=== PATIENT | female | born 1965 | race Caucasian/White ===

== ENCOUNTER → 2016-12-08 | Day surgery (SDC) | payer OTHER ==
[2016-11-29 13:03] VITALS: Ht 154.9 cm; Wt 86.4 kg
[~2016-12-08] VITALS: Ht 154.9 cm; Wt 86.4 kg
[~2016-12-08] MED LIST: ATEN-173 PO; ATV/1 PO; CLR10 PO; ESCI1TAB10 PO; FENO145T26 PO; LIDOCAINE HCL 2% 2 ML VIAL (20MG/ML) ONE; MIDAZOLAM HCL 1 MG/ML 2ML VIAL ONE; PHENYLEPHRINE 100MCG/ML 5ML SYR ONE; PROPOFOL IV EMULSION 10 MG/ML 20 ML VIAL IV ONE; SODIUM CHLORIDE 0.9% 500ML 500 ML IV ONE; TRVOPS OPB
--- NOTE | 2016-12-08 10:46 | Endo History and Physical ---
History & Physical Date of Service: December 08, 2016. Chief Complaint: screening Referring Physician: Dr. Wily Mares History of Present Illness 51 yo CF who presents for screening colonoscopy. Past Surgical History Hx Cardiac Surgery: No Hx Internal Defibrillator: No Hx Pacemaker: No Hx Abdominal Surgery: Yes (, RAMSES) Hx of Implantable Prosthesis: No Hx Post-Op Nausea and Vomiting: No Hx Cancer Surgery: No Hx Thoracic Surgery: No Hx Orthopedic: No Hx Urinary Tract Surgery: No Family History None Social History Smoking Status: Current Every Day Smoker Hx Substance Use: No Hx Alcohol Use: No Allergies Coded Allergies: NO KNOWN DRUG ALLERGIES (Verified Allergy, Unknown, none, 11/29/16) Current Medications Reported Home Medications Medications Dose Route/Sig Max Daily Dose Days Date Category Claritin (Loratadine) 10 Mg Tab 10 Mg PO QAM 11/29/16 Reported Lexapro (Escitalopram Oxalate) 20 Mg Tab 20 Mg PO QAM 04/30/14 Reported Tricor (Fenofibrate) 145 Mg Tab 145 Mg PO HS 04/30/14 Reported Ativan (Lorazepam) 1 Mg Tab 1 Mg PO HS 04/30/14 Reported Tenormin (Atenolol) 25 Mg Tab 25 Mg PO HS 06/04/09 Reported Travatan Oph Soln 0.004% * (Travoprost) 37 Drops/2.5 Ml Soln 1 Drop OPB HS 05/22/07 Reported Vital Signs Weight (Kilograms): 86.36 Height (Feet): 5 Height (Inches): 1 Date Time Temp Pulse Resp B/P Pulse Ox O2 Delivery O2 Flow Rate FiO2 12/08/16 09:48 36.8 93 18 140/86 97 Room Air Physical Exam General Appearance: WD/WN, no apparent distress Respiratory/Chest: Auscultation: breath sounds normal Cardiovascular: Heart Auscultation: RRR Abdomen: Bowel Sounds: normal Inspection & Palpation: soft, non-distended, no tenderness, guarding & rebound Assessment and Plan Assessment: 51 yo CF who presents for screening colonoscopy. Plan: Proceed with colonoscopy.
--- NOTE | 2016-12-08 11:26 | Discharge Instructions ---
Endoscopy Patient Instructions Date / Procedure(s) Performed December 08, 2016. Colonoscopy Allergy Information Coded Allergies: NO KNOWN DRUG ALLERGIES (Verified Allergy, Unknown, none, 11/29/16) Discharge Date / Findings December 08, 2016. Colon polyps Diverticulosis Internal hemorrhoids Provider Instructions Activity Restrictions - No exercising or heavy lifting for 24 hours. - Do not drink alcohol the day of the procedure. - Do not drive a car or operate machinery until the day after the procedure. - Do not make any important decisions or sign important papers in 24 hours after the procedure. Following Day: - Return to full activity which may include returning to work/school. Diet Start your diet with liquids and light foods (jello, soup, juice, toast). Then eat your usual diet if not nauseated. Treatment For Common After Affects For mild abdominal pain, bloating, or excessive gas: - Rest - Eat lightly - Lie on right side Follow-Up Information Follow-up with Dr. Wily Mares as scheduled Anesthesia Information What You Should Know You have had a procedure that required some medicine to reduce anxiety and discomfort. This treatment is called moderate sedation. After receiving the treatment, you may be sleepy, but you will be able to breathe on your own. The effects of the treatment may last for several hours. Follow these instructions along with Activity/Diet recommendations noted above: * Do NOT do anything where dizziness or clumsiness would be dangerous. * Rest quietly at home today, then you can be up and about tomorrow. * Have a responsible person stay with you the rest of today. * You may have had an I.V. today. If so, you may take the dressing off later today. Recommendations Call your doctor if: * Trouble breathing * Continuous vomiting for more than 24 hours * Temperature above 101 degrees * Severe abdominal pain or bloating * Pain not relieved by pain medicine ordered * There is increased drainage or redness from any incision * A large amount of rectal bleeding greater than 2-3 tablespoons. (If you had a polyp/s removed or have hemorrhoids, a small amount of blood - from the rectum is to be expected.) * You have any unanswered questions or concerns. IN THE EVENT OF A SERIOUS EMERGENCY, GO TO THE NEAREST EMERGENCY ROOM Your discharge instructions were prepared by provider Ureil Yeager. Patient Instructions Signature Page Veronica Gresham Patient (or Guardian) Signature/Date: I have read and understand the instructions given to me by my caregivers. Caregiver/RN/Doctor Signature/Date: The above-named patient and/or guardian has received patient instructions on this date. + Original Patient Signature Page (only) stays with chart. Please make copy for patient.
--- NOTE | 2016-12-08 11:26 | GI REPORT ---
Procedure Date: 12/08/2016 10:38 AM Procedure: Colonoscopy Indications: Screening for colorectal malignant neoplasm Medicines: Monitored Anesthesia Care Complications: No immediate complications. Estimated Blood Loss: Estimated blood loss: none. Procedure: Pre-Anesthesia Assessment: - Prior to the procedure, a History and Physical was performed, and patient medications and allergies were reviewed. The patient's tolerance of previous anesthesia was also reviewed. The risks and benefits of the procedure and the sedation options and risks were discussed with the patient. All questions were answered, and informed consent was obtained. Prior Anticoagulants: The patient has taken no previous anticoagulant or antiplatelet agents. ASA Grade Assessment: II - A patient with mild systemic disease. After reviewing the risks and benefits, the patient was deemed in satisfactory condition to undergo the procedure. After I obtained informed consent, the scope was passed under direct vision. Throughout the procedure, the patient's blood pressure, pulse, and oxygen saturations were monitored continuously. The scope was introduced through the anus and advanced to the terminal ileum. The terminal ileum, ileocecal valve, appendiceal orifice, and rectum were photographed. The colonoscopy was performed without difficulty. The patient tolerated the procedure well. The quality of the bowel preparation was good. Findings: Five sessile polyps were found in the rectum, in the sigmoid colon, in the ascending colon and in the cecum. The polyps were 5 to 10 mm in size. These polyps were removed with a hot snare. Resection and retrieval were complete. Multiple small-mouthed diverticula were found in the sigmoid colon. Non-bleeding internal hemorrhoids were found during retroflexion. The hemorrhoids were small. Impression: - Five 5 to 10 mm polyps in the rectum, in the sigmoid colon, in the ascending colon and in the cecum, removed with a hot snare. Resected and retrieved. - Diverticulosis in the sigmoid colon. - Non-bleeding internal hemorrhoids. Recommendation: - Resume previous diet. - Continue present medications. - Repeat colonoscopy for surveillance based on pathology results. - Return to primary care physician as previously scheduled. Uriel Yeager DO 12/08/2016 11:25:00 AM This report has been signed electronically. Note Initiated On: 12/08/2016 10:38 AM I attest to the content of the Intraoperative Record and orders documented therein, exceptions below
[2016-12-08 11:57] VITALS: BP 118/68; PULSE 69; O2SAT 96
--- NOTE | 2016-12-08 13:42 | Anesthesiology Progress Note ---
Anesthesia Post Op Note Date & Time December 08, 2016 at 13:41 Vital Signs Pain Intensity: 0 Vital Signs Past 12 Hours Date Time Temp Pulse Resp B/P Pulse Ox O2 Delivery O2 Flow Rate FiO2 12/08/16 11:57 69 20 118/68 96 Room Air 12/08/16 11:44 62 18 133/80 96 Room Air 12/08/16 11:29 73 18 129/89 96 Room Air 12/08/16 11:14 73 18 111/97 96 Room Air 12/08/16 09:48 36.8 93 18 140/86 97 Room Air Notes Mental Status: alert / awake / arousable, participated in evaluation Pt Amnestic to Procedure: Yes Nausea / Vomiting: adequately controlled Pain: adequately controlled Airway Patency, RR, SpO2: stable & adequate BP & HR: stable & adequate Hydration State: stable & adequate Anesthetic Complications: no major complications apparent
== END | disposition home or self-care (01) ==
LOC: C.GI 09:35
PROVIDERS: ATTEND Internal Medicine
DX: Z12.11 Encounter for screening for malignant neoplasm of colon (principal); K64.8 Other hemorrhoids; K57.30 Diverticulosis of large intestine without perforation or abscess without bleeding; F17.200 Nicotine dependence, unspecified, uncomplicated; Z90.49 Acquired absence of other specified parts of digestive tract

== ENCOUNTER → 2017-10-06 | Outpatient (CLI) | payer OTHER ==
[~2017-10-06] MED LIST changes: -LIDOCAINE HCL 2% 2 ML VIAL (20MG/ML) ONE; -MIDAZOLAM HCL 1 MG/ML 2ML VIAL ONE; -PHENYLEPHRINE 100MCG/ML 5ML SYR ONE; -PROPOFOL IV EMULSION 10 MG/ML 20 ML VIAL IV ONE; -SODIUM CHLORIDE 0.9% 500ML 500 ML IV ONE
[2017-10-06 08:00] LABS: BASO % 0.7 %; BASO ABS # 0.07 K/uL (0-0.2); EOS % 3.5 %; EOS ABS # 0.33 K/uL (0-0.5); HEMATOCRIT 42.2 % (37-47); HEMOGLOBIN 14.1 g/dL (12.0-16.0); IG# 0.01 K/uL (0.00-0.02); LYMPH % 36.3 %; MEAN CELL VOLUME 90.8 fL (80-100); MEAN CORPUSCULAR HEMOGLOBIN 30.3 pg (25-34); MEAN CORPUSCULAR HGB CONC 33.4 g/dl (32-36); MEAN PLATELET VOLUME 9.6 fL (7.4-10.4); MONO % 5.6 %; MONO ABS # 0.52 K/uL (0.11-0.59); NEUT % 53.8 %; NEUT ABS # 5.03 K/uL (1.4-6.5); PLATELET COUNT 369 K/uL (130-400); RED CELL DISTRIBUTION WIDTH CV 13.9 % (11.5-14.5); RED CELL DISTRIBUTION WIDTH SD 45.9 fL (36.4-46.3); WHITE BLOOD COUNT 9.36 K/uL (4.8-10.8)
[2017-10-06 08:24] LABS: ALT/SGPT 35 U/L (12-78); BLOOD UREA NITROGEN 15 mg/dl (7-18); CALCIUM 8.9 mg/dl (8.5-10.1); CARBON DIOXIDE 25 mmol/L (21-32); CHOLESTEROL 165 mg/dl (0-200); CREATININE 0.85 mg/dl (0.60-1.20); GLUCOSE 127 mg/dl (70-99); POTASSIUM 4.1 mmol/L (3.5-5.1); SODIUM 136 mmol/L (136-145)
[2017-10-06 08:42] LABS: ALKALINE PHOSPHATASE 60 U/L (45-117); AST/SGOT 21 U/L (15-37); LDL CHOLESTEROL CALCULATED 89 mg/dl; TOTAL PROTEIN 7.7 gm/dl (6.4-8.2)
== END | disposition home or self-care (01) ==
LOC: C.LAB 07:10
PROVIDERS: ATTEND Family Medicine
DX: E11.65 Type 2 diabetes mellitus with hyperglycemia (principal); E03.9 Hypothyroidism, unspecified; E78.2 Mixed hyperlipidemia; I10 Essential (primary) hypertension

== ENCOUNTER → 2017-11-08 | Outpatient (CLI) | payer OTHER | END | disposition home or self-care (01) | LOC: C.LAB 09:38 | PROVIDERS: ATTEND Emergency Medicine | DX: R30.0 Dysuria (principal); R35.0 Frequency of micturition ==

== ENCOUNTER 2022-12-02 19:53 | Inpatient (IN) ==
[2022-12-02] MEDS ORDERED: HYDROmorphone INJ 0.5 MG/0.5 ML SYR IV PRN (20:40)
[2022-12-02] MEDS ORDERED: ONDANSETRON INJ 2 MG/ML 2 ML VIAL IV STA (20:40)
[2022-12-02 20:45] LABS: Basophils # (auto) 0.09 K/uL (0-0.2); Basophils % (auto) 0.7 %; Eosinophils # (auto) 0.25 K/uL (0-0.50); Hematocrit (blood only) 44.8 % (37.0-47.0); Hemoglobin 14.8 g/dl (12.0-16.0); Immature Granulocytes # (auto) 0.09 K/uL (0.01-0.20); Immature Granulocytes % (auto) 0.7 %; Lymphocytes # (auto) 4.23 K/uL (1.2-3.4); Mean Corpuscular Hemoglobin 30.1 pg (25.0-34.0); Mean Corpuscular Volume 91.1 fL (80.0-100.0); Mean Platelet Volume 9.1 fL (9.4-12.4); Monocytes # (auto) 0.69 K/uL (0.11-0.59); Monocytes % (auto) 5.4 %; Neutrophils # (auto) 7.46 K/uL (1.40-6.50); Neutrophils % (auto) 58.2 %; Platelet Count 403 K/uL (130-400); RDW Standard Deviation 46.9 fL (36.4-46.3); Red Blood Count 4.92 M/uL (4.20-5.40); White Blood Count 12.81 K/ul (4.8-10.8)
--- NOTE | 2022-12-02 20:45 | Emergency Department Note ---
Impression & Plan Acute left-sided back pain with sciatica ED Provider Note INFORMANT: Patient ED PROVIDER(S): Francis Culver MD CHIEF COMPLAINT: Back pain PLAN: Disposition: Admitted Condition: Good Outpatient prescription management: none Referral: None MEDICAL DECISION MAKING: Patient presented because of acute worsening of her low back pain issues. Patient is pending surgery with Dr. Herndon. She had a work-up initiated. She was treated with a dose of IV Dilaudid and initially felt better but noted an ill feeling with the medication and requested something different. She was t reated with multiple doses of IV morphine. The patient had blood work obtained. Chemistry panel was unremarkable however her CBC revealed a leukocytosis. This was new compared to prior. The patient and I discussed doing advanced imaging and she was in agreement. MRI ordered. Patient was given a dose of Ativan prior to MRI. I did consult with her spine surgeon, Dr. Herndon. In light of the patient's acute worsening he felt that admission for pain control and consultation was in order. Patient underwent MR imaging and did show significant stenosis and disc disease. Dr. Herndon did request internal medicine to admit the patient. Consultation was made with Dr. Grabiel Evans of the [facility] service. Patient was evaluated in the ER for further management. Discussed with patient access manager After review of the information above and other included data, I feel the patie nt requires admission. Triage Nursing notes reviewed and agree them. Vital Signs: reviewed and remarkable for no significant abnormalities Prior /Outside records reviewed: prior spine records reviewed Differential diagnosis: Musculoskeletal, disc herniation, fracture, metastatic disease, cord compression, discitis, sciatica, cauda equina, infection, aortic disease, renal colic, gastrointestinal, as well as other pathologies. Diagnostics, as interpreted by me: ECG: none Cardiac Monitoring: Cardiac monitoring ordered by me: The patient was placed on continuous cardiac monitoring and observed. It revealed a normal sinus rhythm at 64 beats per minute without ectopy or evidence of dysrhythmia. Medical decision rules: none Imaging studies: MR imaging as above. Degenerative disc disease present. I refer you to the EMR for further details. HPI: The patient is a 57 year old female who presents to the Emergency Room with complaints of left lower back pain. This started to worsen 3 days ago and is recurrent for her. She has noted previous issues but since june has had more issues. Saw Dr. Herndon and found to have significant DDD and is scheduled for surgery in January. The patient also notes the following associated symptoms, nausea, numbness in the left buttock and left inner thigh. The patient has tried ibuprofen for relieving factors. Current pain is rated as 8/10. Pt denies LOC, headache, fevers, chills, diaphoresis, visual changes, neck pain, chest pain, breathing difficulties, vomiting, abdominal pain, melena, hematochezia, urinary symptoms, bowel or bladder issues, weakness, lymp hadenopathy, rash, or other complaints. PAST MEDICAL HISTORY: See Below, DM PAST SURGICAL HISTORY: See Below, SOCIAL HISTORY: See Below, HOME MEDICATIONS: See Below ALLERGIES: See Below VITALS: See Below PHYSICAL EXAMINATION: GENERAL: Awake, alert, uncomfortable-appearing, in no distress HENT: Normocephalic, atraumatic. Oropharynx unremarkable. EYES: Normal conjunctiva. Sclera non-icteric. NECK: Inspection normal. Non-tender. Supple. No nuchal rigidity. FROM. No masses. RESPIRATORY: Clear to auscultation. No wheezes. No rales. Normal respiratory effort. CARDIAC: Normal rate. Normal rhythm. No murmurs. No rubs. Extremities warm and well perfused. Pulses equal. No JVD. GI: Soft, non-distended. No tenderness to palpation. No rebound or guarding. No masses. RECTAL: Deferred. MUSCULOSKELETAL: Atraumatic. Chest examination reveals no tenderness. The back is symmetrical on inspection without obvious abnormality. There is no CVA tenderness to palpation. No joint edema. LOWER EXTREMITIES: Calves are equal size bilaterally and non-tender. No edema. No discoloration. NEURO: Normal sensorium. No sensory or motor deficits noted. +left SLR. No saddle anesthesia. SKIN: No rash or jaundice noted. Past Med/Surg History Medical History (Updated 12/03/22 @ 10:30 by Samir Herndon DO) Anxiety Diabetes mellitus, type 2 Elevated platelet count FOLLOWS HEMATOLOGY (BEING MONITORED) Glaucoma Hx of colonic polyps Hyperlipidemia Hypertension Surgical History History of cardiac cath 7 YRS AGO @ [facility] > FOR CHEST PAIN > NO STENTS History of section X 1 History of cholecystectomy History of colonoscopy History of dilatation and curettage History of endoscopic sinus surgery History of tooth extraction Family History Grandmother (Maternal) Diabetes Family history of diabetes mellitus Mother Family history of diabetes mellitus Other No family history of adverse response to anesthesia Social History Smoking Status: Current every day smoker Tobacco Type: Cigarettes Cigarettes Per Day: 10; Second Hand Exposure: Yes (IN THE PAST); Do You Dip or Chew Tobacco: No; Hx Alcohol Use: Yes Hx Substance Use: No Preferred Language: Hungarian Communication Ability: Effective Back Maker Required: No Beliefs That Will Affect Care: None Current Living Situation: Family Current Living Situation Comment: Lives with and step son Feels Safe at Home: Yes Assistive Devices: Glasses Allergies Allergies Allergy/AdvReac Type Severity Reaction Status Date / Time No Known Allergies Allergy Verified 12/02/22 20:28 Home Meds Home Medications Medication Instructions Recorded Confirmed atenolol 25 mg tablet 25 mg PO QPM 06/06/19 12/02/22 atorvastatin 20 mg tablet (Lipitor) 20 mg PO HS 06/06/19 12/02/22 cetirizine 10 mg tablet (Zyrtec) 10 mg PO QAM 06/06/19 12/02/22 fenofibrate nanocrystallized 145 145 mg PO HS 06/06/19 12/02/22 mg tablet lorazepam 1 mg tablet (Ativan) 1 mg PO HS PRN Anxiety 06/06/19 12/02/22 metformin 500 mg tablet 500 mg PO BID 06/06/19 12/02/22 travoprost 0.004 % eye drops 1 drp OPB HS 06/06/19 12/02/22 (Travatan Z) dorzolamide 22.3 mg-timolol 6.8 1 drp ophthalmic (eye) [facility] 11/02/20 12/02/22 mg/mL eye drops lisinopril 20 mg tablet 20 mg PO QAM 11/02/20 12/02/22 acetaminophen 500 mg tablet 1,000 mg PO DIRECTED PRN 12/02/22 12/02/22 (Tylenol Extra Strength) PAIN/FEVER docusate sodium 100 mg capsule 100 mg PO DAILY 12/02/22 12/02/22 (Colace) empagliflozin 25 mg tablet 25 mg PO QAM 12/02/22 12/02/22 (Jardiance) ibuprofen 200 mg tablet 400 mg PO DIRECTED PRN 12/02/22 12/02/22 PAIN/FEVER Previous Rx's Medication Instructions Recorded tizanidine 4 mg tablet 4 mg PO BID PRN muscle spasticity 10/06/22 #30 tabs Results & Data (ED) Vital Signs Vital Signs - 24 hr 12/02/22 19:55 12/02/22 21:00 12/02/22 21:01 Temperature 36.6 C Temperature Source Temporal Artery Scan Pulse Rate 101 H Pulse Rate [Finger] 83 Respiratory Rate 18 20 Respiratory Effort / Characteristics Respiratory Depth Normal Blood Pressure 182/89 H Blood Pressure [Left Arm] Blood Pressure Mean 120 Blood Pressure Mean [Left Arm] Pulse Oximetry 97 99 99 Oxygen Delivery Method Room Air Room Air Room Air Sepsis Recent Fever Within 48 Hours No Sepsis New/Unexplained Change in Mental Status No Sepsis Action Taken by Nursing No Action Required 12/02/22 21:00 12/03/22 03:30 Temperature Temperature Source Pulse Rate Pulse Rate [Finger] Respiratory Rate 16 Respiratory Effort / Characteristics Non-Labored Respiratory Depth Normal Blood Pressure Blood Pressure [Left Arm] 159/95 H 112/68 Blood Pressure Mean Blood Pressure Mean [Left Arm] 116 82 Pulse Oximetry 98 Oxygen Delivery Method Room Air Sepsis Recent Fever Within 48 Hours Sepsis New/Unexplained Change in Mental Status Sepsis Action Taken by Nursing Laboratory Data 12/02/22 20:29 12/02/22 20:29 Lab Results 12/02/22 12/02/22 12/02/22 Range/Units 20:29 20:29 22:30 WBC 12.81 H (4.8-10.8) K/ul RBC 4.92 (4.20-5.40) M/uL Hgb 14.8 (12.0-16.0) g/dl Hct 44.8 (37.0-47.0) % MCV 91.1 (80.0-100.0) fL MCH 30.1 (25.0-34.0) pg MCHC 33.0 (32.0-36.0) g/dL RDW Std Deviation 46.9 H (36.4-46.3) fL RDW Coeff of Robert 14.0 (11.5-14.5) % Plt Count 403 H (130-400) K/uL MPV 9.1 L (9.4-12.4) fL Immature Gran % (Auto) 0.7 % Neut % (Auto) 58.2 % Lymph % (Auto) 33.0 % [place] % (Auto) 5.4 % Eos % (Auto) 2.0 % Baso % (Auto) 0.7 % Neut # (Auto) 7.46 H (1.40-6.50) K/uL Lymph # (Auto) 4.23 H (1.2-3.4) K/uL [place] # (Auto) 0.69 H (0.11-0.59) K/uL Eos # (Auto) 0.25 (0-0.50) K/uL Baso # (Auto) 0.09 (0-0.2) K/uL Immature Gran # (Auto) 0.09 (0.01-0.20) K/uL Sodium 134 L (136-145) mmol/L Potassium 4.1 (3.5-5.1) mmol/L Chloride 102 (98-107) mmol/L Carbon Dioxide 24 (21-32) mmol/L Anion Gap 8 (3-11) BUN 17 (6-23) mg/dl Creatinine 1.04 (0.6-1.2) mg/dl Est Cr Clr Drug Dosing 57.5 ml/min Est GFR ( Amer) 69.1 ml/min Est GFR (Non-Af Amer) 59.6 ml/min BUN/Creatinine Ratio 16.3 (10-20) Glucose 141 H (70-99(Fasting)) mg/dl Calcium 9.8 (8.6-10.3) mg/dl Total Bilirubin 0.2 (0.2-1.0) mg/dl AST 17 (13-39) U/L ALT 17 (7-52) U/L Alkaline Phosphatase 51 (34-104) U/L C-Reactive Protein < 0.50 (0-0.5) mg/dl Total Protein 7.4 (6.0-8.3) gm/dl Albumin 4.6 (3.4-5.0) gm/dl Globulin 2.8 (2.5-4.0) gm/dl Albumin/Globulin Ratio 1.6 (0.9-2) Urine Color Yellow Urine Appearance Clear (Clear) Urine pH 7.0 (4.5-7.5) Ur Specific [place] 1.007 (1.000-1.030) Urine Protein Negative (Negative) Urine Glucose (UA) 2+ H (Negative) Urine Ketones Negative (Negative) Urine Blood 1+ H (Negative) Urine Nitrite Negative (Negative) Urine Bilirubin Negative (Negative) Urine Urobilinogen Negative (Negative) Ur Leukocyte Esterase Trace H (Negative) Urine WBC (Auto) 1-5 (0-5) /hpf Urine RBC (Auto) 0-4 (0-4) /hpf U Hyaline Cast (Auto) 0 (0-5) /lpf U Epithel Cells (Auto) 5-10 H (0-5) /lpf Urine Bacteria (Auto) Negative (Negative) SARS-CoV-2, RNA, NAAT (NEGATIVE) 12/03/22 Range/Units 01:35 WBC (4.8-10.8) K/ul RBC (4.20-5.40) M/uL Hgb (12.0-16.0) g/dl Hct (37.0-47.0) % MCV (80.0-100.0) fL MCH (25.0-34.0) pg MCHC (32.0-36.0) g/dL RDW Std Deviation (36.4-46.3) fL RDW Coeff of Robert (11.5-14.5) % Plt Count (130-400) K/uL MPV (9.4-12.4) fL Immature Gran % (Auto) % Neut % (Auto) % Lymph % (Auto) % [place] % (Auto) % Eos % (Auto) % Baso % (Auto) % Neut # (Auto) (1.40-6.50) K/uL Lymph # (Auto) (1.2-3.4) K/uL [place] # (Auto) (0.11-0.59) K/uL Eos # (Auto) (0-0.50) K/uL Baso # (Auto) (0-0.2) K/uL Immature Gran # (Auto) (0.01-0.20) K/uL Sodium (136-145) mmol/L Potassium (3.5-5.1) mmol/L Chloride (98-107) mmol/L Carbon Dioxide (21-32) mmol/L Anion Gap (3-11) BUN (6-23) mg/dl Creatinine (0.6-1.2) mg/dl Est Cr Clr Drug Dosing ml/min Est GFR ( Amer) ml/min Est GFR (Non-Af Amer) ml/min BUN/Creatinine Ratio (10-20) Glucose (70-99(Fasting)) mg/dl Calcium (8.6-10.3) mg/dl Total Bilirubin (0.2-1.0) mg/dl AST (13-39) U/L ALT (7-52) U/L Alkaline Phosphatase (34-104) U/L C-Reactive Protein (0-0.5) mg/dl Total Protein (6.0-8.3) gm/dl Albumin (3.4-5.0) gm/dl Globulin (2.5-4.0) gm/dl Albumin/Globulin Ratio (0.9-2) Urine Color Urine Appearance (Clear) Urine pH (4.5-7.5) Ur Specific [place] (1.000-1.030) Urine Protein (Negative) Urine Glucose (UA) (Negative) Urine Ketones (Negative) Urine Blood (Negative) Urine Nitrite (Negative) Urine Bilirubin (Negative) Urine Urobilinogen (Negative) Ur Leukocyte Esterase (Negative) Urine WBC (Auto) (0-5) /hpf Urine RBC (Auto) (0-4) /hpf U Hyaline Cast (Auto) (0-5) /lpf U Epithel Cells (Auto) (0-5) /lpf Urine Bacteria (Auto) (Negative) SARS-CoV-2, RNA, NAAT NEGATIVE (NEGATIVE) Administered Medications Acetaminophen (Acetaminophen 500 Mg Tab) 1,000 mg PO TID [facility] Stop: 01/02/23 08:59 Last Admin: 12/03/22 14:32 Dose: Not Given Documented By: Admin: 12/03/22 09:58 Dose: 1,000 mg Documented By: JOSEPH Cetirizine HCl (Cetirizine Hcl 10 Mg Tablet) 10 mg PO QAM [facility] Stop: 01/02/23 08:59 Last Admin: 12/03/22 11:00 Dose: Not Given Documented By: JOSEPH Dorzolamide/Timolol (Dorzolamide/Timolol 22.3/6.8mg/Ml 10 Ml Btl) 1 drops OP BID [facility] Stop: 01/02/23 08:59 Last Admin: 12/03/22 08:34 Dose: 1 drops Documented By: JOSEPH Heparin Sodium (Porcine) (Heparin Sod 5,000 Unit/0.5 Ml Vial) 5,000 units SQ Q12 [facility] Stop: 01/02/23 08:59 Last Admin: 12/03/22 08:33 Dose: 5,000 units Documented By: JOSEPH Dexamethasone 4 mg/ Syringe 1 mls @ 1 mls/min IV Q8H [facility] Stop: 01/02/23 09:59 Last Admin: 12/03/22 17:36 Dose: 1 mls/min Documented By: Admin: 12/03/22 09:58 Dose: 1 mls/min Documented By: JOSEPH Promethazine HCl 12.5 mg/ (Sodium Chloride) 50.5 mls @ 202 mls/hr IV Q6H PRN PRN Reason: Nausea And Vomiting Stop: 01/02/23 11:33 Last Infusion: 12/03/22 12:05 Dose: 0 mls/hr Documented By: Admin: 12/03/22 11:46 Dose: 202 mls/hr Documented By: JOSEPH Insulin Aspart (Insulin Aspart Per Unit Charge) 0 units SC Q6 [facility] Stop: 01/02/23 06:14 Last Admin: 12/03/22 17:29 Dose: 7 units Documented By: JOSEPH Co-signed By: ABILIO Admin: 12/03/22 13:00 Dose: Not Given Documented By: Admin: 12/03/22 06:36 Dose: Not Given Documented By: GUERO Co-signed By: ROYA Lidocaine (Lidocaine 5% 1 Patch) 1 patch TD QAM [facility] Stop: 01/02/23 08:59 Last Admin: 12/03/22 09:58 Dose: 1 patch Documented By: JOSEPH Morphine Sulfate (Morphine Sulfate 4 Mg/Ml 1 Ml Carp\Vial) 4 mg IV Q3H PRN PRN Reason: Severe Pain (Scale 7, 8, 9,10) Stop: 12/17/22 05:20 Last Admin: 12/03/22 19:07 Dose: 4 mg Documented By: Admin: 12/03/22 15:20 Dose: 4 mg Documented By: Admin: 12/03/22 12:29 Dose: 4 mg Documented By: Admin: 12/03/22 07:50 Dose: 4 mg Documented By: JOSEPH Ondansetron HCl (Ondansetron Inj 2 Mg/Ml 2 Ml Vial) 4 mg IV Q6H PRN PRN Reason: Nausea Stop: 01/02/23 05:20 Last Admin: 12/03/22 15:20 Dose: 4 mg Documented By: Admin: 12/03/22 07:50 Dose: 4 mg Documented By: JOSEPH Discontinued Medications Hydromorphone HCl (Hydromorphone Inj 0.5 Mg/0.5 Ml Syr) 0.5 mg IV Q15M PRN PRN Reason: Pain Stop: 12/16/22 20:39 Last Admin: 12/02/22 20:54 Dose: 0.5 mg Documented By: CANDELARIA Lorazepam (Lorazepam 2 Mg/1 Ml Vial) 1 mg IV NOW STA Stop: 12/02/22 23:17 Last Admin: 12/03/22 01:29 Dose: 1 mg Documented By: SHAYLA Lorazepam (Lorazepam 2 Mg/1 Ml Vial) Confirm Administered Dose 2 mg .ROUTE .STK- MED ONE Stop: 12/03/22 01:27 Last Admin: 12/03/22 01:28 Dose: Not Given Documented By: SHAYLA Morphine Sulfate (Morphine Sulfate 4 Mg/Ml 1 Ml Carp\Vial) 2 mg IV Q15M PRN PRN Reason: Pain Stop: 12/16/22 21:45 Last Admin: 12/03/22 04:17 Dose: 2 mg Documented By: Admin: 12/03/22 02:42 Dose: 2 mg Documented By: Admin: 12/02/22 23:42 Dose: 2 mg Documented By: Admin: 12/02/22 22:20 Dose: 2 mg Documented By: CANDELARIA Ondansetron HCl (Ondansetron Inj 2 Mg/Ml 2 Ml Vial) 4 mg IV NOW STA Stop: 12/02/22 20:41 Last Admin: 12/02/22 20:54 Dose: 4 mg Documented By: CANDELARIA Discharge Plan Visit Data Chief Complaint: Back Injury/Pain Stated Complaint: BACK AND HIP PAIN ED Provider: Francis Culver Discharge Problem: Acute left-sided back pain with sciatica Patient Disposition: Admitted As Inpatient Discharge Instructions Interventions: ED Discharge Assessment Last Done: 12/03/22 05:15
[2022-12-02 20:58] LABS: Alanine Aminotransferase 17 U/L (7-52); Albumin Globulin Ratio 1.6 (0.9-2); Albumin Level 4.6 gm/dl (3.4-5.0); Alkaline Phosphatase 51 U/L (34-104); Anion Gap 8 (3-11); Aspartate Aminotransferase 17 U/L (13-39); BUN Creatinine Ratio 16.3 (10-20); Bilirubin,Total 0.2 mg/dl (0.2-1.0); Blood Urea Nitrogen 17 mg/dl (6-23); C Reactive Protein < 0.50 mg/dl (0-0.5); Calcium 9.8 mg/dl (8.6-10.3); Carbon Dioxide 24 mmol/L (21-32); Chloride 102 mmol/L (98-107); Creatinine Clr Calc Pharmacy 57.5 ml/min; Est GFR (African American) 69.1 ml/min; Est GFR (Non-African American) 59.6 ml/min; Globulin 2.8 gm/dl (2.5-4.0); Glucose 141 mg/dl (70-99(Fasting)); Potassium 4.1 mmol/L (3.5-5.1); Sodium 134 mmol/L (136-145); Total Protein 7.4 gm/dl (6.0-8.3)
[2022-12-02] MEDS: MoRPHine SULFATE 4 MG/ML 1 ML CARP\\VIAL IV PRN ×2 (22:20→23:42)
[2022-12-02 22:48] LABS: Appearance Urine Clear (Clear); Bacteria Urine Automated Negative (Negative); Bilirubin Urine Negative (Negative); Blood Urine 1+ (Negative); Cast Urine Automated 0 /lpf (0-5); Color Urine Yellow; Glucose Urine UA 2+ (Negative); Ketones Urine Negative (Negative); Leukocyte Esterase Urine Trace (Negative); Nitrite Urine Negative (Negative); Protein Urine Negative (Negative); RBC Urine Automated 0-4 /hpf (0-4); Specific Gravity Urine 1.007 (1.000-1.030); Urobilinogen Urine Negative (Negative)
[2022-12-02] MEDS ORDERED: LORazepam 2 MG/1 ML VIAL IV STA (23:16)
[2022-12-03] MEDS ORDERED: LORazepam 2 MG/1 ML VIAL ONE (01:26)
--- NOTE | 2022-12-03 02:28 | Magnetic Resonance Report ---
Exam(s): MRI L SPINE Without Contrast EXAM: MR Lumbar Spine Without Intravenous Contrast CLINICAL HISTORY: Reason for exam: low back pain, left sciatica, elev. WBC. TECHNIQUE: Magnetic resonance images of the lumbar spine without intravenous contrast in multiple planes. COMPARISON: 07/12/2022. FINDINGS: Vertebrae: There is mild anterolisthesis of L5 on S1 (6 mm). Interspaces: Multilevel disc desiccation seen, more severe from L3-S1. Spinal cord: The spinal cord terminates at mid L1 level with normal signal in the visualized portion. Soft tissues: Unremarkable. DISCS/SPINAL CANAL/NEURAL FORAMINA: L1-L2: Disc desiccation. Mild diffuse posterior disc bulge. No spinal stenosis or neuroforaminal encroachment. L2-L3: Disc desiccation. Mild diffuse posterior disc bulge. No spinal stenosis or neuroforaminal encroachment. L3-L4: Mild hypertrophy of ligamentum flavum and facet complex. Disc desiccation. Mild diffuse posterior disc bulge. No spinal stenosis or neuroforaminal encroachment. L4-L5: Broad-based central disc protrusion contouring the anterior aspect of the thecal sac. Minimal AP diameter of the thecal sac measures 7.9 mm. No significant spinal stenosis. No neuroforaminal impingement. L5-S1: Mild anterolisthesis as described. Nonspecific hypertrophy of the bilateral facets. No spinal stenosis. Other findings: There is multilevel narrowing of disc height consistent with disc degenerative disease. IMPRESSION: 1. Central disc protrusion at L4-L5 with mild narrowing of the thecal sac. No severe neuroforaminal encroachment noted. 2. Underlying disc degenerative disease as described with no acute fracture. 3. Mild, grade 1 anterolisthesis of L5 on S1. Electronically signed by: Radha Rodríguez MD 12/03/22 02:27 AM
[2022-12-03] MEDS: MoRPHine SULFATE 4 MG/ML 1 ML CARP\\VIAL IV PRN ×7 (02:42→22:14)
--- NOTE | 2022-12-03 03:33 | History & Physical Report ---
Date of Service December 03, 2022 Assessment & Plan (1) Acute left-sided back pain with sciatica: (2) Disc degeneration, lumbosacral: (3) Low back pain radiating to left lower extremity: (4) Spondylolysis, lumbosacral: (5) Spondylolisthesis at L5-S1 level: (6) Hyperlipidemia: (7) Hypertension: (8) Diabetes mellitus, type 2: (9) Anxiety: Plan Lumbar degenerative disc disease/L5-S1 herniated disc/left lower extremity radiculopathy- Give dexamethasone 10 mg IV now, then 4 mg IV every 8 hours Acetaminophen 650 mg p.o. every 6 hours as needed for mild pain or fever [place] 5/325, 1 every 4 hours as needed for moderate pain Morphine sulfate 4 mg IV every 4 hours as needed for severe pain Continue tizanidine 4 mg p.o. twice daily as needed N.p.o. overnight until assessed by spine surgery Consult orthopedic spine surgery Dr. Herndon Hypertension- Continue atenolol, hold lisinopril Diabetes mellitus- Hold metformin and Jardiance Placed on Accu-Cheks with NovoLog SSI Hyperlipidemia- Hold atorvastatin and fenofibrate Glaucoma- Continue usual eyedrops History of Present Illness Chief Complaint: The patient presents to the emergency department with worsening low back pain left buttock numbness and radicular pain down the left leg Primary Care Provider: Nichelle Pryor The patient is a 57-year-old female with a past medical history including tinnitus, hyperlipidemia, diabetes mellitus, hypertension, anxiety, lumbar degenerative disc disease and left lower extremity radiculopathy. She presents to the emergency department with worsening low back pain and left lower extremity radicular symptoms. The ED at spoken with orthopedic spine surgery Dr. Herndon, who wants the patient admitted to see in the a.m. Allergies Allergy/AdvReac Type Severity Reaction Status Date / Time No Known Allergies Allergy Verified 12/02/22 20:28 Home Medications Medication Instructions Recorded Confirmed Type atenolol 25 mg tablet 25 mg PO QPM 06/06/19 12/02/22 History atorvastatin 20 mg tablet (Lipitor) 20 mg PO HS 06/06/19 12/02/22 History cetirizine 10 mg tablet (Zyrtec) 10 mg PO QAM 06/06/19 12/02/22 History fenofibrate nanocrystallized 145 145 mg PO HS 06/06/19 12/02/22 History mg tablet lorazepam 1 mg tablet (Ativan) 1 mg PO HS PRN Anxiety 06/06/19 12/02/22 History metformin 500 mg tablet 500 mg PO BID 06/06/19 12/02/22 History travoprost 0.004 % eye drops 1 drp OPB HS 06/06/19 12/02/22 History (Travatan Z) dorzolamide 22.3 mg-timolol 6.8 1 drp ophthalmic (eye) [facility] 11/02/20 12/02/22 History mg/mL eye drops lisinopril 20 mg tablet 20 mg PO QAM 11/02/20 12/02/22 History tizanidine 4 mg tablet 4 mg PO BID PRN muscle spasticity 10/06/22 12/02/22 Rx #30 tabs acetaminophen 500 mg tablet 1,000 mg PO DIRECTED PRN 12/02/22 12/02/22 History (Tylenol Extra Strength) PAIN/FEVER docusate sodium 100 mg capsule 100 mg PO DAILY 12/02/22 12/02/22 History (Colace) empagliflozin 25 mg tablet 25 mg PO QAM 12/02/22 12/02/22 History (Jardiance) ibuprofen 200 mg tablet 400 mg PO DIRECTED PRN 12/02/22 12/02/22 History PAIN/FEVER Past Med/Surg History Medical History (Updated 12/03/22 @ 04:42 by Grabiel Evans MD) Anxiety Diabetes mellitus, type 2 Elevated platelet count FOLLOWS HEMATOLOGY (BEING MONITORED) Glaucoma Hx of colonic polyps Hyperlipidemia Hypertension Surgical History History of cardiac cath 7 YRS AGO @ [place] > FOR CHEST PAIN > NO STENTS History of section X 1 History of cholecystectomy History of colonoscopy History of dilatation and curettage History of endoscopic sinus surgery History of tooth extraction Family History Grandmother (Maternal) Diabetes Family history of diabetes mellitus Mother Family history of diabetes mellitus Other No family history of adverse response to anesthesia Social History Smoking Status: Former smoker Tobacco Type: Cigarettes Cigarettes Per Day: 10 CIG; Second Hand Exposure: Yes (IN THE PAST); Do You Dip or Chew Tobacco: No; Hx Alcohol Use: No Hx Substance Use: No Preferred Language: Sudanese Communication Ability: Effective Atmospheric Physicist Required: No Beliefs That Will Affect Care: None Current Living Situation: Family Current Living Situation Comment: AND STEP SON Feels Safe at Home: Yes Assistive Devices: Denture - Upper, Denture - Lower and Glasses Review of Systems Review of Systems: The patient denies chest pain, palpitations, shortness of breath, dyspnea on exertion, cough, lower extremity swelling, sore throat, fevers, chills, sweats, weight change, fatigue, nausea, vomiting, diarrhea , constipation, abdominal pain, pelvic pain, blood in urine or stool, dysuria, urinary frequency or urgency, lightheadedness, dizziness, headache, memory loss, loss of consciousness, rash, abnormal bruising or bleeding, imbalance, focal or generalized weakness, numbness or tingling in arms, generalized arthralgias or myalgias, neck pain, or night sweats. The review of systems is otherwise negative other than for that already noted above, and at least 10 systems have been reviewed. Physical Exam Physical Exam: The patient is awake, alert and oriented 3, well developed and well nourished, normocephalic and atraumatic, lying in bed and in no acute distress after having received IV pain medication HEENT--PERRL, EOMI, mucous membranes and oropharynx normal Neck--supple. No JVD. No bruits. Thyroid normal, trachea midline, no adenopathy. Heart--normal S1 and S2. No murmurs, rubs or gallops. Lungs--clear bilaterally, no respiratory distress, no accessory muscle use. Abdomen--normal bowel sounds and soft. Nontender. Nondistended, no hernias or masses, no organomegaly. Extremities--no cyanosis or clubbing. No edema. There are good distal pulses b/l. Dermatologic--normal skin turgor, normal color, no abnormal lymph nodes, no rash. Neurologic--cranial nerves II through XII grossly intact. Rheumatologic--limited exam due to pain Psychiatric--normal affect. Results & Data Results & Data Vital Signs (Past 12 Hours) Vital Signs Temp Pulse Pulse Resp BP BP Pulse Ox 12/03/22 03:30 16 112/68 98 12/02/22 21:00 159/95 H 12/02/22 21:01 99 12/02/22 21:00 83 20 99 12/02/22 19:55 36.6 C 101 H 18 182/89 H 97 O2 Del Method 12/03/22 03:30 Room Air 12/02/22 21:00 12/02/22 21:01 Room Air 12/02/22 21:00 Room Air 12/02/22 19:55 Room Air Laboratory Results Laboratory Results WBC 12.81 K/ul (4.8-10.8) H 12/02/22 20: RBC 4.92 M/uL (4.20-5.40) 12/02/22 20: Hgb 14.8 g/dl (12.0-16.0) 12/02/22 20: Hct 44.8 % (37.0-47.0) 12/02/22 20: MCV 91.1 fL (80.0-100.0) 12/02/22 20: MCH 30.1 pg (25.0-34.0) 12/02/22 20: MCHC 33.0 g/dL (32.0-36.0) 12/02/22 20: RDW Std Deviation 46.9 fL (36.4-46.3) H 12/02/22 20: RDW Coeff of Robert 14.0 % (11.5-14.5) 12/02/22 20: Plt Count 403 K/uL (130-400) H 12/02/22 20: MPV 9.1 fL (9.4-12.4) L 12/02/22 20: Immature Gran % (Auto) 0.7 % 12/02/22 20: Neut % (Auto) 58.2 % 12/02/22 20: Lymph % (Auto) 33.0 % 12/02/22 20: Levy % (Auto) 5.4 % 12/02/22 20: Eos % (Auto) 2.0 % 12/02/22 20: Baso % (Auto) 0.7 % 12/02/22 20: Neut # (Auto) 7.46 K/uL (1.40-6.50) H 12/02/22 20: Lymph # (Auto) 4.23 K/uL (1.2-3.4) H 12/02/22 20: Levy # (Auto) 0.69 K/uL (0.11-0.59) H 12/02/22 20: Eos # (Auto) 0.25 K/uL (0-0.50) 12/02/22: Baso # (Auto) 0.09 K/uL (0-0.2) 12/02/22: Immature Gran # (Auto) 0.09 K/uL (0.01-0.20) 12/02/22 20: Sodium 134 mmol/L (136-145) L 12/02/22: Potassium 4.1 mmol/L (3.5-5.1) 12/02/22: Chloride 102 mmol/L (98-107) 12/02/22: Carbon Dioxide 24 mmol/L (21-32) 12/02/22: Anion Gap 8 (3-11) 12/02/22 20: BUN 17 mg/dl (6-23) 12/02/22: Creatinine 1.04 mg/dl (0.6-1.2) 12/02/22: Est Cr Clr Drug Dosing 57.5 ml/min 12/02/22 20: Est GFR ( Amer) 69.1 ml/min 12/02/22 20: Est GFR (Non-Af Amer) 59.6 ml/min 12/02/22: BUN/Creatinine Ratio 16.3 (10-20) 12/02/22 20: Glucose 141 mg/dl (70-99(Fasting)) H 12/02/22: Calcium 9.8 mg/dl (8.6-10.3) 12/02/22: Total Bilirubin 0.2 mg/dl (0.2-1.0) 12/02/22 20: AST 17 U/L (13-39) 12/02/22: ALT 17 U/L (7-52) 12/02/22 20: Alkaline Phosphatase 51 U/L (34-104) 12/02/22:29 C-Reactive Protein < 0.50 mg/dl (0-0.5) 12/02/22 20: Total Protein 7.4 gm/dl (6.0-8.3) 12/02/22 20: Albumin 4.6 gm/dl (3.4-5.0) 12/02/22 20: Globulin 2.8 gm/dl (2.5-4.0) 12/02/22 20: Albumin/Globulin Ratio 1.6 (0.9-2) 12/02/22 20: Urine Color Yellow 12/02/22 22:30 Urine Appearance Clear (Clear) 12/02/22 22: Urine pH 7.0 (4.5-7.5) 12/02/22 22: Ur Specific [place] 1.007 (1.000-1.030) 12/02/22 22:30 Urine Protein Negative (Negative) 12/02/22 22:30 Urine Glucose (UA) 2+ (Negative) H 12/02/22 22:30 Urine Ketones Negative (Negative) 12/02/22 22: Urine Blood 1+ (Negative) H 12/02/22 22:30 Urine Nitrite Negative (Negative) 12/02/22 22:30 Urine Bilirubin Negative (Negative) 12/02/22 22:30 Urine Urobilinogen Negative (Negative) 12/02/22 22:30 Ur Leukocyte Esterase Trace (Negative) H 12/02/22 22:30 Urine WBC (Auto) 1-5 /hpf (0-5) 12/02/22 22:30 Urine RBC (Auto) 0-4 /hpf (0-4) 12/02/22 22:30 U Hyaline Cast (Auto) 0 /lpf (0-5) 12/02/22 22:30 U Epithel Cells (Auto) 5-10 /lpf (0-5) H 12/02/22 22:30 Urine Bacteria (Auto) Negative (Negative) 12/02/22 22:30 SARS-CoV-2, RNA, NAAT NEGATIVE (NEGATIVE) 12/03/22 01:35 Impressions Lumbar Spine MRI 12/03/22 01:31 Exam(s): MRI L SPINE Without Contrast EXAM: MR Lumbar Spine Without Intravenous Contrast CLINICAL HISTORY: Reason for exam: low back pain, left sciatica, elev. WBC. TECHNIQUE: Magnetic resonance images of the lumbar spine without intravenous contrast in multiple planes. COMPARISON: 07/12/2022. FINDINGS: Vertebrae: There is mild anterolisthesis of L5 on S1 (6 mm). Interspaces: Multilevel disc desiccation seen, more severe from L3-S1. Spinal cord: The spinal cord terminates at mid L1 level with normal signal in the visualized portion. Soft tissues: Unremarkable. DISCS/SPINAL CANAL/NEURAL FORAMINA: L1-L2: Disc desiccation. Mild diffuse posterior disc bulge. No spinal stenosis or neuroforaminal encroachment. L2-L3: Disc desiccation. Mild diffuse posterior disc bulge. No spinal stenosis or neuroforaminal encroachment. L3-L4: Mild hypertrophy of ligamentum flavum and facet complex. Disc desiccation. Mild diffuse posterior disc bulge. No spinal stenosis or neuroforaminal encroachment. L4-L5: Broad-based central disc protrusion contouring the anterior aspect of the thecal sac. Minimal AP diameter of the thecal sac measures 7.9 mm. No significant spinal stenosis. No neuroforaminal impingement. L5-S1: Mild anterolisthesis as described. Nonspecific hypertrophy of the bilateral facets. No spinal stenosis. Other findings: There is multilevel narrowing of disc height consistent with disc degenerative disease. IMPRESSION: 1. Central disc protrusion at L4-L5 with mild narrowing of the thecal sac. No severe neuroforaminal encroachment noted. 2. Underlying disc degenerative disease as described with no acute fracture. 3. Mild, grade 1 anterolisthesis of L5 on S1. Electronically signed by: Radah Rodríguez MD 12/03/22 02:27 AM Code Status & VTE Plan Code Status Full code VTE Prophylaxis Plan VTE Prophylaxis will be ordered: Yes PG Care Time/CCT Total # of Minutes Spent Total Time Spent with Patient: Total time spent is greater than 50% in coordination of care (as documented) at patient's floor/unit and/or counseling patient: Coding Level of Care Code 25472 INT INP/OBS CARE 3/75MIN Diagnoses Acute left-sided back pain with sciatica M54.42 Disc degeneration, lumbosacral M51.37 Low back pain radiating to left lower extremity M54.50; M79.605 Spondylolysis, lumbosacral M43.07 Spondylolisthesis at L5-S1 level M43.17 Hyperlipidemia E78.5 Hypertension I10 Diabetes mellitus, type 2 E11.9 Anxiety F41.9
[2022-12-03] MEDS ORDERED: CARBOHYDRATES FOR HYPOGLYCEMIA PO PRN (05:21)
[2022-12-03] MEDS ORDERED: GLUCOSE 40% GEL 15 GM TUBE PO PRN (05:21)
[2022-12-03] MEDS ORDERED: GLUCOSE 10 TAB/TUBE PO PRN (05:21)
[2022-12-03] MEDS ORDERED: GLUCAGON FOR INJ 1 MG VIAL SQ PRN (05:21)
[2022-12-03] MEDS ORDERED: LORazepam 1 MG TAB PO PRN (05:21)
[2022-12-03] MEDS ORDERED: DEXTROSE 50% 50 ML SYRINGE IV PRN (05:21)
[2022-12-03] MEDS ORDERED: ACETAMINOPHEN 325 MG TAB PO PRN (05:21)
[2022-12-03] MEDS ORDERED: tiZANidine HCL 4 MG TABLET PO PRN (05:21)
[2022-12-03] MEDS ORDERED: HYDROCODONE/ACETAMOPHEN 5/325MG TAB PO PRN (05:21)
[2022-12-03] MEDS: INSULIN ASPART PER UNIT CHARGE SC SCH ×3 (06:36→17:29)
[2022-12-03] MEDS: ONDANSETRON INJ 2 MG/ML 2 ML VIAL IV PRN ×3 (07:50→22:14)
[2022-12-03] MEDS ORDERED: oxyCODONE HCL IR 5 MG TAB (IMMEDIATE RELEASE) PO PRN (08:23)
--- NOTE | 2022-12-03 08:24 | Hospitalist Progress Note ---
Date of Service December 03, 2022 Assessment & Plan (1) Acute left-sided back pain with sciatica: Plan: acute back pain, undetermied significance Lumbar degenerative disc disease/L5-S1 herniated disc/left lower extremity radiculopathy- Given dexamethasone 10 mg IV, continues on 4 mg IV every 8 hours Acetaminophen 650 mg p.o. every 6 hours as needed for mild pain or fever oxycodone for moderate pain Morphine sulfate 4 mg IV every 4 hours as needed for severe pain Continue tizanidine 4 mg p.o. twice daily as needed Lumbar spine MRI from 12/03/2022, central disc protrusion at L4-5 with mild narrowing of the thecal sac no severe neuroforaminal encroachment is noted. Underlying disc degeneration seen without acute fracture grade I anterolisthesis of L5 on S1 Consult orthopedic spine surgery Dr. Herndon (2) Diabetes mellitus, type 2: Plan: chronic and stable Diabetes mellitus- Hold metformin and Jardiance Placed on Accu-Cheks with NovoLog SSI (3) Hypertension: Plan: chronic and stable Hypertension- Continue atenolol, hold lisinopril (4) Hyperlipidemia: Plan: chronic and stable Hyperlipidemia- Hold atorvastatin and fenofibrate Plan Glaucoma- Continue usual eyedrops Admission and Anticipated Discharge Date Admission Date: December 03, 2022 Subjective Patient's pain is now 2-3 out of 10. She did receive pain medications. She has no focal neurological deficits. Pain has been escalating and worsening over the last few days as an outpatient Physical Exam Physical Exam: Patient awake alert appropriate Cardiac exam is regular without murmurs Lungs are clear without wheezes or crackles Abdomen is NABS and soft Left lower extremity is without neurological deficit she has good distal pulses and intact capillary refill Results & Data Results & Data Vital Signs (Past 12 Hours) Vital Signs Temp Pulse Resp BP Pulse Ox O2 Del Method 12/03/22 07:32 97.9 F 73 18 130/72 98 Room Air 12/03/22 05:10 97.5 F L 62 18 126/84 98 Room Air 12/03/22 05:15 Room Air 12/03/22 04:56 129/78 12/03/22 03:30 16 112/68 98 Room Air 12/02/22 21:00 159/95 H 12/02/22 21:01 99 Room Air 12/02/22 21:00 83 20 99 Room Air Laboratory Results Reviewed CBC Reviewed PRP PG Care Time/CCT Total # of Minutes Spent Total Time Spent with Patient: Total time spent is greater than 50% in coordination of care (as documented) at patient's floor/unit and/or counseling patient: Coding Level of Care Code 58057 SUB INP/OBS CARE 2/35MIN Diagnoses Acute left-sided back pain with sciatica M54.42 Diabetes mellitus, type 2 E11.9 Hypertension I10 Hyperlipidemia E78.5
[2022-12-03] MEDS: HEPARIN SOD 5,000 UNIT/0.5 ML VIAL SQ SCH ×2 (08:33→21:25)
[2022-12-03] MEDS: DORZOLAMIDE/TIMOLOL 22.3/6.8MG/ML 10 ML BTL OP SCH ×2 (08:34→21:33)
[2022-12-03] MEDS: LIDOCAINE 5% 1 PATCH TD SCH (09:58)
[2022-12-03] MEDS: dexAMETHasone 4 MG in SYRINGE 0 ML IV SCH ×2 (09:58→17:36)
[2022-12-03] MEDS: ACETAMINOPHEN 500 MG TAB PO SCH ×3 (09:58→21:27)
--- NOTE | 2022-12-03 10:32 | Orthopedic Consultation ---
Date of Consultation December 03, 2022 Assessment & Plan (1) Spinal stenosis of lumbar region with radiculopathy: Assessment lumbar spondylolisthesis with foraminal stenosis and radiculopathy L5-S1. Plan at this time the patient had marked decline in status. She has known spondylolysis with spondylolisthesis L5-S1 and instability with severe bilateral neuroforaminal disease. This is creating significant pressure on the traversing exiting nerve roots and subsequent radiculopathy. She failed extensive course of nonoperative care has recently undergone physical therapy and injections without any improvement. In light of her decline in status narcotic utilization and overall inability to function am recommending we perform her surgery on an urgent basis. It would require lumbar decompression fusion L5-S1 possible L4-L5. Risk benefits pros cons alternatives were outlined detail. Have made her n.p.o. after midnight. History of Present Illness Reason for Consultation: Back and left leg pain Attending Physician: John Alcantara MD History of Present Illness This is a very pleasant 57-year-old female well-known to me the presents with marked decline in status over the past several days. She does have a history since June 2022 of worsening chronic persistent left sciatica rating into the buttock posterior lateral thigh and into the foot. We had been planning on surgery later this summer but unfortunately over the past 3 to 4 days she has had a significant increase in pain. She has been unable to ambulate it awaken her from sleep. She is now hospitalized requiring IV narcotics to control her pain. Right lower extremity at this point is asymptomatic. Pain does radiate into the groin and perineal area on the left. Allergies Allergy/AdvReac Type Severity Reaction Status Date / Time No Known Allergies Allergy Verified 12/02/22 20:28 Home Medications Medication Instructions Recorded Confirmed Type atenolol 25 mg tablet 25 mg PO QPM 06/06/19 12/02/22 History atorvastatin 20 mg tablet (Lipitor) 20 mg PO HS 06/06/19 12/02/22 History cetirizine 10 mg tablet (Zyrtec) 10 mg PO QAM 06/06/19 12/02/22 History fenofibrate nanocrystallized 145 145 mg PO HS 06/06/19 12/02/22 History mg tablet lorazepam 1 mg tablet (Ativan) 1 mg PO HS PRN Anxiety 06/06/19 12/02/22 History metformin 500 mg tablet 500 mg PO BID 06/06/19 12/02/22 History travoprost 0.004 % eye drops 1 drp OPB HS 06/06/19 12/02/22 History (Travatan Z) dorzolamide 22.3 mg-timolol 6.8 1 drp ophthalmic (eye) [facility] 11/02/20 12/02/22 History mg/mL eye drops lisinopril 20 mg tablet 20 mg PO QAM 11/02/20 12/02/22 History tizanidine 4 mg tablet 4 mg PO BID PRN muscle spasticity 10/06/22 12/02/22 Rx #30 tabs acetaminophen 500 mg tablet 1,000 mg PO DIRECTED PRN 12/02/22 12/02/22 History (Tylenol Extra Strength) PAIN/FEVER docusate sodium 100 mg capsule 100 mg PO DAILY 12/02/22 12/02/22 History (Colace) empagliflozin 25 mg tablet 25 mg PO QAM 12/02/22 12/02/22 History (Jardiance) ibuprofen 200 mg tablet 400 mg PO DIRECTED PRN 12/02/22 12/02/22 History PAIN/FEVER Patient History Medical History (Updated 12/03/22 @ 10:30 by Samir Herndon DO) Anxiety Diabetes mellitus, type 2 Elevated platelet count FOLLOWS HEMATOLOGY (BEING MONITORED) Glaucoma Hx of colonic polyps Hyperlipidemia Hypertension Surgical History History of cardiac cath 7 YRS AGO @ [place] > FOR CHEST PAIN > NO STENTS History of section X 1 History of cholecystectomy History of colonoscopy History of dilatation and curettage History of endoscopic sinus surgery History of tooth extraction Family History Grandmother (Maternal) Diabetes Family history of diabetes mellitus Mother Family history of diabetes mellitus Other No family history of adverse response to anesthesia Social History Smoking Status: Current every day smoker Tobacco Type: Cigarettes Cigarettes Per Day: 10; Second Hand Exposure: Yes (IN THE PAST); Do You Dip or Chew Tobacco: No; Hx Alcohol Use: Yes Hx Substance Use: No Preferred Language: Slovenian Communication Ability: Effective Thread Singer Required: No Beliefs That Will Affect Care: None Current Living Situation: Family Current Living Situation Comment: Lives with and step son Feels Safe at Home: Yes Assistive Devices: Glasses Physical Exam Physical Exam: On exam the patient is obvious distress. She is able to get out of bed on her own. She is more comfortable shifting positions secondary to the radicular pain. Bench exam reveals reasonable plus 5 out of 5 plantarflexion dorsiflexion quadriceps. Sensory is intact. Deep tendon reflexes diminished. Marked tension signs straight leg raising on the left. Results & Data Vital Signs (Past 12 Hours) Vital Signs Temp Pulse Resp BP Pulse Ox O2 Del Method 12/03/22 07:32 36.6 C 73 18 130/72 98 Room Air 12/03/22 05:10 36.4 C L 62 18 126/84 98 Room Air 12/03/22 05:15 Room Air 12/03/22 04:56 129/78 12/03/22 03:30 16 112/68 98 Room Air
[2022-12-03] MEDS: CETIRIZINE HCL 10 MG TABLET PO SCH (11:00)
[2022-12-03] MEDS ORDERED: PROMETHAZINE HCL 12.5 MG in SODIUM CHLORIDE 0.9% 50 ML IV PRN (11:34)
--- NOTE | 2022-12-03 13:26 | XRay Report ---
XR lumbar spine flex/ext only CLINICAL HISTORY: back and leg pain TECHNIQUE: 5 views of the lumbar spine were obtained. Comparison: None available at the time of this dictation. FINDINGS: There is no evidence of an acute fracture. Degenerative changes are seen in the lumbar spine. Alignme nt is unremarkable and no abnormalities are seen with flexion or extension. No soft tissue abnormalit y is seen. IMPRESSION: No acute fracture or subluxation. ACT 112: Negative or not required by law. Electronically signed by: Edd Alejo M.D. 12/03/2022 1:24 PM
--- NOTE | 2022-12-03 15:06 | XRay Report ---
XR chest 1V portable CLINICAL HISTORY: pre op TECHNIQUE: Single frontal radiograph of the chest was obtained. Comparison: Comparison is made to chest radiograph 04/12/2022 FINDINGS: No lines and tubes are seen. The cardiomediastinal silhouette is normal. The lungs are clear. No evid ence of pleural effusion or pneumothorax. IMPRESSION: No acute chest disease. ACT 112: Negative or not required by law. Electronically signed by: Edd Alejo M.D. 12/03/2022 3:04 PM
[2022-12-03] MEDS ORDERED: MELATONIN 3 MG TAB PO PRN (21:15)
[2022-12-03] MEDS: FAMOTIDINE 20 MG TAB PO SCH (21:29)
[2022-12-03] MEDS: ATENOLOL 25 MG TABLET PO SCH (21:32)
[2022-12-03] MEDS: ATORVASTATIN 20 MG TAB PO SCH (21:32)
[2022-12-03] MEDS: TRAVOPROST Z 0.004% OPH SOLN 2.5 ML BTL OPB SCH (21:33)
[2022-12-04] MEDS: INSULIN ASPART PER UNIT CHARGE SC SCH ×5 (00:33→20:44)
[2022-12-04] MEDS: dexAMETHasone 4 MG in SYRINGE 0 ML IV SCH ×3 (01:49→18:43)
[2022-12-04] MEDS: MoRPHine SULFATE 4 MG/ML 1 ML CARP\\VIAL IV PRN ×5 (05:15→21:25)
--- NOTE | 2022-12-04 06:36 | Electrocardiogram Report ---
Test Reason : Blood Pressure : / mmHG Vent. Rate : 058 BPM Atrial Rate : 058 BPM P-R Int : 152 ms QRS Dur : 084 ms QT Int : 382 ms P-R-T Axes : 021 008 074 degrees QTc Int : 374 ms Sinus bradycardia with sinus arrhythmia Nonspecific T wave abnormality Abnormal ECG When compared with ECG of 12-APR-2022 14:21, No significant change was found Confirmed by Jesus Loza ([id number]) on 12/04/2022 6:35:53 AM Referred By: REFERRED SELF Confirmed By:Jesus Loza
--- NOTE | 2022-12-04 07:42 | History & Physical Bridge Note ---
Date of Service December 04, 2022 History & Physical Bridge Note I have examined the patient, reviewed the History & Physical and in the interval since the performance of the History & Physical I have noted the following changes of clinical significance: Patient continues to have severe left leg radiculopathy related to spondylolisthesis with pars defect and severe bilateral neuroforaminal disease L5-S1. She is currently requiring IV narcotics to manage her pain and has been able to work for the past several days. I am recommending emergent decompression fusion to address her spinal pathology requiring an L5-S1 decompression and fusion possible L4-L5.
[2022-12-04 07:43] LABS: Basophils # (auto) 0.04 K/uL (0-0.2); Basophils % (auto) 0.3 %; Eosinophils # (auto) 0.01 K/uL (0-0.50); Eosinophils % (auto) 0.1 %; Hematocrit (blood only) 42.4 % (37.0-47.0); Hemoglobin 14.2 g/dl (12.0-16.0); Immature Granulocytes # (auto) 0.06 K/uL (0.01-0.20); Immature Granulocytes % (auto) 0.5 %; Lymphocytes # (auto) 2.41 K/uL (1.2-3.4); Lymphocytes % (auto) 19.1 %; Mean Corpuscular Hemoglobin 29.8 pg (25.0-34.0); Mean Corpuscular Hgb Conc 33.5 g/dL (32.0-36.0); Mean Corpuscular Volume 89.1 fL (80.0-100.0); Mean Platelet Volume 9.4 fL (9.4-12.4); Monocytes # (auto) 0.62 K/uL (0.11-0.59); Monocytes % (auto) 4.9 %; Neutrophils # (auto) 9.45 K/uL (1.40-6.50); Neutrophils % (auto) 75.1 %; Platelet Count 441 K/uL (130-400); RDW Coefficient of Variation 14.2 % (11.5-14.5); RDW Standard Deviation 46.3 fL (36.4-46.3); Red Blood Count 4.76 M/uL (4.20-5.40); White Blood Count 12.59 K/ul (4.8-10.8)
--- NOTE | 2022-12-04 07:51 | Hospitalist Progress Note ---
Date of Service December 04, 2022 Assessment & Plan (1) Acute left-sided back pain with sciatica: Plan: acute back pain, undetermied significance Lumbar degenerative disc disease/L5-S1 herniated disc/left lower extremity radiculopathy- Given dexamethasone 10 mg IV, continues on 4 mg IV every 8 hours Acetaminophen 650 mg p.o. every 6 hours as needed for mild pain or fever oxycodone for moderate pain Morphine sulfate 4 mg IV every 4 hours as needed for severe pain Continue tizanidine 4 mg p.o. twice daily as needed Lumbar spine MRI from 12/03/2022, central disc protrusion at L4-5 with mild narrowing of the thecal sac no severe neuroforaminal encroachment is noted. Underlying disc degeneration seen without acute fracture grade I anterolisthesis of L5 on S1 Consult orthopedic spine surgery Dr. Herndon, performed lumbar decompression fusion L4 S1 on 12/04/2022 (2) Diabetes mellitus, type 2: Plan: chronic and stable Diabetes mellitus- Hold metformin and Jardiance Placed on Accu-Cheks with NovoLog SSI chronic care glucoses reviewed and acceptable (3) Hypertension: Plan: chronic and stable Hypertension- Continue atenolol, hold lisinopril (4) Hyperlipidemia: Plan: chronic and stable Hyperlipidemia- Hold atorvastatin and fenofibrate Plan Glaucoma- Continue usual eyedrops Admission and Anticipated Discharge Date Admission Date: December 03, 2022 Subjective Patient seen preoperatively still having discomfort especially when ambulating or bearing weight operative plan today for 12/04/2022 did review his chest x-ray and EKG preoperatively without concerns Physical Exam Physical Exam: Awake alert appropriate no respiratory or pulmonary distress at this time no signs or symptoms of unstable angina or heart failure Results & Data Results & Data Vital Signs (Past 12 Hours) Vital Signs Temp Pulse Resp BP Pulse Ox O2 Del Method 12/03/22 21:32 97.7 F 89 16 142/91 H 94 Room Air Laboratory Results Reviewed CBC Reviewed PRP Personally reviewed chest x-ray and EKG PG Care Time/CCT Total # of Minutes Spent Total Time Spent with Patient: Total time spent is greater than 50% in coordination of care (as documented) at patient's floor/unit and/or counseling patient: Coding Level of Care Code 58845 SUB INP/OBS CARE 2/35MIN Diagnoses Acute left-sided back pain with sciatica M54.42 Diabetes mellitus, type 2 E11.9 Hypertension I10 Hyperlipidemia E78.5
[2022-12-04 07:53] LABS: Albumin Globulin Ratio 1.7 (0.9-2); Albumin Level 4.4 gm/dl (3.4-5.0); BUN Creatinine Ratio 27.2 (10-20); Bilirubin,Total 0.4 mg/dl (0.2-1.0); Calcium 9.8 mg/dl (8.6-10.3); Creatinine Clr Calc Pharmacy 73.1 ml/min; Est GFR (African American) 93.4 ml/min; Est GFR (Non-African American) 80.6 ml/min; Globulin 2.6 gm/dl (2.5-4.0); Potassium 4.4 mmol/L (3.5-5.1)
[2022-12-04] MEDS: HEPARIN SOD 5,000 UNIT/0.5 ML VIAL SQ SCH ×2 (08:15→20:33)
[2022-12-04] MEDS: CETIRIZINE HCL 10 MG TABLET PO SCH (08:16)
[2022-12-04] MEDS: LIDOCAINE 5% 1 PATCH TD SCH (08:16)
[2022-12-04] MEDS: ACETAMINOPHEN 500 MG TAB PO SCH ×3 (08:16→20:33)
[2022-12-04] MEDS: FAMOTIDINE 20 MG TAB PO SCH ×2 (08:16→20:33)
[2022-12-04] MEDS: DORZOLAMIDE/TIMOLOL 22.3/6.8MG/ML 10 ML BTL OP SCH ×2 (08:17→20:33)
[2022-12-04 08:29] LABS: Estimated Average Glucose 151 mg/dl; Hemoglobin A1C 6.9 % (4.5-5.6)
--- NOTE | 2022-12-04 10:38 | Anesthesiology Consultation ---
Date of Service December 04, 2022 Assessment & Plan (1) Encounter for pre-operative examination: Chart Review Chart Review: Acceptable Risk for Surgery and Patient NOT seen in Pre Admission Testing Consults Requested none History Surgery Operation Date: 12/04/22 09:40 Proposed Procedures p Lumbar Decompression Possible Fusion L5-S1, Possible L4-L5 - Samir Herndon DO Height/Weight Height: 5 ft 1 in Weight: 79.4 kg Allergies Allergy/AdvReac Type Severity Reaction Status Date / Time No Known Allergies Allergy Verified 12/02/22 20:28 Medications Home Medications Medication Instructions Recorded Confirmed Last Taken atenolol 25 mg tablet 25 mg PO QPM 06/06/19 12/02/22 12/01/22 atorvastatin 20 mg tablet (Lipitor) 20 mg PO HS 06/06/19 12/02/22 12/01/22 cetirizine 10 mg tablet (Zyrtec) 10 mg PO QAM 06/06/19 12/02/22 12/02/22 fenofibrate nanocrystallized 145 145 mg PO HS 06/06/19 12/02/22 12/01/22 mg tablet lorazepam 1 mg tablet (Ativan) 1 mg PO HS PRN Anxiety 06/06/19 12/02/22 11/09/20 22:00 metformin 500 mg tablet 500 mg PO BID 06/06/19 12/02/22 12/02/22 08:00 travoprost 0.004 % eye drops 1 drp OPB HS 06/06/19 12/02/22 12/01/22 (Travatan Z) dorzolamide 22.3 mg-timolol 6.8 1 drp ophthalmic (eye) [facility] 11/02/20 12/02/22 12/02/22 08:00 mg/mL eye drops lisinopril 20 mg tablet 20 mg PO QAM 11/02/20 12/02/22 12/02/22 tizanidine 4 mg tablet 4 mg PO BID PRN muscle spasticity 10/06/22 12/02/22 Unkno wn #30 tabs acetaminophen 500 mg tablet 1,000 mg PO DIRECTED PRN 12/02/22 12/02/22 Unknown (Tylenol Extra Strength) PAIN/FEVER docusate sodium 100 mg capsule 100 mg PO DAILY 12/02/22 12/02/22 12/02/22 (Colace) empagliflozin 25 mg tablet 25 mg PO QAM 12/02/22 12/02/22 12/02/22 (Jardiance) ibuprofen 200 mg tablet 400 mg PO DIRECTED PRN 12/02/22 12/02/22 Unknown PAIN/FEVER Active Medications Generic Name Dose Route Start Last Admin Trade Name Freq PRN Reason Stop Dose Admin Acetaminophen 1,000 mg 12/03/22 09:00 12/04/22 08:16 Acetaminophen 500 Mg Tab PO 01/02/23 08:59 Not Given TID RUTH Atenolol 25 mg 12/03/22 21:00 12/03/22 21:32 Atenolol 25 Mg Tablet PO 01/02/23 20:59 25 mg QPM RUTH Administration Atorvastatin Calcium 20 mg 12/03/22 21:00 12/03/22 21:32 Atorvastatin 20 Mg Tab PO 01/02/23 20:59 20 mg HS RUTH Administration Cetirizine HCl 10 mg 12/03/22 09:00 12/04/22 08:16 Cetirizine Hcl 10 Mg Tablet PO 01/02/23 08:59 Not Given QAM RUTH Dorzolamide/Timolol 1 drops 12/03/22 09:00 12/04/22 08:17 Dorzolamide/Timolol 22.3/6.8mg/Ml 10 Ml Btl OP 01/02/23 08:59 1 drops BID RUTH Administration Famotidine 20 mg 12/03/22 21:00 12/04/22 08:16 Famotidine 20 Mg Tab PO 01/02/23 20:59 Not Given BID RUTH Heparin Sodium (Porcine) 5,000 units 12/03/22 09:00 12/04/22 08:15 Heparin Sod 5,000 Unit/0.5 Ml Vial SQ 01/02/23 08:59 Not Given Q12 RUTH Dexamethasone 4 mg/ Syringe 1 mls @ 1 mls/min 12/03/22 10:00 12/04/22 10:24 IV 01/02/23 09:59 1 mls/min Q8H RUTH Administration Promethazine HCl 12.5 mg/ 50.5 mls @ 202 mls/hr 12/03/22 11:34 12/03/22 12:05 Sodium Chloride IV 01/02/23 11:33 Infused Q6H PRN Infusion Nausea And Vomiting Insulin Aspart 0 units 12/03/22 06:15 12/04/22 05:51 Insulin Aspart Per Unit Charge SC 01/02/23 06:14 Not Given Q6 [facility] Lidocaine 1 patch 12/03/22 09:00 12/04/22 08:16 Lidocaine 5% 1 Patch TD 01/02/23 08:59 Not Given QAM [facility] Miscellaneous 1 each 12/03/22 21:00 12/03/22 21:29 Remove Lidoderm Patch N/A 01/02/23 20:59 Not Given DAILY@2100 [facility] Morphine Sulfate 4 mg 12/03/22 05:21 12/04/22 08:10 Morphine Sulfate 4 Mg/Ml 1 Ml Carp\Vial IV 12/17/22 05:20 4 mg Q3H PRN Administration Severe Pain (Scale 7, 8, 9,10) Ondansetron HCl 4 mg 12/03/22 05:21 12/03/22 22:14 Ondansetron Inj 2 Mg/Ml 2 Ml Vial IV 01/02/23 05:20 4 mg Q6H PRN Administration Nausea Travoprost 1 drops 12/03/22 21:00 12/03/22 21:33 Travoprost Z 0.004% Oph Soln 2.5 Ml Btl OPB 01/02/23 20:59 1 drops HS RUTH Administration Past Medical History Medical History Anxiety Diabetes mellitus, type 2 Elevated platelet count FOLLOWS HEMATOLOGY (BEING MONITORED) Glaucoma Hx of colonic polyps Hyperlipidemia Hypertension Past Family History Family History Grandmother (Maternal) Diabetes Family history of diabetes mellitus Mother Family history of diabetes mellitus Other No family history of adverse response to anesthesia Past Surgical History Surgical History History of cardiac cath 7 YRS AGO @ [place] > FOR CHEST PAIN > NO STENTS History of section X 1 History of cholecystectomy History of colonoscopy History of dilatation and curettage History of endoscopic sinus surgery History of tooth extraction Social History Smoking Status: Current every day smoker tobacco type: cigarettes Smoking cigarettes per day: 10 Do You Dip or Chew Tobacco: No Smoking End Date: 11/27/2022 Hx Alcohol Use: Yes alcohol intake frequency: holidays/special occasions only Hx Substance Use: No substance use type: does not use Physical Exam Vital Signs Last Vital Signs Temp 98.2 F 12/04/22 07:45 Pulse 50 L 12/04/22 07:45 Resp 16 12/04/22 07:45 BP 115/70 12/04/22 07:45 Pulse Ox 97 12/04/22 07:45 O2 Del Method Room Air 12/04/22 07:45 Testing Laboratory Results 12/04/22 06:52 12/04/22 06:52 Hemoglobin A1c 6.9 % (4.5-5.6) H 12/04/22 06:52 Urine Color Yellow 12/02/22 22:30 Urine Appearance Clear (Clear) 12/02/22 22:30 Urine pH 7.0 (4.5-7.5) 12/02/22 22:30 Ur Specific [place] 1.007 (1.000-1.030) 12/02/22 22:30 Urine Protein Negative (Negative) 12/02/22 22:30 Urine Glucose (UA) 2+ (Negative) H 12/02/22 22:30 Urine Ketones Negative (Negative) 12/02/22 22:30 Urine Nitrite Negative (Negative) 12/02/22 22:30 Ur Leukocyte Esterase Trace (Negative) H 12/02/22 22:30 Urine WBC (Auto) 1-5 /hpf (0-5) 12/02/22 22:30 Urine RBC (Auto) 0-4 /hpf (0-4) 12/02/22 22:30 U Hyaline Cast (Auto) 0 /lpf (0-5) 12/02/22 22:30 U Epithel Cells (Auto) 5-10 /lpf (0-5) H 12/02/22 22:30 Urine Bacteria (Auto) Negative (Negative) 12/02/22 22:30 12/04/22 12/04/22 05:48 00:20 POC Glucose 113 H 141 H Electrocardiogram Date: 12/03/22 Findings: + NSR @ Sinus bradycardia with sinus arrhythmia Nonspecific T wave abnormality Abnormal ECG Chest X-Ray Date: 12/03/22 Findings: + NAD
[2022-12-04] MEDS: LACTATED RINGER'S 1,000 ML IV SCH (11:54)
[2022-12-04] MEDS ORDERED: ceFAZolin 2000MG 2,000 MG/15 ML SYR IV ONE (13:00)
[2022-12-04] MEDS ORDERED: ceFAZolin 2,000 MG/15 ML IV PUSH IV ONE (13:07)
[2022-12-04] MEDS ORDERED: BUPIVACAINE/EPINEPHRINE 0.25% 1:200,000 30 ML VIAL ONE (13:17)
[2022-12-04] MEDS ORDERED: MIDAZOLAM HCL 1 MG/ML 2ML VIAL ONE (13:26)
[2022-12-04] MEDS ORDERED: fentaNYL citrate PF 100 MCG/2 ML VIAL ONE ×2 (13:26→15:16)
[2022-12-04] MEDS ORDERED: ATROPINE SULFATE 0.1 MG/ML 10ML SYR IV PRN (13:34)
[2022-12-04] MEDS ORDERED: PROMETHAZINE HCL 6.25 MG in SODIUM CHLORIDE 0.9% 50 ML IV PRN (13:34)
[2022-12-04] MEDS ORDERED: ONDANSETRON INJ 2 MG/ML 2 ML VIAL IV PRN (13:34)
[2022-12-04] MEDS ORDERED: FLOSEAL HEMOSTATIC MATRIX 10ML TOP ONE (14:26)
[2022-12-04] MEDS ORDERED: PROPOFOL IV EMULSION 10 MG/ML 20 ML VIAL IV ONE (15:11)
[2022-12-04] MEDS ORDERED: GLYCOPYRROLATE 0.2 MG/ML VIAL ONE (15:11)
[2022-12-04] MEDS ORDERED: ROCURONIUM BROMIDE 10 MG/ML 5 ML VIAL IV ONE (15:11)
[2022-12-04] MEDS ORDERED: SUGAMMADEX SODIUM 200 MG/2 ML VIAL IV ONE (15:43)
--- NOTE | 2022-12-04 15:47 | Operative Report ---
Post Operative Report Pre & Post Diagnosis Operation Date: 12/04/22 09:40 Pre-Op Diagnosis: Lumbar spondylolisthesis with spondylolysis L5-S1 with neuroforaminal stenosis Foraminal disc herniation L5-S1 Post-Op Diagnosis: Same I identified the patient and participated in the time-out.: Yes Procedure Operation Date: 12/04/22 09:40 Actual Procedures #1 lumbar decompression bilaterally facetectomies and foraminotomies L4-L5 L5- S1. #2 posterior spinal fusion L4-L5 L5-S1. #3 placement posterior instrumentation L4-S1. #4 interbody fusion L5-S1. #5 placement of Spira 11 x 26 mm cage at L5-S1. #6 placement locally harvested morselized autograft in the posterior gutters. #7 placement of I factor combined the test interbody space and posterior gutters. Surgeon Samir Herndon DO Chief Development Officer Ruchi Pineda Estimated Blood Loss 150 Findings Consistent with Post-Op Diagnosis Specimens None Indications This is a 57-year-old female who presents with marked decline in status with severe left leg radiculopathy. She is here for emergent decompression fusion. Description of Procedure Patient was met with identified informed consent obtained. Patient was then taken to the operative suite underwent ablation placed in a prone position the Jalil table top Surjit frame. All bony promises well-padded eyes inspected to ensure no external pressure placed upon the. This point lumbar spine was prepped and draped in a sterile fashion. Sharp dissection with the assistance of Bovie cautery form down to and exposing the lamina transverse processes of L5 and the sacral ala bilaterally. Obvious bilateral pars defect was identified. A complete laminectomy of L5 was performed and partial laminectomy of L4 was performed including the facetectomies and foraminotomies. Pedicle screws then placed in L5 and S1 levels bilaterally with the assistance of fluoroscopy however the pedicle screw at L5 on the left was compromised and unable to obtain adequate fixation subsequently I extended the exposure to L4 transverse processes and placed pedicle screws at L4 bilaterally with assistance of fluoroscopy. By way of a transfemoral approach and left complete discectomy of L5-S1 was performed endplates curetted to subcortical bleeding bone and a 11 x 26 mm Spira cage with I factor tapped in position. Proper size rods were then placed locked into position bilaterally. Including a cross-link. The transverse processes of L4-L5 and the sacral ala burred to subcortically bone. I factor amount of the test and locally harvested morselized autograft was then placed in the posterior gutters. 15 round CHRISTOPHER drain inserted. The incision was then closed with 1 Vicryl the fascia 2-0 Vicryl subcutaneously and 4 Monocryl for final skin closure. Steri-Strips and sterile dressing placed. Patient awakened taken to PACU stable condition. Please note spinal cord monitoring was utilized at the procedure no changes noted. Lastly Ruchi Pineda was present at the entire surgery involved the patient positioning complex portions of the surgery and final skin closure. I attest to the content of the Intraoperative Record and any orders documented therein. Any exceptions are noted below.
--- NOTE | 2022-12-04 16:12 | Fluoroscopy Report ---
FL lumbar spine 2-3V CLINICAL HISTORY: L5-S1 POSS L4-5 DFI TECHNIQUE: 2 views were obtained with the C-arm in the OR with the above procedure. Total fluoroscopy time was 51.9 seconds. Radiation dose was 39.28 mGy. Comparison: Comparison is made to lumbar spine radiographs 12/03/2022 FINDINGS/IMPRESSION: Intraoperative images were obtained of L4-S1 discectomy and fusion Please correlate with intraoperative fluoroscopy and operative report. ACT 112: Negative or not required by law. Electronically signed by: Edd Alejo M.D. 12/04/2022 4:10 PM
[2022-12-04] MEDS: HYDROmorphone INJ 1 MG/ML SYRINGE IV PRN ×8 (16:13→17:01)
[2022-12-04] MEDS: LORazepam 2 MG/1 ML VIAL IV PRN (18:43)
[2022-12-04] MEDS ORDERED: Nursing to Pharmacy Communication SCH (18:45)
[2022-12-04] MEDS ORDERED: SODIUM CHLORIDE 0.9% 1000ML 1,000 ML IV SCH (19:00)
--- NOTE | 2022-12-04 19:22 | Anesthesiology Progress Note ---
Date of Service December 04, 2022 Anesthesia Post Procedure Vital Signs Vital Signs: Temp Pulse Pulse Resp BP BP Pulse Ox 12/04/22 18:09 36.6 C 80 16 136/80 97 12/04/22 17:50 80 20 141/84 H 97 12/04/22 17:40 78 20 151/75 H 97 12/04/22 17:30 75 20 149/72 H 96 12/04/22 17:20 74 18 154/85 H 98 12/04/22 17:10 80 18 151/88 H 98 12/04/22 17:00 82 18 152/93 H 98 12/04/22 16:50 84 18 147/86 H 100 12/04/22 16:40 79 18 156/79 H 99 12/04/22 16:30 89 20 137/90 99 12/04/22 16:20 94 H 16 148/47 H 100 12/04/22 16:10 36.1 C L 101 H 15 144/69 H 100 12/04/22 11:25 36.6 C 53 L 18 160/76 H 98 12/04/22 07:45 36.8 C 50 L 16 115/70 97 12/03/22 21:32 36.5 C 89 16 142/91 H 94 O2 Del Method O2 Flow Rate 12/04/22 18:09 Room Air 12/04/22 17:50 Nasal Cannula 2 12/04/22 17:40 Nasal Cannula 2 12/04/22 17:30 Nasal Cannula 2 12/04/22 17:20 Nasal Cannula 2 12/04/22 17:10 Nasal Cannula 2 12/04/22 17:00 Nasal Cannula 2 12/04/22 16:50 Nasal Cannula 2 12/04/22 16:40 Nasal Cannula 2 12/04/22 16:30 Nasal Cannula 2 12/04/22 16:20 Oxymask 6 12/04/22 16:10 Oxymask 6 12/04/22 11:25 Room Air 12/04/22 07:45 Room Air 12/03/22 21:32 Room Air Pain Intensity Back: Pain Intensity: 10 Transfer of Care Handoff Completed per policy Notes Mental Status: alert / awake / arousable Patient Amnestic to Procedure: Yes Nausea / Vomiting: adequately controlled Pain: adequately controlled Airway Patency, RR, SpO2: stable & adequate BP & HR: stable & adequate Hydration State: stable & adequate Anesthetic Complications: no major complications apparent
[2022-12-04] MEDS: tiZANidine HCL 4 MG TABLET PO PRN (19:41)
[2022-12-04] MEDS: ATORVASTATIN 20 MG TAB PO SCH (20:33)
[2022-12-04] MEDS: ATENOLOL 25 MG TABLET PO SCH (20:33)
[2022-12-04] MEDS: TRAVOPROST Z 0.004% OPH SOLN 2.5 ML BTL OPB SCH (20:34)
[2022-12-05] MEDS: MoRPHine SULFATE 4 MG/ML 1 ML CARP\\VIAL IV PRN ×6 (00:24→19:49)
[2022-12-05] MEDS: dexAMETHasone 4 MG in SYRINGE 0 ML IV SCH ×3 (02:48→18:36)
[2022-12-05] MEDS: ONDANSETRON INJ 2 MG/ML 2 ML VIAL IV PRN ×2 (06:23→21:27)
[2022-12-05 07:08] LABS: Basophils # (auto) 0.03 K/uL (0-0.2); Basophils % (auto) 0.2 %; Hematocrit (blood only) 37.2 % (37.0-47.0); Hemoglobin 12.3 g/dl (12.0-16.0); Immature Granulocytes % (auto) 0.6 %; Lymphocytes % (auto) 9.1 %; Mean Corpuscular Hemoglobin 29.4 pg (25.0-34.0); Mean Corpuscular Hgb Conc 33.1 g/dL (32.0-36.0); Mean Platelet Volume 9.3 fL (9.4-12.4); Monocytes # (auto) 0.56 K/uL (0.11-0.59); Monocytes % (auto) 3.4 %; Neutrophils # (auto) 14.23 K/uL (1.40-6.50); Neutrophils % (auto) 86.7 %; Platelet Count 408 K/uL (130-400); RDW Coefficient of Variation 14.4 % (11.5-14.5); RDW Standard Deviation 46.6 fL (36.4-46.3); Red Blood Count 4.18 M/uL (4.20-5.40); White Blood Count 16.42 K/ul (4.8-10.8)
[2022-12-05 07:22] LABS: Albumin Globulin Ratio 1.9 (0.9-2); Albumin Level 3.9 gm/dl (3.4-5.0); BUN Creatinine Ratio 30.4 (10-20); Bilirubin,Total 0.5 mg/dl (0.2-1.0); Creatinine Clr Calc Pharmacy 85.8 ml/min; Est GFR (Non-African American) 96.6 ml/min; Globulin 2.1 gm/dl (2.5-4.0); Magnesium 1.8 mg/dl (1.7-2.4); Potassium 4.3 mmol/L (3.5-5.1)
[2022-12-05] MEDS: LORazepam 2 MG/1 ML VIAL IV PRN ×3 (08:06→21:13)
[2022-12-05] MEDS: tiZANidine HCL 4 MG TABLET PO PRN ×2 (08:17→21:13)
[2022-12-05] MEDS: ACETAMINOPHEN 500 MG TAB PO SCH ×3 (09:30→21:12)
[2022-12-05] MEDS: CETIRIZINE HCL 10 MG TABLET PO SCH (09:30)
[2022-12-05] MEDS: DORZOLAMIDE/TIMOLOL 22.3/6.8MG/ML 10 ML BTL OP SCH ×2 (09:30→21:12)
[2022-12-05] MEDS: FAMOTIDINE 20 MG TAB PO SCH ×2 (09:31→21:13)
[2022-12-05] MEDS: HEPARIN SOD 5,000 UNIT/0.5 ML VIAL SQ SCH ×2 (09:32→21:13)
[2022-12-05] MEDS: LIDOCAINE 5% 1 PATCH TD SCH (09:34)
[2022-12-05] MEDS: INSULIN ASPART PER UNIT CHARGE SC SCH ×4 (09:39→22:06)
--- NOTE | 2022-12-05 11:52 | Orthopedic Progress Note ---
Date of Service December 05, 2022 Assessment & Plan (1) Spinal stenosis of lumbar region with radiculopathy: Plan: This time we will continue physical therapy monitor her CHRISTOPHER output hopefully discharge home in the next few days. Admission and Anticipated Discharge Date Admission Date: December 03, 2022 Subjective Back pain controlled leg symptoms improved Physical Exam Physical Exam: Patient is up and ambulating the halls. She has good strength testing. Results & Data Vital Signs (Past 12 Hours) Vital Signs Temp Pulse Resp BP Pulse Ox O2 Del Method 12/05/22 11:34 37.0 C 48 L 16 103/59 L 97 Room Air 12/05/22 07:59 36.8 C 49 L 16 121/75 96 Room Air 12/05/22 03:18 36.7 C 57 L 18 113/67 96 Room Air
[2022-12-05] MEDS: LACTATED RINGER'S 1,000 ML IV SCH (13:25)
--- NOTE | 2022-12-05 17:55 | Hospitalist Progress Note ---
Date of Service December 05, 2022 Assessment & Plan (1) Acute left-sided back pain with sciatica: Plan: acute back pain, undetermied significance Lumbar degenerative disc disease/L5-S1 herniated disc/left lower extremity radiculopathy- Given dexamethasone 10 mg IV, continues on 4 mg IV every 8 hours Acetaminophen 650 mg p.o. every 6 hours as needed for mild pain or fever oxycodone for moderate pain Morphine sulfate 4 mg IV every 4 hours as needed for severe pain Continue tizanidine 4 mg p.o. twice daily as needed Lumbar spine MRI from 12/03/2022, central disc protrusion at L4-5 with mild narrowing of the thecal sac no severe neuroforaminal encroachment is noted. Underlying disc degeneration seen without acute fracture grade I anterolisthesis of L5 on S1 Consult orthopedic spine surgery Dr. Herndon, performed lumbar decompression fusion L4 S1 on 12/04/2022 (2) Diabetes mellitus, type 2: Plan: chronic and stable Diabetes mellitus- Hold metformin and Jardiance Placed on Accu-Cheks with NovoLog SSI chronic care glucoses reviewed and acceptable (3) Hypertension: Plan: chronic and stable Hypertension- Continue atenolol, hold lisinopril (4) Hyperlipidemia: Plan: chronic and stable Hyperlipidemia- Hold atorvastatin and fenofibrate Plan Glaucoma- Continue usual eyedrops Admission and Anticipated Discharge Date Admission Date: December 03, 2022 Subjective Pt still with symptoms still with leg numbness Physical Exam Physical Exam: Awake alert appropriate no respiratory or pulmonary distress at this time no signs or symptoms of unstable angina or heart failure paresthesias are subjective Results & Data Results & Data Vital Signs (Past 12 Hours) Vital Signs Temp Pulse Resp BP Pulse Ox O2 Del Method 12/05/22 16:47 97.7 F 47 L 16 116/71 97 Room Air 12/05/22 11:34 98.6 F 48 L 16 103/59 L 97 Room Air 12/05/22 07:59 98.2 F 49 L 16 121/75 96 Room Air PG Care Time/CCT Total # of Minutes Spent Total Time Spent with Patient: Total time spent is greater than 50% in coordination of care (as documented) at patient's floor/unit and/or counseling patient: Coding Level of Care Code 31732 SUB INP/OBS CARE 2/35MIN Diagnoses Acute left-sided back pain with sciatica M54.42 Diabetes mellitus, type 2 E11.9 Hypertension I10 Hyperlipidemia E78.5
[2022-12-05] MEDS: ATORVASTATIN 20 MG TAB PO SCH (21:12)
[2022-12-05] MEDS: TRAVOPROST Z 0.004% OPH SOLN 2.5 ML BTL OPB SCH (21:12)
[2022-12-05] MEDS: ATENOLOL 25 MG TABLET PO SCH (21:21)
[2022-12-06] MEDS: MoRPHine SULFATE 4 MG/ML 1 ML CARP\\VIAL IV PRN ×3 (00:09→19:33)
[2022-12-06] MEDS: dexAMETHasone 4 MG in SYRINGE 0 ML IV SCH ×3 (02:19→17:32)
[2022-12-06] MEDS: ONDANSETRON INJ 2 MG/ML 2 ML VIAL IV PRN ×2 (06:32→16:44)
[2022-12-06] MEDS ORDERED: DOCUSATE SODIUM/SENNA 50/8.6MG TAB PO ONE (06:51)
[2022-12-06] MEDS: DORZOLAMIDE/TIMOLOL 22.3/6.8MG/ML 10 ML BTL OP SCH ×2 (07:36→21:20)
[2022-12-06] MEDS: CETIRIZINE HCL 10 MG TABLET PO SCH (07:36)
[2022-12-06] MEDS: FAMOTIDINE 20 MG TAB PO SCH ×2 (07:37→21:20)
[2022-12-06] MEDS: HEPARIN SOD 5,000 UNIT/0.5 ML VIAL SQ SCH ×2 (07:37→21:20)
[2022-12-06] MEDS: LIDOCAINE 5% 1 PATCH TD SCH (07:37)
[2022-12-06] MEDS: INSULIN ASPART PER UNIT CHARGE SC SCH ×4 (07:44→20:33)
--- NOTE | 2022-12-06 08:39 | Orthopedic Progress Note ---
Date of Service December 06, 2022 Assessment & Plan (1) Spinal stenosis of lumbar region with radiculopathy: Plan: Veronica is postoperative day 2 status post posterior spinal fusion L4-S1. She will continue with physical therapy today. Maintain CHRISTOPHER drain. DVT prophylaxis is in the form teds and SCDs. Continue with aggressive bowel regimen. Anticipate discharge home tomorrow. Admission and Anticipated Discharge Date Admission Date: December 03, 2022 Subjective Veronica is postoperative day 2 status post posterior spinal fusion L4-S1. She still has some numbness and limited pain in her left foot. She has had a bowel movement. Urinating without issue. Yesterday in physical therapy completing 250 feet. CHRISTOPHER drain output last shift was 5 cc. Review of Systems Review of Systems: All systems reviewed & are unremarkable except as noted in HPI & below Physical Exam Physical Exam: She is lying in bed in no acute distress Alert and oriented x3 Lumbar dressing is clean dry and intact with functioning CHRISTOPHER drain Calf soft and nontender bilaterally Strength intact bilateral lower extremities Results & Data Vital Signs (Past 12 Hours) Vital Signs Temp Pulse Resp BP Pulse Ox O2 Del Method 12/06/22 07:48 36.6 C 54 L 16 127/83 96 Room Air 12/05/22 21:18 36.6 C 49 L 18 135/81 96 Room Air
[2022-12-06] MEDS: LORazepam 2 MG/1 ML VIAL IV PRN (09:37)
[2022-12-06] MEDS: ACETAMINOPHEN 500 MG TAB PO SCH ×2 (09:37→13:26)
[2022-12-06] MEDS: tiZANidine HCL 4 MG TABLET PO PRN ×2 (12:32→17:01)
[2022-12-06] MEDS: oxyCODONE HCL IR 5 MG TAB (IMMEDIATE RELEASE) PO PRN ×3 (12:33→21:12)
[2022-12-06] MEDS: LACTATED RINGER'S 1,000 ML IV SCH (12:44)
--- NOTE | 2022-12-06 18:17 | Hospitalist Progress Note ---
Date of Service December 06, 2022 Assessment & Plan (1) Acute left-sided back pain with sciatica: Plan: acute back pain, s/p lumbar decompression fusion L4 S1 on 12/04/2022 Given dexamethasone 10 mg IV, continues on 4 mg IV every 8 hours Acetaminophen 650 mg p.o. every 6 hours as needed for mild pain or fever oxycodone for moderate pain Morphine sulfate 4 mg IV every 4 hours as needed for severe pain Continue tizanidine 4 mg p.o. twice daily as needed Lumbar spine MRI from 12/03/2022, central disc protrusion at L4-5 with mild narrowing of the thecal sac no severe neuroforaminal encroachment is noted. Underlying disc degeneration seen without acute fracture grade I anterolisthesis of L5 on S1 (2) Diabetes mellitus, type 2: Plan: chronic and stable Diabetes mellitus- Hold metformin and Jardiance Placed on Accu-Cheks with NovoLog SSI chronic care glucoses reviewed and acceptable (3) Hypertension: Plan: chronic and stable Hypertension- Continue atenolol, hold lisinopril (4) Hyperlipidemia: Plan: chronic and stable Hyperlipidemia- Hold atorvastatin and fenofibrate Plan Glaucoma- Continue usual eyedrops Admission and Anticipated Discharge Date Admission Date: December 03, 2022 Subjective postoperative post posterior spinal fusion L4-S1. still has some paresthesia but this seems more peripheral Physical Exam Physical Exam: Awake alert appropriate no respiratory or pulmonary distress at this time no signs or symptoms of unstable angina or heart failure paresthesias are subjective Results & Data Results & Data Vital Signs (Past 12 Hours) Vital Signs Temp Pulse Pulse Resp BP Pulse Ox O2 Del Method 12/06/22 11:23 97.9 F 80 54 L 16 127/83 96 12/06/22 07:48 97.9 F 54 L 16 127/83 96 Room Air PG Care Time/CCT Total # of Minutes Spent Total Time Spent with Patient: Total time spent is greater than 50% in coordination of care (as documented) at patient's floor/unit and/or counseling patient: Coding Level of Care Code 13683 SUB INP/OBS CARE 2/35MIN Diagnoses Acute left-sided back pain with sciatica M54.42 Diabetes mellitus, type 2 E11.9 Hypertension I10 Hyperlipidemia E78.5
[2022-12-06] MEDS ORDERED: POLYETHYLENE (MIRALAX) 17 GM PACK PO PRN (19:54)
[2022-12-06] MEDS ORDERED: GLYCERIN ADULT 12 SUPP/BOX SUPP PR PRN (19:54)
[2022-12-06] MEDS: ACETAMINOPHEN 325 MG TAB PO SCH (21:13)
[2022-12-06] MEDS: ATENOLOL 25 MG TABLET PO SCH (21:17)
[2022-12-06] MEDS: DOCUSATE SODIUM/SENNA 50/8.6MG TAB PO SCH (21:19)
[2022-12-06] MEDS: ATORVASTATIN 20 MG TAB PO SCH (21:19)
[2022-12-06] MEDS: TRAVOPROST Z 0.004% OPH SOLN 2.5 ML BTL OPB SCH (21:20)
[2022-12-06] MEDS: LORazepam 0.5 MG TAB PO PRN (21:23)
[2022-12-07] MEDS: ONDANSETRON INJ 2 MG/ML 2 ML VIAL IV PRN (01:14)
[2022-12-07] MEDS: oxyCODONE HCL IR 5 MG TAB (IMMEDIATE RELEASE) PO PRN ×4 (01:14→13:43)
[2022-12-07] MEDS: dexAMETHasone 4 MG in SYRINGE 0 ML IV SCH (01:15)
[2022-12-07] MEDS: tiZANidine HCL 4 MG TABLET PO PRN ×2 (06:38→08:23)
[2022-12-07] MEDS: LORazepam 0.5 MG TAB PO PRN (08:14)
[2022-12-07] MEDS: MoRPHine SULFATE 4 MG/ML 1 ML CARP\\VIAL IV PRN (08:14)
[2022-12-07] MEDS: CETIRIZINE HCL 10 MG TABLET PO SCH (08:23)
[2022-12-07] MEDS: LIDOCAINE 5% 1 PATCH TD SCH (08:23)
[2022-12-07] MEDS: FAMOTIDINE 20 MG TAB PO SCH (08:24)
[2022-12-07] MEDS: HEPARIN SOD 5,000 UNIT/0.5 ML VIAL SQ SCH (08:24)
[2022-12-07] MEDS: ACETAMINOPHEN 325 MG TAB PO SCH ×2 (08:25→12:56)
[2022-12-07] MEDS: DORZOLAMIDE/TIMOLOL 22.3/6.8MG/ML 10 ML BTL OP SCH (08:26)
[2022-12-07] MEDS: DOCUSATE SODIUM/SENNA 50/8.6MG TAB PO SCH (08:26)
--- NOTE | 2022-12-07 08:26 | Orthopedic Progress Note ---
Date of Service December 07, 2022 Assessment & Plan (1) Spinal stenosis of lumbar region with radiculopathy: Plan: At this point we will discontinue her drain and change dressing today hopefully this will provide some comfort. We will continue therapy as tolerated. Co nsider discharge today or tomorrow. Admission and Anticipated Discharge Date Admission Date: December 03, 2022 Subjective Patient is struggling today with back and left leg pain. She is stable to stand and ambulate reasonably well. Physical Exam Physical Exam: Patient is in the chair at the bedside. Is good strength testing.
[2022-12-07] MEDS: INSULIN ASPART PER UNIT CHARGE SC SCH ×2 (08:37→12:44)
[2022-12-07] MEDS ORDERED: dexAMETHasone 8 MG in SYRINGE 0 ML IV SCH (09:00)
--- NOTE | 2022-12-07 14:15 | Discharge Summary ---
Date of Service December 07, 2022 Admission HPI Per Admitting Provider The patient is a 57-year-old female with a past medical history including tinnitus, hyperlipidemia, diabetes mellitus, hypertension, anxiety, lumbar degenerative disc disease and left lower extremity radiculopathy. She presents to the emergency department with worsening low back pain and left lower extremity radicular symptoms. The ED at spoken with orthopedic spine surgery Dr. Herndon, who wants the patient admitted to see in the a.m. Principal Diagnosis Lumbar spinal stenosis with radiculopathy status post L4 S1 decompression fusion 12/04/2022 Discharge Exam pt is with improved but persistent left left pain and weakness to the lateral aspect Discharge Data Allergies Allergy/AdvReac Type Severity Reaction Status Date / Time No Known Allergies Allergy Verified 12/02/22 20:28 Consultations 12/03/22 03:03 ED Decision to Admit Stat 12/04/22 12:07 Consult Physician Routine Procedures Performed Operation Date: 12/04/22 09:40 Actual Procedures p Lumbar Decompression Fusion L4-S1 with Spinal Cord Monitoring(Not Applicable) - Samir Herndon, Ordered Studies 12/03/22 01:31 MR lumbar spine wo con Stat 12/04/22 11:30 FL lumbar spine 2-3V Routine Hospital Course (1) Acute left-sided back pain with sciatica: acute back pain, s/p lumbar decompression fusion L4 S1 on 12/04/2022 Patient completed perioperative dexamethasone will have oxycodone and Ultram for pain at home and follow-up with Dr. Herndon in 2 weeks Lumbar spine MRI from 12/03/2022, central disc protrusion at L4-5 with mild narrowing of the thecal sac no severe neuroforaminal encroachment is noted. Underlying disc degeneration seen without acute fracture grade I anterolisthesis of L5 on S1 (2) Diabetes mellitus, type 2: chronic and stable Diabetes mellitus- Will resume metformin and Jardiance (3) Hypertension: chronic and stable Hypertension- Continue atenolol, hold lisinopril (4) Hyperlipidemia: chronic and stable Hyperlipidemia- resume atorvastatin and fenofibrate Plan Glaucoma- Continue usual eyedrops Total Time Total Time Spent Total Time Spent (In Minutes): It required greater than 30 minutes to prepare this patient for discharge Discharge Plan Discharge Items Patient Disposition: Home - Self-Care Reason For Visit: LUMBAR DISC HERNIATION, LLE RADICULOPATHY Discharge Diagnosis: Lumbar spondylolisthesis with radiculopathy Activity: As commented below Non-emergency contact: Primary Care Provider Call non-emergency contact if: you have any medication questions Follow-up/Referrals: Nichelle Pryor PA-C [Primary Care Provider] - 12/13/22 2:45 pm Diet: Regular Addtl Attending Provider Instructions: ACTIVITY RECOMMENDATIONS: SELF CARE INSTRUCTIONS AFTER THORACIC/LUMBAR FUSIONS 1. You may walk to your tolerance. It is good exercise for your legs and back. Expect some back and intermittent leg aches and pains. 2. You may perform "counter-top" level activities (make a sandwich, ericka with a project, etc.). 3. No bending or lifting of more than 10 pounds or back twisting of any nature (roll like a log when turning in bed). 4. You may ride in a car for 20-30 minutes at a time. No driving until after your first visit with your doctor. 5. Frequent changes of position and restricting sitting to 30 minutes at a time will help limit the amount of back spasms and stiffness you may experience. 6. You may discontinue the use of ambulatory aids (cane, crutches, etc.) once your strength and confidence allow. 7. You may automotive mechanical engineer the shower and let water strike your incision when you arrive home at least once daily. Do not take a tub bath, sit in a hot tub or go into a swimming pool until after your first recheck in the office. SPECIAL CARE INSTRUCTIONS: VERY IMPORTANT TO READ AND REVIEW A. Your surgical incision has been closed with a cosmetic suture under the skin that will dissolve in about 6 weeks. In 14 days, you can use a pair of clean scissors and cut the suture that is left outside of the skin at the ends of your incision. 1. The small skin tapes can be removed 7 days after surgery if they have not fallen off by that point. 2. You may keep the wound open to air as much as possible to promote healing after post-op day number 5 unless told otherwise by your doctor. 3. If you think the wound looks like it is becoming infected (redness or worsening drainage) and/or you are experiencing fever, chill or worsening back pain and muscle spasms, contact the office so that we may evaluate you as soon as possible. B. Complications are uncommon, but please contact us if you have any signs or symptoms of: 1. wound infection (fever higher than 102.5 degrees F, redness, separation of wound, drainage, or increasing pain from the incision) 2. blood clots in legs (pain, swelling, redness and warmth in legs) 3. urinary tract infection (fever higher than 102.5 degrees F, burning upon urination or increased frequency of urination) 4. nerve problems (inability to walk on your toes or heels, numbness, loss of bowel or bladder control) 5. any other symptoms that concern you C. Please call the office at if you have any concerns or questions about your operation or recovery. D. No smoking! Smoking drastically decreases the chance of a solid fusion. E. Do not take any anti-inflammatory medications (Indocin, Advil, Motrin, Aspirin, Naprosyn, etc.) as these may inhibit the chance of a solid fusion. Tylenol is okay to take for pain. MANAGING PAIN AFTER SPINAL SURGERY 1. Narcotic medication is intended for short-term use and will be provided for surgical pain. Surgical pain usually lasts for a period of 4-6 weeks. Narcotic medication includes Percocet, Vicodin, Darvocet, Tylenol #3 or Lortab. 2. Longer-term pain is more appropriately treated with non-narcotic medication such as Tylenol ES. 3. Muscle spasm is not appropriately treated with narcotics. Muscle relaxers such as Soma, Flexeril or Skelaxin can be used along with Tylenol ES. 4. Remember that we all live with some "aches and pains". This is not unusual or uncommon after an injury or as we get older. a. Back pain is expected and may include muscle spasms for 4 to 6 weeks after surgery. The pain should gradually improve. If the pain worsens for no apparent reason, please contact the office. b. Intermittent leg pain may also be experienced and should not be concerned about unless it worsens for no apparent reason. If so, please contact the office. 5. We will provide appropriate medication within the normal guidelines of their prescribed use. We will also be very cautious and aware of potential abuse and extended duration of patients' medication needs. a. Pain medications are for your comfort and to assist with sleep and rest so that the tissue can heal. They are not provided in order to return to normal activity and should not be used through the day. To do so or worsening pain at night can result from ongoing tissue damage and development of tolerance to the prescribed medicine. 6. Please allow 2-3 days to process refills. Prescriptions will not be mailed but must be picked up at the office. FOLLOW UP VISIT: Keep your scheduled follow-up appointment. Any questions, please call the office at . Pending Studies at Discharge: No Stand-Alone Forms: [facility], Pain - Opioid Pain Management, Smoking Cessation Medications and DC Order Prescriptions: New tramadol 50 mg tablet 50 mg PO Q6H PRN (Reason: pain, moderate) Qty: 30 0RF oxycodone 5 mg tablet 5 mg PO Q6H PRN (Reason: pain) Qty: 30 0RF ondansetron HCl 4 mg tablet 4 mg PO QID PRN (Reason: nausea and vomiting) Qty: 20 0RF lidocaine 5 % adhesive patch,medicated 1 patch topical DAILY Qty: 15 0RF Rx Instructions: leave on most painful area for up to 12 hrs Continued tizanidine 4 mg tablet 4 mg PO BID PRN (Reason: muscle spasticity) Qty: 30 1RF metformin 500 mg Tablet 500 mg PO BID atorvastatin [Lipitor] 20 mg Tablet 20 mg PO HS cetirizine [Zyrtec] 10 mg Tablet 10 mg PO QAM atenolol 25 mg Tablet 25 mg PO QPM travoprost [Travatan Z] 0.004 % Drops 1 drp OPB HS lorazepam [Ativan] 1 mg Tablet 1 mg PO HS PRN (Reason: Anxiety) fenofibrate nanocrystallized 145 mg Tablet 145 mg PO HS lisinopril 20 mg Tablet 20 mg PO QAM dorzolamide-timolol 22.3-6.8 mg/mL Drops 1 drp OPHTHALMIC (EYE) [facility] Jardiance 25 mg tablet 25 mg PO QAM acetaminophen [Tylenol Extra Strength] 500 mg Tablet 1,000 mg PO DIRECTED PRN (Reason: PAIN/FEVER) ibuprofen 200 mg Tablet 400 mg PO DIRECTED PRN (Reason: PAIN/FEVER) docusate sodium [Colace] 100 mg Capsule 100 mg PO DAILY Discharge Orders: Discharge Order (Routine); Ordered 12/07/22 Ordered By: John Maria/Other Patient Handouts: DVT Post Op Prevention, Managing Type 2 Diabetes, Special Foot Care for Diabetes Admission Data Admit Date/Time: 12/03/22 03:31 Attending Provider: John Alcantara Admit Provider: Grabiel Evans Primary Care Provider: Nichelle Pryor Other Providers: Grabiel Evans ; Samir Herndon Other Interventions: Discharge Summary Assessment (RN) Last Done: 12/07/22 13:37 Coding Level of Care Code 15808 INP/OBS DISCH >30 MIN Diagnoses Acute left-sided back pain with sciatica M54.42 Diabetes mellitus, type 2 E11.9 Hypertension I10 Hyperlipidemia E78.5
== END 2022-12-07 14:38 | disposition home or self-care (01) | DRG 455 ==
LOC: ED 19:53 → 3E 12-03 03:31 → SUATTDRO 12-03 03:31 → 3E 12-03 05:15

== ENCOUNTER 2022-12-09 07:06 | Inpatient (IN) ==
[2022-12-09] MEDS ORDERED: MoRPHine SULFATE 4 MG/ML 1 ML CARP\\VIAL IV STA (07:28)
[2022-12-09] MEDS ORDERED: methylPREDNISolone 125 MG/2 ML VIAL IV STA (07:31)
--- NOTE | 2022-12-09 07:31 | Emergency Department Note ---
Impression & Plan Postoperative back pain, Buttock pain, Acute dehydration ED Provider Note NAME: NOEL SCHWARZ AGE: 57 SEX: F : 1965 ARRIVES VIA: Ambulance INFORMANT: Patient, ED PROVIDER(S): Jr Blake MD CHIEF COMPLAINT: Back pain MEDICAL DECISION MAKING: Patient presents due to concern for back pain in the setting of recent post operative procedure on her back completed on Sunday with Dr. Herndon. IV was established blood work was obtained the patient was ordered IV morphine 6 mg. Patient already did receive IV Zofran in route. Patient's blood work is grossly unremarkable with a normal white count H&H. Platelet count is slightly elevated at 14. Kidney function unremarkable with prerenal azotemia. The patient was still having symptoms so was ordered fentanyl additional IV fluids. Patient was also given oxycodone p.o. and methylprednisolone. I did reassess the patient the patient was still having discomfort. The patient was ordered a subsequent dose of morphine. I did speak the on-call hospitalist service. COVID swab was obtained I did speak with on-call hospitalist Dr. Baltazar and the patient was admitted to medicine service. Prior /Outside records reviewed: I did review Dr. herndon's operative report. The patient did have lumbar decompression bilateral facetectomy to me's and foraminotomies spinal fusion interbody fusion cage placement. Differential diagnosis: Musculoskeletal, disc herniation, fracture, metastatic disease, cord compression, discitis, sciatica, cauda equina, infection, aortic disease, renal colic, gastrointestinal, as well as other pathologies. Diagnostics, as interpreted by me: ECG: None Cardiac monitoring: An order was placed for continuous cardiac monitoring. The monitor shows a rate of 95 with sinus rhythm. Patient was placed on pulse oximetry Medical decision rules: none Imaging studies: See below HPI: Patient presents due to concern for back pain. The patient did have a recent procedure with Dr. Herndon on Sunday was discharged . The patient states that the night the patient had taken some oxycodone and Ativan as well as tramadol but without significant improvement in symptoms. The patient does not complain of pain at the incisional site but noticed some left-sided buttock pain that does radiate down to her leg. Patient states that she has had persistent symptoms even from before her surgery with associated weakness but this is unchanged. No bowel or bladder incontinence or retention the patient denies any saddle anesthesia. No falls or traumas since her procedure or since going home. Patient denies any fevers or chills. Patient has been doing daily dressing changes that her daughter performs and they have not noticed any issues. PAST MEDICAL HISTORY: See Below PAST SURGICAL HISTORY: See Below SOCIAL HISTORY: See Below HOME MEDICATIONS: See Below ALLERGIES: See Below VITALS: See Below PHYSICAL EXAMINATION: GENERAL: NAD, wearing a mask, non-toxic. EYE EXAM: Normal conjunctiva. PERRL, no anisocoria and EOM's grossly intact w/o pain. NECK: Supple, no nuchal rigidity, no adenopathy, non-tender. No signs of meningismus. FROM of the neck with good chin to chest and neck extension. No stridor. LUNGS: Clear to auscultation. Normal chest wall mechanics. HEART: NSR, no MRG. ABDOMEN: Abdomen soft, non-tender, no masses, no rebound or guarding. BACK: Lower lumbar surgical she will call side well appearing with no surrounding fluctuance or drainage. SKIN: No rashes and no bruising. UPPER EXTREMITIES: Upper extremities are grossly normal. LOWER EXTREMITIES: Mild discomfort to the left buttock area. No obvious overlying skin changes NEURO EXAM: A&O x3, cranial nerves II-XII grossly intact, normal speech, moves all 4 extremities with 4 out of 5 strength in the left lower extremity compared to the right, no saddle anesthesia, Past Med/Surg History Medical History Anxiety Diabetes mellitus, type 2 Elevated platelet count FOLLOWS HEMATOLOGY (BEING MONITORED) Glaucoma Hx of colonic polyps Hyperlipidemia Hypertension Surgical History History of cardiac cath 7 YRS AGO @ [place] > FOR CHEST PAIN > NO STENTS History of section X 1 History of cholecystectomy History of colonoscopy History of dilatation and curettage History of endoscopic sinus surgery History of tooth extraction Family History Grandmother (Maternal) Diabetes Family history of diabetes mellitus Mother Family history of diabetes mellitus Other No family history of adverse response to anesthesia Social History Smoking Status: Former smoker Tobacco Type: Cigarettes Cigarettes Per Day: 10; Second Hand Exposure: Yes (IN THE PAST); Do You Dip or Chew Tobacco: No; Hx Alcohol Use: Yes Hx Substance Use: No Preferred Language: Belarusian Communication Ability: Effective Mash Grinder Required: No Beliefs That Will Affect Care: None Current Living Situation: Family Current Living Situation Comment: Lives with and step son Feels Safe at Home: Yes Assistive Devices: None Allergies Allergies Allergy/AdvReac Type Severity Reaction Status Date / Time No Known Allergies Allergy Verified 12/09/22 10:27 Home Meds Home Medications Medication Instructions Recorded Confirmed atenolol 25 mg tablet 25 mg PO QPM 06/06/19 12/09/22 atorvastatin 20 mg tablet (Lipitor) 20 mg PO HS 06/06/19 12/09/22 cetirizine 10 mg tablet (Zyrtec) 10 mg PO QAM 06/06/19 12/09/22 fenofibrate nanocrystallized 145 145 mg PO HS 06/06/19 12/09/22 mg tablet lorazepam 1 mg tablet (Ativan) 1 mg PO HS PRN Anxiety 06/06/19 12/09/22 metformin 500 mg tablet 500 mg PO HS 06/06/19 12/09/22 travoprost 0.004 % eye drops 1 drp OPB HS 06/06/19 12/09/22 (Travatan Z) dorzolamide 22.3 mg-timolol 6.8 1 drp ophthalmic (eye) [facility] 11/02/20 12/09/22 mg/mL eye drops lisinopril 20 mg tablet 20 mg PO QAM 11/02/20 12/09/22 acetaminophen 500 mg tablet 1,000 mg PO DIRECTED PRN 12/02/22 12/09/22 (Tylenol Extra Strength) PAIN/FEVER docusate sodium 100 mg capsule 100 mg PO DAILY 12/02/22 12/09/22 (Colace) empagliflozin 25 mg tablet 25 mg PO QAM 12/02/22 12/09/22 (Jardiance) Previous Rx's Medication Instructions Recorded tizanidine 4 mg tablet 4 mg PO BID PRN muscle spasticity 10/06/22 #30 tabs oxycodone 5 mg tablet 5 mg PO Q6H PRN pain #30 tabs 12/05/22 tramadol 50 mg tablet 50 mg PO Q6H PRN pain, moderate 12/05/22 #30 tabs lidocaine 5 % topical patch 1 patch topical DAILY #15 ea 12/07/22 ondansetron HCl 4 mg tablet 4 mg PO QID PRN nausea and 12/07/22 vomiting #20 tabs Results & Data (ED) Vital Signs Vital Signs - 24 hr 12/09/22 07:09 12/09/22 07:12 12/09/22 07:30 Temperature 37.2 C Temperature Source Oral Pulse Rate 92 H 101 H 63 Respiratory Rate 18 15 Respiratory Effort / Characteristics Non-Labored Spontaneous Respiratory Depth Normal Respiratory Pattern Regular Blood Pressure 156/101 H 135/87 Blood Pressure Mean 119 103 Blood Pressure Position Lying Pulse Oximetry 97 94 Oxygen Delivery Method Room Air Room Air Sepsis Recent Fever Within 48 Hours No Sepsis New/Unexplained Change in Mental Status N/A Sepsis Action Taken by Nursing No Action Required 12/09/22 08:00 12/09/22 08:30 12/09/22 09:00 Temperature Temperature Source Pulse Rate 77 75 74 Respiratory Rate 19 16 15 Respiratory Effort / Characteristics Respiratory Depth Respiratory Pattern Blood Pressure 142/77 H 139/76 152/67 H Blood Pressure Mean 98 97 95 Blood Pressure Position Pulse Oximetry 94 95 93 Oxygen Delivery Method Room Air Room Air Room Air Sepsis Recent Fever Within 48 Hours Sepsis New/Unexplained Change in Mental Status Sepsis Action Taken by Nursing 12/09/22 10:38 Temperature Temperature Source Pulse Rate 88 Respiratory Rate Respiratory Effort / Characteristics Respiratory Depth Respiratory Pattern Blood Pressure Blood Pressure Mean Blood Pressure Position Pulse Oximetry Oxygen Delivery Method Sepsis Recent Fever Within 48 Hours Sepsis New/Unexplained Change in Mental Status Sepsis Action Taken by [facility] Medications Current Medication List: was personally reviewed by me Laboratory Data Attestation: I reviewed the patient's lab results. 12/09/22 08:10 12/09/22 08:10 Lab Results 12/09/22 12/09/22 Range/Units 08:10 08:10 WBC 10.06 (4.8-10.8) K/ul RBC 4.38 (4.20-5.40) M/uL Hgb 13.1 (12.0-16.0) g/dl Hct 39.7 (37.0-47.0) % MCV 90.6 (80.0-100.0) fL MCH 29.9 (25.0-34.0) pg MCHC 33.0 (32.0-36.0) g/dL RDW Std Deviation 46.6 H (36.4-46.3) fL RDW Coeff of Robert 14.1 (11.5-14.5) % Plt Count 418 H (130-400) K/uL MPV 9.2 L (9.4-12.4) fL Immature Gran % (Auto) 0.7 % Neut % (Auto) 65.9 % Lymph % (Auto) 25.7 % [place] % (Auto) 5.8 % Eos % (Auto) 1.1 % Baso % (Auto) 0.8 % Neut # (Auto) 6.63 H (1.40-6.50) K/uL Lymph # (Auto) 2.59 (1.2-3.4) K/uL [place] # (Auto) 0.58 (0.11-0.59) K/uL Eos # (Auto) 0.11 (0-0.50) K/uL Baso # (Auto) 0.08 (0-0.2) K/uL Immature Gran # (Auto) 0.07 (0.01-0.20) K/uL Sodium 138 (136-145) mmol/L Potassium 3.9 (3.5-5.1) mmol/L Chloride 104 (98-107) mmol/L Carbon Dioxide 26 (21-32) mmol/L Anion Gap 8 (3-11) BUN 16 (6-23) mg/dl Creatinine 0.54 L (0.6-1.2) mg/dl Est Cr Clr Drug Dosing 110.0 ml/min Est GFR ( Amer) 121.4 ml/min Est GFR (Non-Af Amer) 104.8 ml/min BUN/Creatinine Ratio 29.6 H (10-20) Glucose 111 H (70-99(Fasting)) mg/dl Calcium 9.3 (8.6-10.3) mg/dl Administered Medications Discontinued Medications Acetaminophen (Acetaminophen 500 Mg Tab) 1,000 mg PO NOW STA Stop: 12/09/22 09:23 Last Admin: 12/09/22 09:46 Dose: 1,000 mg Documented By: MAKSIM Fentanyl Citrate (Fentanyl Citrate Pf 100 Mcg/2 Ml Vial) 25 mcg IV NOW STA Stop: 12/09/22 09:23 Last Admin: 12/09/22 09:46 Dose: 25 mcg Documented By: MAKSIM Sodium Chloride (Nss 1000ml) 500 mls @ 999 mls/hr IV .Q31M ONE Stop: 12/09/22 09:52 Last Infusion: 12/09/22 10:42 Dose: 0 mls/hr Documented By: Admin: 12/09/22 09:46 Dose: 999 mls/hr Documented By: MAKSIM Methylprednisolone (Methylprednisolone 125 Mg/2 Ml Vial) 60 mg IV NOW STA Stop: 12/09/22 07:32 Last Admin: 12/09/22 07:39 Dose: 60 mg Documented By: MAKSIM Morphine Sulfate (Morphine Sulfate 4 Mg/Ml 1 Ml Carp\Vial) 6 mg IV NOW STA Stop: 12/09/22 07:29 Last Admin: 12/09/22 07:35 Dose: 6 mg Documented By: MAKSIM Morphine Sulfate (Morphine Sulfate 10 Mg/Ml Carp/Vial) 6 mg IV NOW STA Stop: 12/09/22 11:22 Last Admin: 12/09/22 11:28 Dose: 6 mg Documented By: ARS Discharge Plan Visit Data Chief Complaint: Hip Pain ED Provider: Jr Blake Discharge Problem: Postoperative back pain, Buttock pain, Acute dehydration Forms Stand Alone Forms: On License Of [facility] Prescriptions Prescriptions: No Action tizanidine 4 mg tablet 4 mg PO BID PRN (Reason: muscle spasticity) Qty: 30 1RF metformin 500 mg Tablet 500 mg PO HS atorvastatin [Lipitor] 20 mg Tablet 20 mg PO HS cetirizine [Zyrtec] 10 mg Tablet 10 mg PO QAM atenolol 25 mg Tablet 25 mg PO QPM travoprost [Travatan Z] 0.004 % Drops 1 drp OPB HS lorazepam [Ativan] 1 mg Tablet 1 mg PO HS PRN (Reason: Anxiety) fenofibrate nanocrystallized 145 mg Tablet 145 mg PO HS lisinopril 20 mg Tablet 20 mg PO QAM dorzolamide-timolol 22.3-6.8 mg/mL Drops 1 drp OPHTHALMIC (EYE) [facility] Jardiance 25 mg tablet 25 mg PO QAM acetaminophen [Tylenol Extra Strength] 500 mg Tablet 1,000 mg PO DIRECTED PRN (Reason: PAIN/FEVER) docusate sodium [Colace] 100 mg Capsule 100 mg PO DAILY tramadol 50 mg tablet 50 mg PO Q6H PRN (Reason: pain, moderate) Qty: 30 0RF oxycodone 5 mg tablet 5 mg PO Q6H PRN (Reason: pain) Qty: 30 0RF ondansetron HCl 4 mg tablet 4 mg PO QID PRN (Reason: nausea and vomiting) Qty: 20 0RF lidocaine 5 % adhesive patch,medicated 1 patch topical DAILY Qty: 15 0RF Rx Instructions: leave on most painful area for up to 12 hrs Referrals Referrals: Nichelle Pryor PA-C [Primary Care Provider] -
[2022-12-09 08:36] LABS: Basophils # (auto) 0.08 K/uL (0-0.2); Basophils % (auto) 0.8 %; Eosinophils # (auto) 0.11 K/uL (0-0.50); Eosinophils % (auto) 1.1 %; Hematocrit (blood only) 39.7 % (37.0-47.0); Hemoglobin 13.1 g/dl (12.0-16.0); Immature Granulocytes # (auto) 0.07 K/uL (0.01-0.20); Immature Granulocytes % (auto) 0.7 %; Lymphocytes # (auto) 2.59 K/uL (1.2-3.4); Lymphocytes % (auto) 25.7 %; Mean Corpuscular Hemoglobin 29.9 pg (25.0-34.0); Mean Corpuscular Volume 90.6 fL (80.0-100.0); Mean Platelet Volume 9.2 fL (9.4-12.4); Monocytes # (auto) 0.58 K/uL (0.11-0.59); Monocytes % (auto) 5.8 %; Neutrophils # (auto) 6.63 K/uL (1.40-6.50); Neutrophils % (auto) 65.9 %; Platelet Count 418 K/uL (130-400); RDW Coefficient of Variation 14.1 % (11.5-14.5); RDW Standard Deviation 46.6 fL (36.4-46.3); Red Blood Count 4.38 M/uL (4.20-5.40); White Blood Count 10.06 K/ul (4.8-10.8)
[2022-12-09 08:53] LABS: BUN Creatinine Ratio 29.6 (10-20); Calcium 9.3 mg/dl (8.6-10.3); Est GFR (African American) 121.4 ml/min; Est GFR (Non-African American) 104.8 ml/min; Potassium 3.9 mmol/L (3.5-5.1)
[2022-12-09] MEDS ORDERED: SODIUM CHLORIDE 0.9% 1000ML 500 ML IV ONE (09:22)
[2022-12-09] MEDS ORDERED: ACETAMINOPHEN 500 MG TAB PO STA (09:22)
[2022-12-09] MEDS ORDERED: fentaNYL citrate PF 100 MCG/2 ML VIAL IV STA (09:22)
[2022-12-09] MEDS ORDERED: MoRPHine SULFATE 10 MG/ML CARP/VIAL IV STA (11:21)
--- NOTE | 2022-12-09 11:51 | History & Physical Report ---
Date of Service December 09, 2022 Assessment & Plan (1) Buttock pain: (2) Postoperative back pain: Plan: Left lower extremity radiculopathy, ambulatory dysfunction. Multifactorial with recent lumbar decompression/fusion, with superimposed sciatica/piriformis syndrome - s/p lumbar decompression/fusion/hardware placement with Dr. Herndon 12/04/2022 recently discharged 12/07/2022 who read presents to the ER with continued left- sided buttock and back pain radiating down her leg which was present before surgery but is persistent and unchanged - She unable to perform her IADLs at home and who reports she is unable to return home due to inadequate pain control and ambulatory dysfunction. - Pain with inadequate improvement following fentanyl, morphine 6 mg x 2, and methylprednisolone load in the ER. Creatinine normal at baseline, admitting creatinine 0.54. No gross electrolyte abnormalities. Mild volume contraction with BUN/creatinine ratio of 29. Hold home tramadol, will admit with multimodal pain control. Tylenol scheduled every 8 hours, lidocaine patch daily, continue tizanidine twice daily as needed, hydrocodone scaled for breakthrough. Convert Tylenol and hydrocodone to [place] when able and more reasonable pain control achieved. Will add gabapentin to see if this helps with neuropathic pain, patient counseled that this may cause respiratory sedation or confusion especially combination with her other medications. PT/OT pending. PT note reviewed from 12/07/2022, did have a 6 clicks total score of 21 and was recommended for return home and patient was progressing with good strength. Patient is no longer able to ambulate or perform her ADLs, reports that she does think that she will likely need rehab prior to returning home with her current level of disability and is agreeable to placement if indicated Patient is also with new anterior hip pain and some discomfort with internal/external rotation which is new. Denies falls or hip injury. Left hip pelvis/x-ray pending (3) Anxiety: (4) Diabetes mellitus, type 2: Plan: Type II DM Weight-based basal bolus Goal BSG [id number] Hold home Jardiance/metformin Basal 7 units twice daily, CF 55, carb ratio 18 by weight Pharmacy consulted for assistance with adjustments while on steroids (5) Hypertension: Plan: Hypertension Continue atenolol 25 mg every afternoon (6) Hyperlipidemia: Plan: Hyperlipidemia Atorvastatin 20 mg p.o. at bedtime, fenofibrate Plan DVT prophylaxis: SCDs Diet: DM 2 Disposition: Medical/surgical CODE STATUS: Full code History of Present Illness Primary Care Provider: Nichelle Martin is a 57-year-old female with a past medical history of hyperlipidemia, DM 2, hypertension, anxiety, lumbar degenerative disc disease and left lower extremity radiculopathy s/p lumbar decompression/fusion/hardware placement with Dr. Herndon 12/04/2022 recently discharged 12/07/2022 who read presents to the ER with continued left-sided buttock and back pain radiating down her leg which was present before surgery but is persistent and unchanged and patient is unable to perform her IADLs at home and who reports she is unable to returnhome due to inadequate pain control and ambulatory dysfunction. Her pain did not significantly improved following fentanyl, morphine 6 mg x 2, and methylprednisolone load in the ER. Hx sciatic pain for 1 year n the L buttcheek. Was scheduled for later in the year but pain worsened a week a ago and was admitted for surgical intervention of lumbar DDD/radiculopathy. Pt reprots per Dr. Herndon nerve was noted to be particularly badly impinged and irritated during surgery. She returned home last . Has been taking oxy/tylenol/tramadol. She cannot walk, lay, sit. Sleeps barely a few hours before getting back up for pain. Is taking all medications around the clock but. Bring it down rarely at best to a 4/10 from 10/10. Throbs and hurts 'clear down into the L foot' with numbness in the foot/ankle which is new and was not present before her lumbar surgery. Surgery prior was just down to the butt cheek. Strength in LLE is significantly worse compared to preop, and immediately post-op. INitially could flex at the hip preop and postop, but strength has been progressively worsening and cannot lift off the bed since returning home. Has been able to walk minimally to the bathroom since. - Hsn't been eating due to pain. No vomiting +nausea. No diarrhea. - No fever,chills sweats, but felt shakey and warm for one day last week. Nothing in the last 48 hours. No chest pain, chest pressure, lightheadedness, dizziness, syncope, presyncope, falls. Medical History: Reviewed Medications: Reviewed Surgical History: Reviewed Family history: Reviewed Allergies: Reviewed. No known drug allergies Social History: No tobacco/alcohol use Code Status: Full code Allergies Allergy/AdvReac Type Severity Reaction Status Date / Time No Known Allergies Allergy Verified 12/09/22 10:27 Home Medications Medication Instructions Recorded Confirmed Type atenolol 25 mg tablet 25 mg PO QPM 06/06/19 12/09/22 History atorvastatin 20 mg tablet (Lipitor) 20 mg PO HS 06/06/19 12/09/22 History cetirizine 10 mg tablet (Zyrtec) 10 mg PO QAM 06/06/19 12/09/22 History fenofibrate nanocrystallized 145 145 mg PO HS 06/06/19 12/09/22 History mg tablet lorazepam 1 mg tablet (Ativan) 1 mg PO HS PRN Anxiety 06/06/19 12/09/22 History metformin 500 mg tablet 500 mg PO HS 06/06/19 12/09/22 History travoprost 0.004 % eye drops 1 drp OPB HS 06/06/19 12/09/22 History (Travatan Z) dorzolamide 22.3 mg-timolol 6.8 1 drp ophthalmic (eye) [facility] 11/02/20 12/09/22 History mg/mL eye drops lisinopril 20 mg tablet 20 mg PO QAM 11/02/20 12/09/22 History tizanidine 4 mg tablet 4 mg PO BID PRN muscle spasticity 10/06/22 12/09/22 Rx #30 tabs acetaminophen 500 mg tablet 1,000 mg PO DIRECTED PRN 12/02/22 12/09/22 History (Tylenol Extra Strength) PAIN/FEVER docusate sodium 100 mg capsule 100 mg PO DAILY 12/02/22 12/09/22 History (Colace) empagliflozin 25 mg tablet 25 mg PO QAM 12/02/22 12/09/22 History (Jardiance) oxycodone 5 mg tablet 5 mg PO Q6H PRN pain #30 tabs 12/05/22 12/09/22 Rx tramadol 50 mg tablet 50 mg PO Q6H PRN pain, moderate 12/05/22 12/09/22 Rx #30 tabs lidocaine 5 % topical patch 1 patch topical DAILY #15 ea 12/07/22 12/09/22 Rx ondansetron HCl 4 mg tablet 4 mg PO QID PRN nausea and 12/07/22 12/09/22 Rx vomiting #20 tabs Past Med/Surg History Medical History Anxiety Diabetes mellitus, type 2 Elevated platelet count FOLLOWS HEMATOLOGY (BEING MONITORED) Glaucoma Hx of colonic polyps Hyperlipidemia Hypertension Surgical History History of cardiac cath 7 YRS AGO @ [facility] > FOR CHEST PAIN > NO STENTS History of section X 1 History of cholecystectomy History of colonoscopy History of dilatation and curettage History of endoscopic sinus surgery History of tooth extraction Family History Grandmother (Maternal) Diabetes Family history of diabetes mellitus Mother Family history of diabetes mellitus Other No family history of adverse response to anesthesia Social History Smoking Status: Former smoker Tobacco Type: Cigarettes Cigarettes Per Day: 10; Second Hand Exposure: Yes (IN THE PAST); Do You Dip or Chew Tobacco: No; Hx Alcohol Use: Yes Hx Substance Use: No Preferred Language: Tunisian Communication Ability: Effective 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 NAD. Cooperative. HEENT: Atraumatic, normocephalic. Vision/hearing intact Pulm: CTAB A&P. -wheezes, -rales, -rhonchi. Symmetrical chest rise. No increased work of breathing. No respiratory distress. Cardiac: RRR, -mrg. Radial pulses intact and symmetrical. Abdominal: Nontender, nondistended, soft. BS present. Back: Surgical dressing in place, removed for exam. Surgical incision C/C/I, no surrounding erythema or discharge, well-healing. No spinal/paraspinal tenderness to palpation or induction of radicular symptoms on paraspinal lumbar palpation Extremities: Left lower extremity hip flexion 3/5, unable to lift completely against antigravity due to weakness, patient endorses pain but denies pain limitation to hip flexion. Ankle dorsiflexion/plantarflexion 4/5 on the left, 5/5 on the right. Sensation is intact to soft touch in the calfs, ford, dorsal foot, and plantar foot bilaterally but qualitatively greatly decreased on the left compared to the right. Right hip flexion 5/5. Patient endorses exquisite tenderness to palpation on piriformis palpation, this does not produce shooting pain/numbness tingling into her foot. Also endorses some anterior hip pain. [place] does not produce pain Results & Data Results & Data Vital Signs (Past 12 Hours) Vital Signs Temp Pulse Resp BP Pulse Ox O2 Del Method 12/09/22 10:38 88 12/09/22 09:00 74 15 152/67 H 93 Room Air 12/09/22 08:30 75 16 139/76 95 Room Air 12/09/22 08:00 77 19 142/77 H 94 Room Air 12/09/22 07:30 63 15 135/87 94 Room Air 12/09/22 07:12 101 H 12/09/22 07:09 37.2 C 92 H 18 156/101 H 97 Room Air PG Care Time/CCT Total # of Minutes Spent Total Time Spent with Patient: Total time spent is greater than 50% in coordination of care (as documented) at patient's floor/unit and/or counseling patient: Coding Level of Care Code 18051 INT INP/OBS CARE 2/55MIN Diagnoses Buttock pain M79.18 Postoperative back pain G89.18; M54.9 Anxiety F41.9 Diabetes mellitus, type 2 E11.9 Hypertension I10 Hyperlipidemia E78.5
[2022-12-09] MEDS ORDERED: GLUCOSE 10 TAB/TUBE PO PRN (13:01)
[2022-12-09] MEDS ORDERED: GLUCOSE 40% GEL 15 GM TUBE PO PRN (13:01)
[2022-12-09] MEDS ORDERED: DEXTROSE 50% 50 ML SYRINGE IV PRN (13:01)
[2022-12-09] MEDS ORDERED: POLYETHYLENE (MIRALAX) 17 GM PACK PO PRN (13:01)
[2022-12-09] MEDS ORDERED: PHARMACY GLYCEMIC MGMT CONSULT PRN (13:01)
[2022-12-09] MEDS ORDERED: CARBOHYDRATES FOR HYPOGLYCEMIA PO PRN (13:01)
[2022-12-09] MEDS ORDERED: GLUCAGON FOR INJ 1 MG VIAL SQ PRN (13:01)
[2022-12-09] MEDS ORDERED: HYDROmorphone INJ 0.5 MG/0.5 ML SYR ONE (13:22)
[2022-12-09] MEDS: HYDROmorphone INJ 0.5 MG/0.5 ML SYR IV PRN ×3 (13:24→23:24)
--- NOTE | 2022-12-09 13:51 | Pharmacy Report ---
Pharmacy Glycemic Short Note 2 - Date of Service December 09, 2022 - Glycemic Short BSG Results (Last 24 hours): 12/09/22 08:10 Glucose 111 H OUTPATIENT ANTIDIABETIC REGIMEN: * Jardiance 25 mg PO daily * Metformin 500 mg PO daily HbA1c: 6.9% (12/04/22) ASSESSMENT: * RODRIGUEZ is a 57 year old female who presents to ED with postoperative back/buttock pain * POD #5 s/p lumbar decompression/fusion * During recent hospitalization, patient did not require aggressive insulin dosing despite IV dexamethasone * Ordered IV methylprednisolone 60 mg x 1 today, 40 mg IV daily ongoing starting tomorrow morning * Will utilize weight-based stress of 2 dosing with 0.1 unit/kg basal for now PLAN FOR INPATIENT GLYCEMIC CONTROL: * Hold outpatient oral diabetes medications * Basal insulin * Lantus 8 units SC x 1 * Reassess in AM * Bolus insulin * NovoLog per scale ACHS or Q6hrs while NPO * Goal Range: Low 110 mg/dL - High 140 mg/dL * Correction Factor: 30 mg/dL/unit * Nutritional / Prandial insulin per carb ratio of 1 unit per 10 grams CHO consumed
[2022-12-09] MEDS ORDERED: LANTUS PER UNIT CHARGE SQ ONE (14:00)
--- NOTE | 2022-12-09 14:08 | XRay Report ---
XR hip 1V LT w pelvis CLINICAL HISTORY: Left hip pain. COMPARISON STUDY: None. FINDINGS: Partially visualized lumbar spinal fusion hardware is noted. No acute fracture or dislocati on within the pelvis or hips. The sacrum is intact. Mild degenerative changes within the sacroiliac j oints, symphysis pubis, and bilateral hips. IMPRESSION: 1. No fracture or dislocation within the pelvis or hips. 2. Mild degenerative changes are noted. ACT 112: Negative or not required by law. Electronically signed by: Celestino Palma M.D. 12/09/2022 2:06 PM
[2022-12-09] MEDS: ACETAMINOPHEN 325 MG TAB PO PRN ×3 (14:18→23:23)
[2022-12-09] MEDS: LIDOCAINE 5% 1 PATCH TD SCH (14:19)
[2022-12-09] MEDS: HYDROmorphone INJ 1 MG/ML SYRINGE IV PRN ×2 (15:51→20:54)
[2022-12-09] MEDS: ONDANSETRON INJ 2 MG/ML 2 ML VIAL IV PRN (15:51)
[2022-12-09] MEDS: INSULIN ASPART PER UNIT CHARGE SC SCH ×3 (15:51→21:07)
[2022-12-09] MEDS: GABAPENTIN 100 MG CAP PO SCH (16:01)
[2022-12-09] MEDS ORDERED: LANTUS PER UNIT CHARGE SQ SCH (21:00)
[2022-12-09] MEDS ORDERED: LORazepam 1 MG TAB PO ONE (21:00)
[2022-12-09] MEDS: TRAVOPROST Z 0.004% OPH SOLN 2.5 ML BTL OPB SCH (21:05)
[2022-12-09] MEDS: DORZOLAMIDE/TIMOLOL 22.3/6.8MG/ML 10 ML BTL OPB SCH (21:05)
[2022-12-09] MEDS: tiZANidine HCL 4 MG TABLET PO PRN (21:06)
[2022-12-09] MEDS ORDERED: GABAPENTIN 100 MG CAP PO ONE (21:49)
[2022-12-09] MEDS: FENOFIBRATE NANOCRYSTALLIZED 145 MG TABLET PO SCH (23:20)
[2022-12-09] MEDS: ATENOLOL 25 MG TABLET PO SCH (23:20)
[2022-12-09] MEDS: ATORVASTATIN 20 MG TAB PO SCH (23:21)
[2022-12-10] MEDS: HYDROmorphone INJ 1 MG/ML SYRINGE IV PRN ×4 (01:54→22:13)
[2022-12-10] MEDS: ACETAMINOPHEN 325 MG TAB PO PRN (03:11)
[2022-12-10] MEDS ORDERED: oxyCODONE/ACETAMINOPHEN 5mg/325mg TAB PO PRN ×2 (03:57→04:36)
[2022-12-10] MEDS ORDERED: HYDROmorphone INJ 0.5 MG/0.5 ML SYR IV PRN (04:36)
[2022-12-10] MEDS ORDERED: HYDROmorphone INJ 1 MG/ML SYRINGE IV PRN (04:36)
--- NOTE | 2022-12-10 07:19 | Hospitalist Progress Note ---
Date of Service December 10, 2022 Assessment & Plan (1) Buttock pain: Plan: Post-operative back pain - Left lower extremity radiculopathy, ambulatory dysfunction. Multifactorial with recent lumbar decompression/fusion, with superimposed sciatica/piriformis syndrome - s/p lumbar decompression/fusion/hardware placement with Dr. Herndon 12/04/2022 recently discharged 12/07/2022 Hold home tramadol - Tylenol scheduled every 8 hours, lidocaine patch daily, continue tizanidine twice daily as needed, hydrocodone scaled for breakthrough. Convert Tylenol and hydrocodone to [place] when able and more reasonable pain control achieved. - Gabapentin added in hopes in would help with neuropathic pain PT/OT Left hip pelvis/x-ray with degenerative changes - XR lumbar spine/sacrum - Consult ortho DM2 Weight-based basal bolus Goal BSG [id number] Hold home Jardiance/metformin - [facility] consulted for assistance with adjustments while on steroids HLD Atorvastatin 20 mg p.o. at bedtime, fenofibrate HTN Continue atenolol 25 mg every afternoon (2) Postoperative back pain: (3) Anxiety: (4) Diabetes mellitus, type 2: (5) Hypertension: (6) Hyperlipidemia: Plan DVT prophylaxis: SCDs Diet: DM 2 CODE STATUS: Full code Admission and Anticipated Discharge Date Admission Date: December 09, 2022 Supervising Physician Co-Signing Physician Notes ATTESTATION I also saw the patient and confirmed brar portions of the history and exam. I agree with the impression and plan in the resident documentation, and as summarized below. Upon our late morning exam, the patient was actually seen in the hallway outside of her room. She was standing with the use of a four-point walker. She explained that standing was actually more comfortable than being seated or lying in bed. EXAM 144/79, 50, 16, 36.9, 95% room air Alert and oriented. Heart regular Respirations nonlabored DATA Labs White blood cell count 17.38, hemoglobin 13.7, platelet count 477 Sodium 133, potassium 3.9, chloride 97, CO2 28, BUN 22, creatinine 0.74 Imaging Single view of the left hip shows no fracture or dislocation. IMPRESSION & PLAN Back pain, postoperative Left lower extremity radiculopathy with ambulatory dysfunction, status post recent lumbar decompression/fusion Patient was started on IV steroids, Neurontin upon admission PT consult Recommend plain films of the lumbar/sacral spine Consult orthopedics Additional per resident documentation Subjective Pain in left lumbar spine and hip that radiates down posterior left leg. Better standing. Worse sitting, hard to find a comfortable position. Notes numbness in left foot that has been present since surgery. Able to ambulate with walker. Review of Systems Review of Systems: As per above Physical Exam Physical Exam: Constitutional: well-appearing, no acute distress HEENT: NCAT, no conjunctival injection CV: regular rhythm, no murmur appreciated, extremities well-perfused, no LE edema Resp: CTABL, no wheezes/rales/rhonchi appreciated, no increased work of breathing MSK: no gross deformities appreciated, 5/5 LE strength Skin: surgical scar will healing without erythema or discharge Neuro: alert, oriented, no focal neurologic deficit appreciated Results & Data Results & Data Vital Signs (Past 12 Hours) Vital Signs Temp Pulse Resp BP Pulse Ox O2 Del Method 12/09/22 19:15 Room Air 12/09/22 21:48 36.8 C 88 16 145/80 H 99 Room Air 12/09/22 20:59 36.8 C 90 136/85 98 Room Air Resident Activity Tracking Resident Involvement: Resident Care Provided Care Provided: Adult Hospital Medicine
[2022-12-10] MEDS: GABAPENTIN 100 MG CAP PO SCH ×2 (07:39→21:49)
[2022-12-10] MEDS: tiZANidine HCL 4 MG TABLET PO PRN ×2 (07:39→18:42)
[2022-12-10] MEDS: LIDOCAINE 5% 1 PATCH TD SCH (07:39)
[2022-12-10] MEDS: ONDANSETRON INJ 2 MG/ML 2 ML VIAL IV PRN ×3 (07:40→22:55)
[2022-12-10] MEDS: DORZOLAMIDE/TIMOLOL 22.3/6.8MG/ML 10 ML BTL OPB SCH ×2 (07:48→22:01)
[2022-12-10] MEDS: INSULIN ASPART PER UNIT CHARGE SC SCH ×4 (08:51→21:27)
[2022-12-10] MEDS: lisinopril 20 MG TAB PO SCH (08:51)
[2022-12-10] MEDS ORDERED: methylPREDNISolone 40 MG in SYRINGE 0 ML IV SCH (09:00)
[2022-12-10] MEDS ORDERED: LANTUS PER UNIT CHARGE SQ ONE (09:00)
[2022-12-10 09:26] LABS: Basophils # (auto) 0.08 K/uL (0-0.2); Basophils % (auto) 0.5 %; Eosinophils # (auto) 0.11 K/uL (0-0.50); Eosinophils % (auto) 0.6 %; Hematocrit (blood only) 41.4 % (37.0-47.0); Hemoglobin 13.7 g/dl (12.0-16.0); Immature Granulocytes # (auto) 0.15 K/uL (0.01-0.20); Immature Granulocytes % (auto) 0.9 %; Lymphocytes # (auto) 3.23 K/uL (1.2-3.4); Lymphocytes % (auto) 18.6 %; Mean Corpuscular Hemoglobin 29.7 pg (25.0-34.0); Mean Corpuscular Hgb Conc 33.1 g/dL (32.0-36.0); Mean Corpuscular Volume 89.8 fL (80.0-100.0); Mean Platelet Volume 9.3 fL (9.4-12.4); Monocytes # (auto) 0.87 K/uL (0.11-0.59); Neutrophils # (auto) 12.94 K/uL (1.40-6.50); Neutrophils % (auto) 74.4 %; Platelet Count 477 K/uL (130-400); RDW Coefficient of Variation 14.4 % (11.5-14.5); RDW Standard Deviation 46.7 fL (36.4-46.3); Red Blood Count 4.61 M/uL (4.20-5.40); White Blood Count 17.38 K/ul (4.8-10.8)
[2022-12-10 09:45] LABS: Anion Gap 8 (3-11); BUN Creatinine Ratio 29.7 (10-20); Blood Urea Nitrogen 22 mg/dl (6-23); Carbon Dioxide 28 mmol/L (21-32); Chloride 97 mmol/L (98-107); Creatinine Clr Calc Pharmacy 78.8 ml/min; Est GFR (African American) 104.2 ml/min; Est GFR (Non-African American) 89.9 ml/min; Glucose 152 mg/dl (70-99(Fasting)); Sodium 133 mmol/L (136-145)
[2022-12-10] MEDS: ACETAMINOPHEN 500 MG TAB PO SCH ×2 (12:24→19:49)
--- NOTE | 2022-12-10 14:56 | XRay Report ---
XR lumbar spine 2-3V CLINICAL HISTORY: Increased post operative pain TECHNIQUE: 3 views of the lumbar spine were obtained. Comparison: Comparison is made to lumbar spine radiographs 12/03/2022 FINDINGS: Posterior fixation hardware spans L4-S1. Cholecystectomy clips are seen. Degenerative changes are see n in the lumbar spine. The alignment is normal. Vascular calcifications are noted. IMPRESSION: Degenerative changes as above without acute fracture or subluxation. ACT 112: Negative or not required by law. Electronically signed by: Edd Alejo M.D. 12/10/2022 2:55 PM
--- NOTE | 2022-12-10 14:58 | XRay Report ---
XR sacrum only CLINICAL HISTORY: Increased postertive pain TECHNIQUE: 2 views of the sacrococcygeal spine were obtained. Comparison: None available at the time of this dictation. FINDINGS/IMPRESSION: No acute fractures are seen. Degenerative changes are noted. ACT 112: Negative or not required by law. Electronically signed by: Edd Alejo M.D. 12/10/2022 2:57 PM
[2022-12-10] MEDS: oxyCODONE HCL IR 5 MG TAB (IMMEDIATE RELEASE) PO PRN ×2 (17:42→21:44)
[2022-12-10] MEDS: HYDROmorphone INJ 0.5 MG/0.5 ML SYR IV PRN (18:42)
[2022-12-10] MEDS ORDERED: LORazepam 1 MG TAB PO STA (20:11)
[2022-12-10] MEDS: ATENOLOL 25 MG TABLET PO SCH (22:00)
[2022-12-10] MEDS: TRAVOPROST Z 0.004% OPH SOLN 2.5 ML BTL OPB SCH (22:00)
[2022-12-10] MEDS: ATORVASTATIN 20 MG TAB PO SCH (22:01)
[2022-12-10] MEDS: FENOFIBRATE NANOCRYSTALLIZED 145 MG TABLET PO SCH (22:02)
[2022-12-10] MEDS ORDERED: LORazepam 2 MG/1 ML VIAL IV PRN (22:53)
[2022-12-10] MEDS ORDERED: GADOBUTROL 7.5ML VIAL IV ONE (23:56)
[2022-12-11 00:47] LABS: Basophils # (auto) 0.05 K/uL (0-0.2); Basophils % (auto) 0.3 %; Eosinophils # (auto) 0.07 K/uL (0-0.50); Eosinophils % (auto) 0.5 %; Hemoglobin 13.2 g/dl (12.0-16.0); Immature Granulocytes # (auto) 0.11 K/uL (0.01-0.20); Immature Granulocytes % (auto) 0.7 %; Lymphocytes # (auto) 3.49 K/uL (1.2-3.4); Lymphocytes % (auto) 23.2 %; Mean Corpuscular Hemoglobin 29.7 pg (25.0-34.0); Mean Corpuscular Volume 90.1 fL (80.0-100.0); Mean Platelet Volume 9.3 fL (9.4-12.4); Monocytes # (auto) 0.96 K/uL (0.11-0.59); Monocytes % (auto) 6.4 %; Neutrophils # (auto) 10.35 K/uL (1.40-6.50); Neutrophils % (auto) 68.9 %; Platelet Count 459 K/uL (130-400); RDW Coefficient of Variation 14.1 % (11.5-14.5); RDW Standard Deviation 46.5 fL (36.4-46.3); Red Blood Count 4.44 M/uL (4.20-5.40); White Blood Count 15.03 K/ul (4.8-10.8)
[2022-12-11 01:00] LABS: BUN Creatinine Ratio 35.2 (10-20); C Reactive Protein 1.27 mg/dl (0-0.5); Calcium 9.4 mg/dl (8.6-10.3); Creatinine Clr Calc Pharmacy 82.1 ml/min; Est GFR (African American) 109.6 ml/min; Est GFR (Non-African American) 94.6 ml/min; Potassium 4.2 mmol/L (3.5-5.1)
--- NOTE | 2022-12-11 02:16 | Magnetic Resonance Report ---
Exam(s): MRI L SPINE W/WO Contrast IV Amt: 7.5cc gadavist EXAM: MR Lumbar Spine Without and With Intravenous Contrast CLINICAL HISTORY: Reason for exam: evaluate abscess/hematoma. TECHNIQUE: Magnetic resonance images of the lumbar spine without and with intravenous contrast in multiple planes. CONTRAST: Patient received 7.5cc gadavist of IV contrast COMPARISON: 12/03/2022. FINDINGS: Vertebrae: The patient status post posterior fusion from L4-S1. No acute fracture. Spinal cord: The spinal cord terminates at approximate T12-L1 level with normal signal in the visualized portion. No abnormal enhancement. Soft tissues: There is increased signal within the posterior paraspinal lesion with fluid collection extending from approximate L4-S1 level measuring approximately 5.7 cm in craniocaudal dimension by 3.0 x 3. 2 cm in axial dimension. This could represent postoperative seroma versus infectious process/abscess not entirely excluded. There is surrounding enhancement of the paraspinal musculature following contrast administration. DISCS/SPINAL CANAL/NEURAL FORAMINA: L1-L2: Unremarkable. No significant disc disease. No stenosis. L2-L3: Unremarkable. No significant disc disease. No stenosis. L3-L4: Mild hypertrophy of ligamentum flavum and facet complex. Mild diffuse posterior disc bulge. No spinal stenosis. No neuroforaminal encroachment. L4-L5: Broad-based central disc bulge. Mild narrowing of the thecal sac to approximate 6.5 mm. No significant neuroforaminal encroachment. L5-S1: Postoperative changes with no spinal stenosis or significant neuroforaminal encroachment. Mild multilevel disc desiccation throughout the lumbar spine with mild narrowing of disc height, more significant at L5-S1. IMPRESSION: 1. Postoperative changes with posterior fusion from L4-S1. Mild narrowing of the thecal sac at L4-L5 with mild broad-based central disc bulge. No epidural abscess seen. 2. Posterior paraspinal fluid collection measuring 3.0 x 2.2 x 5.7 cm suggestive of seroma with underlying infectious process or abscess not entirely excluded. Clinical correlation recommended. Surrounding paraspinal edema with mild enhancement which may indicate postoperative inflammatory or infectious process. Electronically signed by: Radha Rodríguez MD 12/11/22 02:15 AM
[2022-12-11] MEDS ORDERED: VANCOMYCIN CONSULT ACTIVE PRN (02:49)
[2022-12-11] MEDS ORDERED: VANCOMYCIN HCL 1,250 MG in SODIUM CHLORIDE 0.9% 500 ML IV SCH (03:00)
[2022-12-11] MEDS: HYDROmorphone INJ 1 MG/ML SYRINGE IV PRN ×6 (03:12→22:59)
[2022-12-11] MEDS: CEFEPIME 2,000 MG in SYRINGE 0 ML IV SCH ×3 (03:15→21:17)
[2022-12-11] MEDS ORDERED: VANCOMYCIN HCL 1,500 MG in SODIUM CHLORIDE 0.9% 500 ML IV ONE (03:15)
[2022-12-11] MEDS: ACETAMINOPHEN 1,000 MG/100 ML VIAL IV SCH ×3 (03:24→20:59)
--- NOTE | 2022-12-11 03:39 | Communication Note ---
Date of Service: December 11, 2022 I was informed of pt's intractable lower back pain refractory to opioid pain relief including Dilaudid. Upon my evaluation, she did report night sweats, chil ls and malaise which had been ongoing since evening of 12/09. Due to concern for potential spinal abscess/hematoma/postoperative complication, I did order several labs and MRI of lumbar spine. Labs demonstrated improvement in leukocytosis, other infectious markers unremarkable. MRI findings of posterior paraspinal fluid collection 3.0 x 2.2 x 5.7 cm suggestive of seroma with underlying infectious process/abscess not excluded, along with surrounding paraspinal edema with mild enhancement. Upon learning of pt's MRI results, I did order cefepime/vancomycin for broad spectrum coverage in the event of potential spinal abscess. Per discussion with nursing staff, orthopedics will be made aware with likely plans to take patient to OR in AM. Resident Activity Tracking Resident Involvement: Resident Care Provided Care Provided: Adult Hospital Medicine
[2022-12-11] MEDS ORDERED: Nursing to Pharmacy Communication SCH ×2 (07:15→17:45)
--- NOTE | 2022-12-11 07:44 | Hospitalist Progress Note ---
Date of Service December 11, 2022 Assessment & Plan (1) Buttock pain: Plan: Post-operative back pain - Left lower extremity radiculopathy, ambulatory dysfunction. - s/p lumbar decompression/fusion/hardware placement with Dr. Herndon 12/04/2022 recently discharged 12/07/2022 Hold home tramadol - Tylenol scheduled every 8 hours, lidocaine patch daily, continue tizanidine twice daily as needed, hydrocodone scaled for breakthrough. Convert Tylenol and hydrocodone to [place] when able and more reasonable pain control achieved. - Gabapentin added in hopes in would help with neuropathic pain PT/OT Left hip pelvis/x-ray with degenerative changes - MRI with Posterior paraspinal fluid collection measuring 3.0 x 2.2 x 5.7 cm suggestive of seroma with underlying infectious process or abscess not entirely excluded - started on vancomycin, cefepime - Ortho, consulted plan for repeat surgery today DM2 Weight-based basal bolus Goal BSG [id number] Hold home Jardiance/metformin - [facility] consulted for assistance with adjustments while on steroids HLD Atorvastatin 20 mg p.o. at bedtime, fenofibrate HTN Continue atenolol 25 mg every afternoon (2) Postoperative back pain: (3) Anxiety: (4) Diabetes mellitus, type 2: (5) Hypertension: (6) Hyperlipidemia: Plan DVT prophylaxis: SCDs Diet: DM 2 CODE STATUS: Full code Admission and Anticipated Discharge Date Admission Date: December 09, 2022 Supervising Physician Co-Signing Physician Notes I personally examined the patient and verified all brar points of history and exam, discussed case, and agree with decision making with Dr Hagan. pain uncontrolledmeds help when she takes it, but they wear off too quickly. For surgery later today Vitals noted. Laying still, appears somewhat uncomfortable. Breathing unlabored no accessory muscle use good effort. Skin shows no rashes no pallor or icterus. Postop fluid collection with radicular painDilaudid additional 1 mg now, then 1 mg every 2 hours as needed for nowfor surgery later. Otherwise as above. Subjective Pain similar to yesterday. Subjective fever/chills. Denies any new weakness/numbness. Still notes numbness in left foot. Review of Systems Review of Systems: As per above Physical Exam Physical Exam: Constitutional: well-appearing, no acute distress HEENT: NCAT, no conjunctival injection CV: regular rhythm, no murmur appreciated, extremities well-perfused, no LE edema Resp: CTABL, no wheezes/rales/rhonchi appreciated, no increased work of breathing MSK: no gross deformities appreciated, 5/5 LE strength Skin: surgical scar will healing without erythema or discharge Neuro: alert, oriented, no focal neurologic deficit appreciated Results & Data Results & Data Vital Signs (Past 12 Hours) Vital Signs Temp Pulse Pulse Resp BP Pulse Ox O2 Del Method 12/11/22 07:14 36.7 C 58 L 18 125/68 97 Room Air 12/10/22 21:40 Room Air 12/10/22 21:57 36.4 C L 52 L 16 136/81 99 Room Air Resident Activity Tracking Resident Involvement: Resident Care Provided Care Provided: Adult Hospital Medicine
[2022-12-11 08:12] LABS: Basophils # (auto) 0.07 K/uL (0-0.2); Basophils % (auto) 0.5 %; Eosinophils # (auto) 0.16 K/uL (0-0.50); Eosinophils % (auto) 1.2 %; Hematocrit (blood only) 39.4 % (37.0-47.0); Immature Granulocytes # (auto) 0.14 K/uL (0.01-0.20); Lymphocytes # (auto) 4.14 K/uL (1.2-3.4); Lymphocytes % (auto) 30.2 %; Mean Corpuscular Hemoglobin 29.4 pg (25.0-34.0); Mean Corpuscular Volume 89.1 fL (80.0-100.0); Mean Platelet Volume 9.4 fL (9.4-12.4); Monocytes # (auto) 0.89 K/uL (0.11-0.59); Monocytes % (auto) 6.5 %; Neutrophils % (auto) 60.6 %; Platelet Count 464 K/uL (130-400); RDW Coefficient of Variation 14.4 % (11.5-14.5); Red Blood Count 4.42 M/uL (4.20-5.40)
[2022-12-11] MEDS: GABAPENTIN 100 MG CAP PO SCH ×2 (08:32→20:51)
[2022-12-11] MEDS: lisinopril 20 MG TAB PO SCH (08:33)
[2022-12-11] MEDS: LIDOCAINE 5% 1 PATCH TD SCH (08:33)
[2022-12-11] MEDS: DORZOLAMIDE/TIMOLOL 22.3/6.8MG/ML 10 ML BTL OPB SCH ×2 (08:33→20:50)
[2022-12-11 08:46] LABS: BUN Creatinine Ratio 37.9 (10-20); Calcium 9.3 mg/dl (8.6-10.3); Creatinine Clr Calc Pharmacy 88.3 ml/min; Est GFR (African American) 113.7 ml/min; Est GFR (Non-African American) 98.1 ml/min; Potassium 4.1 mmol/L (3.5-5.1)
[2022-12-11] MEDS ORDERED: VANCOMYCIN HCL 1,000 MG in SODIUM CHLORIDE 0.9% 250 ML IV SCH (09:00)
[2022-12-11] MEDS ORDERED: predniSONE 20 MG TAB PO SCH (09:00)
[2022-12-11] MEDS ORDERED: HYDROmorphone INJ 1 MG/ML SYRINGE IV STA ×2 (09:14→12:09)
[2022-12-11] MEDS: LORazepam 1 MG TAB PO PRN ×2 (09:32→20:51)
[2022-12-11] MEDS: ONDANSETRON INJ 2 MG/ML 2 ML VIAL IV PRN (11:51)
--- NOTE | 2022-12-11 11:53 | Pharmacy Report ---
Pharmacy Glycemic Short Note 2 - Date of Service December 11, 2022 - Glycemic Short BSG Results (Last 24 hours): 12/10/22 12/10/22 12/10/22 11:55 17:04 20:37 Glucose POC Glucose 149 H 131 H 129 H 12/11/22 12/11/22 12/11/22 00:27 07:35 08:03 Glucose 115 H 114 H POC Glucose 113 H OUTPATIENT ANTIDIABETIC REGIMEN: * Jardiance 25 mg PO daily * Metformin 500 mg PO daily * HbA1c: 6.9% (12/04/22) ASSESSMENT: 12/11: * BSGs have been well-controlled. * Pt is NPO for OR today (for ?seroma/spinal abscess). Steroids have also been discontinued at this time. * Basal insulin was therefore discontinued this morning. * No additional changes are required at this time. 12/09 * RODRIGUEZ is a 57 year old female who presents to ED with postoperative back/buttock pain * POD #5 s/p lumbar decompression/fusion * During recent hospitalization, patient did not require aggressive insulin dosing despite IV dexamethasone * Ordered IV methylprednisolone 60 mg x 1 today, 40 mg IV daily ongoing starting tomorrow morning * Will utilize weight-based stress of 2 dosing with 0.1 unit/kg basal for now PLAN FOR INPATIENT GLYCEMIC CONTROL: * Hold outpatient oral diabetes medications * Basal insulin * none for now * Bolus insulin * NovoLog per scale ACHS or Q6hrs while NPO * Goal Range: Low 110 mg/dL - High 140 mg/dL * Correction Factor: 30 mg/dL/unit * Nutritional / Prandial insulin per carb ratio of 1 unit per 10 grams CHO consumed
--- NOTE | 2022-12-11 11:59 | Pharmacy Report ---
Pharmacy PK ABX Note - Date of Service December 11, 2022 - Assessment and Plan Assessment * Miss Gresham is a 57 year old F receiving vanc/cefepime for treatment of bone/joint infection, possible spinal abscess). * Pertinent microbiologic data includes: history of MRSA * Dose increased slightly this morning in light of improved SCr. Would prefer slightly higher target given the indication for therapy. Plan Vancomycin * Loading dose: 1500 mg IV x 1 * Maintenance dose: 1000 mg IV every 12 hours --> 1200mg IV q12h * Regimen is predicted to achieve target AUC/GEORGETTE of 400-600 mg/L.hr * Will evaluate a trough level closer to steady-state. Pharmacy will continue to follow and will adjust dose/frequency as necessary. Thank you. Pharmacy has transitioned to AUC monitoring for vancomycin. AUC/GEORGETTE is the preferred PK/PD target and is associated with decreased risk of nephrotoxicity compared to traditional trough targets.
[2022-12-11] MEDS: INSULIN ASPART PER UNIT CHARGE SC SCH ×3 (12:16→21:09)
[2022-12-11] MEDS ORDERED: ROCURONIUM BROMIDE 10 MG/ML 5 ML VIAL IV ONE (14:01)
[2022-12-11] MEDS ORDERED: fentaNYL citrate PF 100 MCG/2 ML VIAL ONE (14:01)
[2022-12-11] MEDS ORDERED: MIDAZOLAM HCL 1 MG/ML 2ML VIAL ONE (14:01)
[2022-12-11] MEDS ORDERED: PROPOFOL IV EMULSION 10 MG/ML 20 ML VIAL IV ONE (14:01)
[2022-12-11] MEDS ORDERED: LIDOCAINE 2% 2 ML VIAL/AMP(20MG/ML) INFIL ONE (14:01)
[2022-12-11] MEDS ORDERED: DEXAMETHASONE SOD INJ 4 MG/ML VIAL ONE (14:01)
[2022-12-11] MEDS ORDERED: ONDANSETRON INJ 2 MG/ML 2 ML VIAL ONE (14:01)
[2022-12-11] MEDS ORDERED: SUGAMMADEX SODIUM 200 MG/2 ML VIAL IV ONE (14:02)
--- NOTE | 2022-12-11 14:08 | Anesthesiology Consultation ---
Date of Service December 11, 2022 Assessment & Plan Chart Review Chart Review: Acceptable Risk for Surgery Consults Requested none History Surgery Operation Date: 12/11/22 08:20 Proposed Procedures p Incision and Drainage Seroma - Samir Herndon DO Height/Weight Height: 5 ft 1 in Weight: 77 kg Allergies Allergy/AdvReac Type Severity Reaction Status Date / Time No Known Allergies Allergy Verified 12/09/22 10:27 Medications Home Medications Medication Instructions Recorded Confirmed Last Taken atenolol 25 mg tablet 25 mg PO QPM 06/06/19 12/09/22 12/08/22 atorvastatin 20 mg tablet (Lipitor) 20 mg PO HS 06/06/19 12/09/22 12/08/22 cetirizine 10 mg tablet (Zyrtec) 10 mg PO QAM 06/06/19 12/09/22 12/08/22 fenofibrate nanocrystallized 145 145 mg PO HS 06/06/19 12/09/22 12/08/22 mg tablet lorazepam 1 mg tablet (Ativan) 1 mg PO HS PRN Anxiety 06/06/19 12/09/22 11/09/20 22:00 metformin 500 mg tablet 500 mg PO HS 06/06/19 12/09/22 12/08/22 travoprost 0.004 % eye drops 1 drp OPB HS 06/06/19 12/09/22 12/08/22 (Travatan Z) dorzolamide 22.3 mg-timolol 6.8 1 drp ophthalmic (eye) AMHS 11/02/20 12/09/22 12/08/22 mg/mL eye drops lisinopril 20 mg tablet 20 mg PO QAM 11/02/20 12/09/22 12/08/22 tizanidine 4 mg tablet 4 mg PO BID PRN muscle spasticity 10/06/22 12/09/22 Unknown #30 tabs acetaminophen 500 mg tablet 1,000 mg PO DIRECTED PRN 12/02/22 12/09/22 Unknown (Tylenol Extra Strength) PAIN/FEVER docusate sodium 100 mg capsule 100 mg PO DAILY 12/02/22 12/09/22 12/08/22 (Colace) empagliflozin 25 mg tablet 25 mg PO QAM 12/02/22 12/09/22 12/08/22 (Jardiance) oxycodone 5 mg tablet 5 mg PO Q6H PRN pain #30 tabs 12/05/22 12/09/22 Unknown tramadol 50 mg tablet 50 mg PO Q6H PRN pain, moderate 12/05/22 12/09/22 Unknown #30 tabs lidocaine 5 % topical patch 1 patch topical DAILY #15 ea 12/07/22 12/09/22 12/08/22 ondansetron HCl 4 mg tablet 4 mg PO QID PRN nausea and 12/07/22 12/09/22 Unknown vomiting #20 tabs Active Medications Generic Name Dose Route Start Last Admin Trade Name Freq PRN Reason Stop Dose Admin Atenolol 25 mg 12/09/22 21:00 12/10/22 22:00 Atenolol 25 Mg Tablet PO 01/08/23 20:59 Not Given QPM RUTH Atorvastatin Calcium 20 mg 12/09/22 21:00 12/10/22 22:01 Atorvastatin 20 Mg Tab PO 01/08/23 20:59 Not Given HS RUTH Dorzolamide/Timolol 1 drops 12/09/22 21:00 12/11/22 08:33 Dorzolamide/Timolol 22.3/6.8mg/Ml 10 Ml Btl OPB 01/08/23 20:59 Not Given AMHS RUTH Fenofibrate 145 mg 12/09/22 21:00 12/10/22 22:02 Fenofibrate Nanocrystallized 145 Mg Tablet PO 01/08/23 20:59 Not Given HS RUTH Gabapentin 100 mg 12/09/22 13:01 12/11/22 08:32 Gabapentin 100 Mg Cap PO 01/08/23 13:00 100 mg BID RUTH Administration Hydromorphone HCl 0.5 mg 12/10/22 09:39 12/10/22 18:42 Hydromorphone Inj 0.5 Mg/0.5 Ml Syr IV 12/23/22 13:00 0.5 mg Q4H PRN Administration Pain (7-8) Acetaminophen 1,000 mg in 100 mls @ 400 mls/hr 12/11/22 04:00 12/11/22 12:15 Ofirmev IV 12/14/22 03:59 Infused Q8H RUTH Infusion Cefepime HCl 2,000 mg/ Syringe 20 mls @ 5 mls/min 12/11/22 03:00 12/11/22 11:51 IV 01/22/23 02:59 5 mls/min Q8H RUTH Administration Protocol Insulin Aspart 0 units 12/11/22 12:00 12/11/22 12:16 Insulin Aspart Per Unit Charge SC 01/08/23 13:29 Not Given Q6 RUTH Lidocaine 1 patch 12/09/22 13:01 12/11/22 08:33 Lidocaine 5% 1 Patch TD 01/08/23 13:00 Not Given QAM RUTH Lisinopril 20 mg 12/10/22 09:00 12/11/22 08:33 Lisinopril 20 Mg Tab PO 01/09/23 08:59 Not Given QAM RUTH Lorazepam 1 mg 12/11/22 09:14 12/11/22 09:32 Lorazepam 1 Mg Tab PO 01/10/23 09:13 1 mg Q6 PRN Administration Anxiety Miscellaneous 1 each 12/09/22 21:00 12/10/22 22:02 Remove Lidoderm Patch N/A 01/08/23 20:59 1 each DAILY@2100 RUTH Administration Ondansetron HCl 4 mg 12/10/22 12:55 12/11/22 11:51 Ondansetron Inj 2 Mg/Ml 2 Ml Vial IV 01/09/23 12:54 4 mg Q6H PRN Administration Nausea Oxycodone HCl 5 mg 12/10/22 10:00 12/10/22 21:44 Oxycodone Hcl Ir 5 Mg Tab (Immediate Release) PO 12/24/22 09:59 5 mg Q4 PRN Administration Pain (3-6) Tizanidine HCl 4 mg 12/09/22 13:01 12/10/22 18:42 Tizanidine Hcl 4 Mg Tablet PO 01/08/23 13:00 4 mg BID PRN Administration muscle spasticity Travoprost 1 drops 12/09/22 21:00 12/10/22 22:00 Travoprost Z 0.004% Oph Soln 2.5 Ml Btl OPB 01/08/23 20:59 Not Given HS RUTH NPO Date Last Intake of Fluids: 12/10/22 Time Last Intake of Fluids: 21:00 Last Intake of Fluids Comment: 0940 sip with pill Date Last Intake of Solids: 12/10/22 Time Last Intake of Solids: 17:30 Past Medical History Medical History Anxiety Diabetes mellitus, type 2 Elevated platelet count FOLLOWS HEMATOLOGY (BEING MONITORED) Glaucoma Hx of colonic polyps Hyperlipidemia Hypertension Past Family History Family History Grandmother (Maternal) Diabetes Family history of diabetes mellitus Mother Family history of diabetes mellitus Other No family history of adverse response to anesthesia Past Surgical History Surgical History History of cardiac cath 7 YRS AGO @ [facility] > FOR CHEST PAIN > NO STENTS History of section X 1 History of cholecystectomy History of colonoscopy History of dilatation and curettage History of endoscopic sinus surgery History of tooth extraction Social History Smoking Status: Former smoker tobacco type: cigarettes Smoking cigarettes per day: 10 Do You Dip or Chew Tobacco: No Smoking End Date: 11/2022 Hx Alcohol Use: Yes alcohol intake frequency: holidays/special occasions only Hx Substance Use: No substance use type: does not use Physical Exam Vital Signs Last Vital Signs Temp 36.7 C 12/11/22 13:11 Pulse 63 12/11/22 13:11 Resp 18 12/11/22 13:11 BP 142/86 H 12/11/22 13:11 Pulse Ox 98 12/11/22 13:11 O2 Del Method Room Air 12/11/22 13:11 Testing Laboratory Results 12/11/22 07:35 12/11/22 07:35 12/11/22 12/11/22 12:15 08:03 POC Glucose 116 H 113 H
[2022-12-11] MEDS ORDERED: PROMETHAZINE HCL 12.5 MG in SODIUM CHLORIDE 0.9% 50 ML IV PRN (14:10)
[2022-12-11] MEDS ORDERED: ONDANSETRON INJ 2 MG/ML 2 ML VIAL IV PRN (14:10)
[2022-12-11] MEDS ORDERED: ATROPINE SULFATE 0.1 MG/ML 10ML SYR IV PRN (14:10)
[2022-12-11] MEDS ORDERED: ePHEDrine sulfate 50 MG/ML AMP IV PRN (14:10)
--- NOTE | 2022-12-11 14:10 | History & Physical Bridge Note ---
Date of Service December 11, 2022 History & Physical Bridge Note I have examined the patient, reviewed the History & Physical and in the interval since the performance of the History & Physical I have noted the following changes of clinical significance: no changes noted Irrigation debridement lumbar spine with exploration of fusion
--- NOTE | 2022-12-11 14:10 | Orthopedic Consultation ---
Date of Consultation December 11, 2022 Assessment & Plan (1) Postoperative back pain: MRI lumbar spine does demonstrate evidence of fluid collection with evidence of neural compression. In light of her presentation and decline in status and recommending urgent irrigation debridement of the lumbar spine and exploration of fusion. History of Present Illness Reason for Consultation: Back and bilateral leg pain Attending Physician: Timothy Moser DO History of Present Illness This is a 57-year-old female well-known to the status post lumbar decompression fusion presents with worsening back and bilateral leg pain. She notes symptoms probably on the left side. Also involves the lateral thighs bilaterally. It is quite incapacitating nature and she is been unable to sit or ambulate any distance. This is a marked decline from immediate postoperative status. Allergies Allergy/AdvReac Type Severity Reaction Status Date / Time No Known Allergies Allergy Verified 12/09/22 10:27 Home Medications Medication Instructions Recorded Confirmed Type atenolol 25 mg tablet 25 mg PO QPM 06/06/19 12/09/22 History atorvastatin 20 mg tablet (Lipitor) 20 mg PO HS 06/06/19 12/09/22 History cetirizine 10 mg tablet (Zyrtec) 10 mg PO QAM 06/06/19 12/09/22 History fenofibrate nanocrystallized 145 145 mg PO HS 06/06/19 12/09/22 History mg tablet lorazepam 1 mg tablet (Ativan) 1 mg PO HS PRN Anxiety 06/06/19 12/09/22 History metformin 500 mg tablet 500 mg PO HS 06/06/19 12/09/22 History travoprost 0.004 % eye drops 1 drp OPB HS 06/06/19 12/09/22 History (Travatan Z) dorzolamide 22.3 mg-timolol 6.8 1 drp ophthalmic (eye) AMHS 11/02/20 12/09/22 History mg/mL eye drops lisinopril 20 mg tablet 20 mg PO QAM 11/02/20 12/09/22 History tizanidine 4 mg tablet 4 mg PO BID PRN muscle spasticity 10/06/22 12/09/22 Rx #30 tabs acetaminophen 500 mg tablet 1,000 mg PO DIRECTED PRN 12/02/22 12/09/22 History (Tylenol Extra Strength) PAIN/FEVER docusate sodium 100 mg capsule 100 mg PO DAILY 12/02/22 12/09/22 History (Colace) empagliflozin 25 mg tablet 25 mg PO QAM 12/02/22 12/09/22 History (Jardiance) oxycodone 5 mg tablet 5 mg PO Q6H PRN pain #30 tabs 12/05/22 12/09/22 Rx tramadol 50 mg tablet 50 mg PO Q6H PRN pain, moderate 12/05/22 12/09/22 Rx #30 tabs lidocaine 5 % topical patch 1 patch topical DAILY #15 ea 12/07/22 12/09/22 Rx ondansetron HCl 4 mg tablet 4 mg PO QID PRN nausea and 12/07/22 12/09/22 Rx vomiting #20 tabs Patient History Medical History Anxiety Diabetes mellitus, type 2 Elevated platelet count FOLLOWS HEMATOLOGY (BEING MONITORED) Glaucoma Hx of colonic polyps Hyperlipidemia Hypertension Surgical History History of cardiac cath 7 YRS AGO @ [facility] > FOR CHEST PAIN > NO STENTS History of section X 1 History of cholecystectomy History of colonoscopy History of dilatation and curettage History of endoscopic sinus surgery History of tooth extraction Family History Grandmother (Maternal) Diabetes Family history of diabetes mellitus Mother Family history of diabetes mellitus Other No family history of adverse response to anesthesia Social History Smoking Status: Former smoker Tobacco Type: Cigarettes Cigarettes Per Day: 10; Second Hand Exposure: Yes (IN THE PAST); Do You Dip or Chew Tobacco: No; Hx Alcohol Use: Yes Hx Substance Use: No Preferred Language: [place] Communication Ability: Effective Boom Worker Required: No Beliefs That Will Affect Care: None Current Living Situation: Spouse and Family Current Living Situation Comment: Lives with and step son Feels Safe at Home: Yes Assistive Devices: Walker Physical Exam Physical Exam: On physical exam she was comfortable lying supine. She has tenderness palpation of bilateral IT band and trochanteric regions. She significant tension signs straight leg raising on the left. She does have a 4 5 left dorsiflexion extensor houses longus on the left compared to 5 5 on the right. Sensory appears to be intact to cold and light touch. Results & Data Vital Signs (Past 12 Hours) Vital Signs Temp Pulse Pulse Resp BP Pulse Ox O2 Del Method 12/11/22 13:11 36.7 C 63 18 142/86 H 98 Room Air 12/11/22 07:55 36.7 C 56 L 12 126/80 95 Room Air 12/11/22 07:14 36.7 C 58 L 18 125/68 97 Room Air
[2022-12-11] MEDS ORDERED: BUPIVACAINE/EPINEPHRINE 0.25% 1:200,000 30 ML VIAL ONE (14:20)
[2022-12-11] MEDS ORDERED: ceFAZolin 330 MG/ML 1 GM VIAL ONE ×2 (14:21→15:15)
[2022-12-11] MEDS ORDERED: GENTAMICIN SULFATE 40 MG/ML 2 ML VIAL ONE (14:59)
[2022-12-11] MEDS ORDERED: VANCOMYCIN HCL 1000MG/20ML VIAL ONE (15:00)
--- NOTE | 2022-12-11 15:32 | Operative Report ---
Post Operative Report Pre & Post Diagnosis Operation Date: 12/11/22 08:20 Pre-Op Diagnosis: LLE WEAKNESS, NEUROPATHY, AMBULATORY DYSFUNCTION Post-Op Diagnosis: LLE WEAKNESS, NEUROPATHY, AMBULATORY DYSFUNCTION I identified the patient and participated in the time-out.: Yes Procedure Operation Date: 12/11/22 08:20 Actual Procedures #1 irrigation debridement of hematoma. #2 revision decompression L5-S1. Surgeon Samir Herndon, Hourly Team Members Ruchi Pineda Estimated Blood Loss 20 Findings Consistent with Post-Op Diagnosis Specimens None Indications This is a 57-year-old female that presents status post lumbar decompression fusion with marked plan status with worsening leg pain and evidence of hematoma/seroma/abscess on MRI. Description of Procedure Patient was met with identified informed consent obtained. Patient was then taken to the operative suite underwent a patient placed in a prone position on Jalil table top Surjit frame. All bony prominences well-padded eyes inspected to ensure no external pressure placed upon them. This point the lumbar spine was prepped and draped in normal sterile fashion. Utilizing the previous incision site sharp dissection formed down to and opening the fascial layer. Evidence of a large hematoma was noted in the perioperative bed. It was evacuated in its entirety with several liters of antibiotic saline. I then performed a revision laminotomy complete facetectomy L5-S1 on the left to ensure complete decompression of the exiting root. I then explored the hardware noting it to be intact no evidence of any loosening. Approximate 5 cc of Stimulan beads impregnated with vancomycin gentamicin and then placed throughout the incision. 15 round CHRISTOPHER drain inserted. The incision was then closed with 1 Vicryl the fascia 2-0 Vicryl subcutaneously and 4 Monocryl for final skin closure. Steri-Strips and sterile dressing placed. Patient awakened taken to PACU stable condition. Please note spinal cord monitoring was utilized at the procedure no changes noted and Ruchi Pineda is present at the entire surgeon while the patient positioning complex portion of the surgery and final skin closure. I attest to the content of the Intraoperative Record and any orders documented therein. Any exceptions are noted below.
[2022-12-11] MEDS: fentaNYL citrate PF 100 MCG/2 ML VIAL IV PRN ×4 (15:51→16:12)
--- NOTE | 2022-12-11 16:01 | Fluoroscopy Report ---
FL lumbar spine 2-3V CLINICAL HISTORY: Incision and drainage with POSSIBLE REVISE INSTRUMENTATION COMPARISON STUDY: Lumbar spine MRI 12/10/2022. FLUOROSCOPY TIME: 6 seconds FLUOROSCOPY IMAGES: 2 Ka,r: 4.7 mGy FINDINGS: There is again noted L4-S1 pedicle screws and rods. The hardware appears intact. A disc spa cer at L5-S1 remains in place. IMPRESSION: Fluoroscopic assistance provided for incision and drainage within the lower lumbar spine. ACT 112: Negative or not required by law. Electronically signed by: Celestino Palma M.D. 12/11/2022 4:00 PM
[2022-12-11] MEDS: HYDROmorphone INJ 2 MG/ML SYR/VIAL IV PRN ×4 (16:18→16:36)
--- NOTE | 2022-12-11 17:21 | Anesthesiology Progress Note ---
Date of Service December 11, 2022 Anesthesia Post Procedure Vital Signs Vital Signs: Temp Pulse Pulse Pulse Resp BP Pulse Ox 12/11/22 17:05 91 H 12 125/84 95 12/11/22 16:55 90 14 167/75 H 97 12/11/22 16:45 99.0 F 84 12 137/66 97 12/11/22 16:35 97 H 12 161/81 H 98 12/11/22 16:25 96 H 12 156/80 H 96 12/11/22 16:15 79 16 148/78 H 100 12/11/22 16:05 83 12 160/79 H 99 12/11/22 15:55 83 21 168/89 H 99 12/11/22 15:47 97.9 F 80 16 166/69 H 100 12/11/22 13:11 98.1 F 63 18 142/86 H 98 12/11/22 07:55 98.1 F 56 L 12 126/80 95 12/11/22 07:14 98.1 F 58 L 18 125/68 97 12/10/22 21:40 12/10/22 21:57 97.5 F L 52 L 16 136/81 99 O2 Del Method O2 Flow Rate 12/11/22 17:05 Nasal Cannula 2 12/11/22 16:55 Nasal Cannula 2 12/11/22 16:45 Nasal Cannula 2 12/11/22 16:35 Nasal Cannula 2 12/11/22 16:25 Oxymask 2 12/11/22 16:15 Oxymask 5 12/11/22 16:05 Oxymask 5 12/11/22 15:55 Oxymask 9 12/11/22 15:47 Oxymask 9 12/11/22 13:11 Room Air 12/11/22 07:55 Room Air 12/11/22 07:14 Room Air 12/10/22 21:40 Room Air 12/10/22 21:57 Room Air Pain Intensity Back: Pain Intensity: 8 Left Leg: Pain Intensity: 4 Transfer of Care Handoff Completed per policy Notes Mental Status: alert / awake / arousable and participated in evaluation Patient Amnestic to Procedure: Yes Nausea / Vomiting: adequately controlled Pain: adequately controlled Airway Patency, RR, SpO2: stable & adequate BP & HR: stable & adequate Hydration State: stable & adequate Anesthetic Complications: no major complications apparent and Pt Satisfied with anesthetic care
--- NOTE | 2022-12-11 19:02 | Billing Data ---
Date of Service December 11, 2022 Coding Level of Care Code 76529 SUB INP/OBS CARE
--- NOTE | 2022-12-11 19:02 | Billing Data ---
Date of Service December 11, 2022 Coding Level of Care Code 01049 SUB INP/OBS CARE
[2022-12-11] MEDS: ATORVASTATIN 20 MG TAB PO SCH (20:50)
[2022-12-11] MEDS: ATENOLOL 25 MG TABLET PO SCH (20:50)
[2022-12-11] MEDS: TRAVOPROST Z 0.004% OPH SOLN 2.5 ML BTL OPB SCH (20:51)
[2022-12-11] MEDS: FENOFIBRATE NANOCRYSTALLIZED 145 MG TABLET PO SCH (20:51)
[2022-12-11] MEDS: tiZANidine HCL 4 MG TABLET PO PRN (20:52)
[2022-12-11] MEDS: VANCOMYCIN HCL 1,250 MG in SODIUM CHLORIDE 0.9% 250 ML IV SCH (21:23)
[2022-12-12] MEDS: HYDROmorphone INJ 1 MG/ML SYRINGE IV PRN ×3 (03:48→08:48)
[2022-12-12] MEDS: CEFEPIME 2,000 MG in SYRINGE 0 ML IV SCH ×2 (03:56→11:29)
[2022-12-12] MEDS: ACETAMINOPHEN 1,000 MG/100 ML VIAL IV SCH ×3 (04:00→20:00)
--- NOTE | 2022-12-12 07:22 | Hospitalist Progress Note ---
Date of Service December 12, 2022 Assessment & Plan (1) Buttock pain: Plan: Post-operative back pain - Left lower extremity radiculopathy, ambulatory dysfunction. - s/p lumbar decompression/fusion/hardware placement with Dr. Herndon 12/04/2022 recently discharged 12/07/2022 Hold home tramadol - Tylenol scheduled every 8 hours, lidocaine patch daily, continue tizanidine twice daily as needed, hydrocodone scaled for breakthrough. - Increase gabapentin to 300mg qAM and 600mg qHS. PT/OT Left hip pelvis/x-ray with degenerative changes - MRI with Posterior paraspinal fluid collection measuring 3.0 x 2.2 x 5.7 cm suggestive of seroma with underlying infectious process or abscess not entirely excluded - Post-op day 1; large hematoma drained - continue vancomycin, cefepime - Ortho, consulted DM2 Weight-based basal bolus Goal BSG [id number] Hold home Jardiance/metformin Pharmacy consulted for assistance with adjustments while on steroids - Lantus 8 units daily, NovoLog with CF= 30 and Carb ratio= 10 HLD Atorvastatin 20 mg p.o. at bedtime, fenofibrate HTN Continue atenolol 25 mg every afternoon (2) Postoperative back pain: (3) Anxiety: (4) Diabetes mellitus, type 2: (5) Hypertension: (6) Hyperlipidemia: Plan DVT prophylaxis: SCDs Diet: DM 2 CODE STATUS: Full code Admission and Anticipated Discharge Date Admission Date: December 11, 2022 Supervising Physician Co-Signing Physician Notes I personally examined the patient and verified all brar points of history and exam, discussed case, and agree with decision making with Dr Hagan. Tried p.o. pain medshelped some but not enough yet. Notes that she did better with IVs. Also discussed that with her nerve irritation, it may take a while for pain to, increasing control, and she agrees that it would be reasonable to build a pain regimen that might have a little bit more ability to be used for the intermediate term than simply acute narcotics alone. Vitals noted, in general she is awake and alert sitting in a chair no distress. HEENT normocephalic atraumatic mucous membranes moist. Breathing unlabored no accessory muscle use good effort. Skin shows no rashes no pallor or icterus. Postop hematoma, lumbar radiculopathy with persistent radicular paincontinue acute pain controlfor now we will continue the ability to utilize IV narcotics given that p.o. was not helping enough, patient will try p.o. at her discretion to see if it helpsworking towards a plan of home. In the meantime given that it will probably take a little while for pain to come under better control overallwe discussed escalating gabapentin, and the risk/benefit thereoffor now will increase to 300 in the morning/600 at bedtime. Otherwise as above Subjective Resting comfortably this morning. Pain is similar to yesterday, still pretty uncombable when trying to sit up. Hard to find a comfortable position. Did notes numbness to left foot,unchanged from prior. Review of Systems Review of Systems: As per above Physical Exam Physical Exam: Constitutional: well-appearing, no acute distress HEENT: NCAT, no conjunctival injection CV: regular rhythm, no murmur appreciated, extremities well-perfused, no LE edema Resp: no increased work of breathing MSK: no gross deformities appreciated Neuro: alert, oriented, no focal neurologic deficit appreciated Results & Data Results & Data Vital Signs (Past 12 Hours) Vital Signs Temp Pulse Resp BP Pulse Ox O2 Del Method 12/12/22 04:01 36.6 C 64 16 144/77 H 97 Room Air 12/12/22 00:37 36.8 C 66 14 105/66 95 Room Air 12/11/22 20:40 36.7 C 91 H 16 137/81 95 Room Air 12/11/22 19:40 36.8 C 95 H 16 145/78 H 98 Room Air Resident Activity Tracking Resident Involvement: Resident Care Provided Care Provided: Adult Hospital Medicine
[2022-12-12 08:24] LABS: Basophils # (auto) 0.05 K/uL (0-0.2); Basophils % (auto) 0.3 %; Eosinophils # (auto) 0.01 K/uL (0-0.50); Eosinophils % (auto) 0.1 %; Hematocrit (blood only) 36.4 % (37.0-47.0); Immature Granulocytes % (auto) 0.7 %; Lymphocytes # (auto) 3.83 K/uL (1.2-3.4); Lymphocytes % (auto) 25.5 %; Mean Corpuscular Hemoglobin 29.6 pg (25.0-34.0); Mean Corpuscular Volume 89.9 fL (80.0-100.0); Mean Platelet Volume 9.3 fL (9.4-12.4); Monocytes # (auto) 0.89 K/uL (0.11-0.59); Monocytes % (auto) 5.9 %; Neutrophils # (auto) 10.14 K/uL (1.40-6.50); Neutrophils % (auto) 67.5 %; Platelet Count 436 K/uL (130-400); RDW Coefficient of Variation 14.3 % (11.5-14.5); RDW Standard Deviation 47.2 fL (36.4-46.3); Red Blood Count 4.05 M/uL (4.20-5.40); White Blood Count 15.02 K/ul (4.8-10.8)
[2022-12-12] MEDS: lisinopril 20 MG TAB PO SCH (08:26)
[2022-12-12] MEDS: DORZOLAMIDE/TIMOLOL 22.3/6.8MG/ML 10 ML BTL OPB SCH ×2 (08:26→21:32)
[2022-12-12] MEDS: dexAMETHasone 8 MG in SYRINGE 0 ML IV SCH (08:26)
[2022-12-12] MEDS: GABAPENTIN 100 MG CAP PO SCH (08:27)
[2022-12-12] MEDS: LIDOCAINE 5% 1 PATCH TD SCH (08:28)
[2022-12-12] MEDS: INSULIN ASPART PER UNIT CHARGE SC SCH ×4 (08:37→21:17)
[2022-12-12 08:43] LABS: BUN Creatinine Ratio 31.6 (10-20); Calcium 9.4 mg/dl (8.6-10.3); Creatinine Clr Calc Pharmacy 102.2 ml/min; Est GFR (African American) 119.3 ml/min; Est GFR (Non-African American) 102.9 ml/min; Potassium 4.1 mmol/L (3.5-5.1)
[2022-12-12] MEDS: ONDANSETRON INJ 2 MG/ML 2 ML VIAL IV PRN (08:48)
[2022-12-12] MEDS: VANCOMYCIN HCL 1,250 MG in SODIUM CHLORIDE 0.9% 250 ML IV SCH (08:49)
[2022-12-12] MEDS: LORazepam 1 MG TAB PO PRN ×2 (09:51→18:04)
--- NOTE | 2022-12-12 10:14 | Orthopedic Progress Note ---
Date of Service December 12, 2022 Assessment & Plan (1) Postoperative back pain: Plan: Patient's leg pain is somewhat improved. She is able to tolerate sitting. I discussed with her I would like her to sit for no longer than 30 minutes at a time. She may walk as tolerated. We will maintain the CHRISTOPHER drain for another day. From an orthopedic standpoint I do not believe she needs any further IV antibiotics. I will defer to medicine for final determination. Lastly I am going to trial Dilaudid p.o. to see if this is better for pain control and we can then discontinue IV medications. Admission and Anticipated Discharge Date Admission Date: December 11, 2022 Subjective Patient's back pain is controlled leg symptoms have improved. She is able to tolerate sitting. Physical Exam Physical Exam: On exam she is in the chair at the bedside. She has good strength testing. Results & Data Vital Signs (Past 12 Hours) Vital Signs Temp Pulse Resp BP Pulse Ox O2 Del Method 12/12/22 07:45 36.7 C 57 L 16 109/66 98 Room Air 12/12/22 04:01 36.6 C 64 16 144/77 H 97 Room Air 12/12/22 00:37 36.8 C 66 14 105/66 95 Room Air
[2022-12-12] MEDS: HYDROmorphone HCL 2 MG TAB PO PRN ×2 (11:29→17:52)
[2022-12-12] MEDS: tiZANidine HCL 4 MG TABLET PO PRN ×2 (11:29→21:31)
[2022-12-12] MEDS ORDERED: LANTUS PER UNIT CHARGE SQ ONE ×2 (12:30→17:00)
--- NOTE | 2022-12-12 12:47 | Pharmacy Report ---
Pharmacy Glycemic Short Note 2 - Date of Service December 12, 2022 - Glycemic Short BSG Results (Last 24 hours): 12/11/22 12/11/22 12/11/22 15:52 17:49 20:53 Glucose POC Glucose 114 H 112 H 147 H 12/12/22 12/12/22 12/12/22 08:05 08:12 12:09 Glucose 111 H POC Glucose 116 H 162 H OUTPATIENT ANTIDIABETIC REGIMEN: * Jardiance 25 mg PO daily * Metformin 500 mg PO daily * HbA1c: 6.9% (12/04/22) ASSESSMENT: 12/12: * Patient did not receive any insulin yesterday, possibly steroids pulled in OR yesterday * Fasting BSG 116 mg/dL - now ordered scheduled dexamethasone 8 mg iv daily * Poor PO intake at this time. Held basal this AM, however lunch BSG trending upward. Likely related to ongoing steroids. Will add small dose of basal insulin for today and daily thereafter to help cover steroid effects 12/11: * BSGs have been well-controlled. * Pt is NPO for OR today (for ?seroma/spinal abscess). Steroids have also been discontinued at this time. * Basal insulin was therefore discontinued this morning. * No additional changes are required at this time. 12/09 * RODRIGUEZ is a 57 year old female who presents to ED with postoperative back/buttock pain * POD #5 s/p lumbar decompression/fusion * During recent hospitalization, patient did not require aggressive insulin dosing despite IV dexamethasone * Ordered IV methylprednisolone 60 mg x 1 today, 40 mg IV daily ongoing starting tomorrow morning * Will utilize weight-based stress of 2 dosing with 0.1 unit/kg basal for now PLAN FOR INPATIENT GLYCEMIC CONTROL: * Hold outpatient oral diabetes medications * Basal insulin * 8 units daily with IV dexamethasone * Bolus insulin * NovoLog per scale ACHS or Q6hrs while NPO * Goal Range: Low 110 mg/dL - High 140 mg/dL * Correction Factor: 30 mg/dL/unit * Nutritional / Prandial insulin per carb ratio of 1 unit per 10 grams CHO consumed
[2022-12-12] MEDS: HYDROmorphone INJ 0.5 MG/0.5 ML SYR IV PRN ×2 (15:50→19:59)
--- NOTE | 2022-12-12 18:10 | Billing Data ---
Date of Service December 12, 2022 Coding Level of Care Code 65238 SUB INP/OBS CARE
[2022-12-12] MEDS: DOCUSATE SODIUM 100 MG CAP PO SCH (21:31)
[2022-12-12] MEDS: GABAPENTIN 600 MG TAB PO SCH (21:32)
[2022-12-12] MEDS: ATORVASTATIN 20 MG TAB PO SCH (21:32)
[2022-12-12] MEDS: FENOFIBRATE NANOCRYSTALLIZED 145 MG TABLET PO SCH (21:32)
[2022-12-12] MEDS: ATENOLOL 25 MG TABLET PO SCH (21:32)
[2022-12-12] MEDS: GABAPENTIN 300 MG CAP PO SCH (21:32)
[2022-12-12] MEDS: TRAVOPROST Z 0.004% OPH SOLN 2.5 ML BTL OPB SCH (21:33)
[2022-12-13] MEDS: HYDROmorphone INJ 1 MG/ML SYRINGE IV PRN (01:47)
[2022-12-13] MEDS: LORazepam 1 MG TAB PO PRN ×4 (02:01→22:30)
[2022-12-13] MEDS: HYDROmorphone HCL 2 MG TAB PO PRN ×4 (04:11→22:30)
[2022-12-13] MEDS: ACETAMINOPHEN 1,000 MG/100 ML VIAL IV SCH ×3 (04:11→21:12)
--- NOTE | 2022-12-13 07:06 | Hospitalist Progress Note ---
Date of Service December 13, 2022 Assessment & Plan (1) Buttock pain: Plan: Post-operative back pain - Left lower extremity radiculopathy, ambulatory dysfunction. - s/p lumbar decompression/fusion/hardware placement with Dr. Herndon 12/04/2022 recently discharged 12/07/2022 Hold home tramadol - Tylenol scheduled every 8 hours, lidocaine patch daily, continue tizanidine twice daily as needed, hydrocodone scaled for breakthrough with goal of transitioning from IV to oral today - Increase gabapentin to 300mg qAM and 600mg qHS. PT/OT Left hip pelvis/x-ray with degenerative changes - MRI with Posterior paraspinal fluid collection measuring 3.0 x 2.2 x 5.7 cm suggestive of seroma with underlying infectious process or abscess not entirely excluded - Post-op day 2; large hematoma drained - No further IV antibiotics - Ortho, consulted DM2 Weight-based basal bolus Goal BSG [id number] Hold home Jardiance/metformin Pharmacy consulted for assistance with adjustments while on steroids - Lantus 8 units daily, NovoLog with CF= 30 and Carb ratio= 10 HLD Atorvastatin 20 mg p.o. at bedtime, fenofibrate HTN Continue atenolol 25 mg every afternoon (2) Postoperative back pain: (3) Anxiety: (4) Diabetes mellitus, type 2: (5) Hypertension: (6) Hyperlipidemia: Plan DVT prophylaxis: SCDs Diet: DM 2 CODE STATUS: Full code Admission and Anticipated Discharge Date Admission Date: December 11, 2022 Supervising Physician Co-Signing Physician Notes I personally examined the patient and verified all brar points of history and exam, discussed case, and agree with decision making with Dr Hagan. Pain control improving, tolerating meds well. Hoping to be able to go home tomorrow. Vitals noted, in general she is awake and alert sitting in a chair no distress. HEENT normocephalic atraumatic mucous membranes moist. Breathing unlabored no accessory muscle use good effort. Skin shows no rashes no pallor or icterus. CBC, basic metabolic panel noted Postop hematoma, lumbar radiculopathy with persistent radicular painimproving. Escalate p.o. Dilaudid to 4 mg to more closely match the equivalent of the 1 mg IV that seems to be helping the most. Continue gabapentin 300 in the morning 600 at bedtime. Hospital bed prescription written. Hopefully home tomorrow. Subjective Overall pain is improving this morning. Able to sit for limited periods of time. Review of Systems Review of Systems: As per above Physical Exam Physical Exam: Constitutional: well-appearing, no acute distress HEENT: NCAT, no conjunctival injection CV: extremities well-perfused, no LE edema Resp: no increased work of breathing MSK: no gross deformities appreciated Neuro: alert, oriented, no focal neurologic deficit appreciated Results & Data Results & Data Vital Signs (Past 12 Hours) Vital Signs Temp Pulse Resp BP Pulse Ox O2 Del Method 12/12/22 19:51 36.6 C 62 18 133/70 97 Room Air Resident Activity Tracking Resident Involvement: Resident Care Provided Care Provided: Adult Hospital Medicine
[2022-12-13] MEDS: HYDROmorphone INJ 0.5 MG/0.5 ML SYR IV PRN (07:10)
[2022-12-13] MEDS: LIDOCAINE 5% 1 PATCH TD SCH (07:14)
[2022-12-13] MEDS ORDERED: VANCOMYCIN LEVEL ONE (08:30)
[2022-12-13] MEDS: tiZANidine HCL 4 MG TABLET PO PRN ×2 (08:55→21:12)
[2022-12-13] MEDS: DORZOLAMIDE/TIMOLOL 22.3/6.8MG/ML 10 ML BTL OPB SCH ×2 (08:56→21:15)
[2022-12-13] MEDS: dexAMETHasone 8 MG in SYRINGE 0 ML IV SCH (08:56)
[2022-12-13] MEDS: lisinopril 20 MG TAB PO SCH (08:56)
[2022-12-13] MEDS: DOCUSATE SODIUM 100 MG CAP PO SCH ×2 (08:56→21:13)
[2022-12-13] MEDS ORDERED: predniSONE 20 MG TAB PO SCH (09:00)
[2022-12-13] MEDS: GABAPENTIN 300 MG CAP PO SCH (09:01)
[2022-12-13] MEDS: LANTUS PER UNIT CHARGE SQ SCH (09:07)
[2022-12-13 09:08] LABS: Hematocrit (blood only) 37.3 % (37.0-47.0); Hemoglobin 12.4 g/dl (12.0-16.0); Mean Corpuscular Hemoglobin 30.1 pg (25.0-34.0); Mean Corpuscular Hgb Conc 33.2 g/dL (32.0-36.0); Mean Corpuscular Volume 90.5 fL (80.0-100.0); Mean Platelet Volume 9.6 fL (9.4-12.4); Platelet Count 421 K/uL (130-400); RDW Coefficient of Variation 14.6 % (11.5-14.5); RDW Standard Deviation 47.9 fL (36.4-46.3); Red Blood Count 4.12 M/uL (4.20-5.40); White Blood Count 13.73 K/ul (4.8-10.8)
[2022-12-13] MEDS: INSULIN ASPART PER UNIT CHARGE SC SCH ×4 (09:08→21:48)
[2022-12-13 09:19] LABS: BUN Creatinine Ratio 34.4 (10-20); Calcium 9.2 mg/dl (8.6-10.3); Creatinine Clr Calc Pharmacy 91.1 ml/min; Est GFR (African American) 114.8 ml/min; Est GFR (Non-African American) 99.1 ml/min
[2022-12-13 09:27] LABS: Basophils # (auto) 0.06 K/uL (0-0.2); Basophils % (auto) 0.4 %; Eosinophils # (auto) 0.09 K/uL (0-0.50); Eosinophils % (auto) 0.7 %; Immature Granulocytes # (auto) 0.11 K/uL (0.01-0.20); Immature Granulocytes % (auto) 0.8 %; Lymphocytes # (auto) 5.61 K/uL (1.2-3.4); Lymphocytes % (auto) 40.9 %; Monocytes # (auto) 0.98 K/uL (0.11-0.59); Monocytes % (auto) 7.1 %; Neutrophils # (auto) 6.88 K/uL (1.40-6.50); Neutrophils % (auto) 50.1 %; RBC Morphology Unremarkable
--- NOTE | 2022-12-13 12:26 | Orthopedic Progress Note ---
Date of Service December 13, 2022 Assessment & Plan (1) Spinal stenosis of lumbar region with radiculopathy: Plan: At this time we will continue ambulation as tolerated monitor CHRISTOPHER drain anticipate discharge home tomorrow. Admission and Anticipated Discharge Date Admission Date: December 11, 2022 Subjective Patient's back pain and leg pain are improving Physical Exam Physical Exam: Patient is in bed at this time. She appears comfortable. Is good strength testing. Results & Data Vital Signs (Past 12 Hours) Vital Signs Temp Pulse Resp BP Pulse Ox O2 Del Method 12/13/22 07:39 36.5 C 52 L 16 112/69 96 Room Air
--- NOTE | 2022-12-13 19:16 | Billing Data ---
Date of Service December 13, 2022 Coding Level of Care Code 76996 SUB INP/OBS CARE
[2022-12-13] MEDS: ATORVASTATIN 20 MG TAB PO SCH (21:13)
[2022-12-13] MEDS: GABAPENTIN 600 MG TAB PO SCH (21:13)
[2022-12-13] MEDS: FENOFIBRATE NANOCRYSTALLIZED 145 MG TABLET PO SCH (21:13)
[2022-12-13] MEDS: TRAVOPROST Z 0.004% OPH SOLN 2.5 ML BTL OPB SCH (21:15)
[2022-12-13] MEDS: ATENOLOL 25 MG TABLET PO SCH (21:48)
[2022-12-14] MEDS: HYDROmorphone HCL 2 MG TAB PO PRN ×2 (04:40→10:46)
[2022-12-14] MEDS: LORazepam 1 MG TAB PO PRN ×2 (04:41→13:59)
--- NOTE | 2022-12-14 07:19 | Hospitalist Progress Note ---
Date of Service December 14, 2022 Assessment & Plan (1) Buttock pain: Plan: Post-operative back pain - Left lower extremity radiculopathy, ambulatory dysfunction. - s/p lumbar decompression/fusion/hardware placement with Dr. Herndon 12/04/2022 recently discharged 12/07/2022 Hold home tramadol - Tylenol scheduled every 8 hours, lidocaine patch daily, continue tizanidine twice daily as needed, hydrocodone scaled for breakthrough with goal of transitioning from IV to oral today - Increase gabapentin to 300mg qAM and 600mg qHS. PT/OT Left hip pelvis/x-ray with degenerative changes - MRI with Posterior paraspinal fluid collection measuring 3.0 x 2.2 x 5.7 cm suggestive of seroma with underlying infectious process or abscess not entirely excluded - Post-op day 2; large hematoma drained - No further IV antibiotics - Ortho, consulted DM2 Weight-based basal bolus Goal BSG [id number] Hold home Jardiance/metformin Pharmacy consulted for assistance with adjustments while on steroids - Lantus 8 units daily, NovoLog with CF= 30 and Carb ratio= 10 HLD Atorvastatin 20 mg p.o. at bedtime, fenofibrate HTN Continue atenolol 25 mg every afternoon (2) Postoperative back pain: (3) Anxiety: (4) Diabetes mellitus, type 2: (5) Hypertension: (6) Hyperlipidemia: Plan DVT prophylaxis: SCDs Diet: DM 2 CODE STATUS: Full code Admission and Anticipated Discharge Date Admission Date: December 11, 2022 Review of Systems Review of Systems: As per above Physical Exam Physical Exam: Constitutional: well-appearing, no acute distress HEENT: NCAT, no conjunctival injection CV: extremities well-perfused, no LE edema Resp: no increased work of breathing MSK: no gross deformities appreciated Neuro: alert, oriented, no focal neurologic deficit appreciated Results & Data Results & Data Vital Signs (Past 12 Hours) Vital Signs Temp Pulse Resp BP Pulse Ox O2 Del Method 12/13/22 21:04 36.4 C L 61 16 103/72 97 Room Air Resident Activity Tracking Resident Involvement: Resident Care Provided Care Provided: Adult Hospital Medicine
[2022-12-14] MEDS: dexAMETHasone 8 MG in SYRINGE 0 ML IV SCH (08:23)
[2022-12-14] MEDS: DOCUSATE SODIUM 100 MG CAP PO SCH (08:24)
[2022-12-14] MEDS: lisinopril 20 MG TAB PO SCH (08:24)
[2022-12-14] MEDS: GABAPENTIN 300 MG CAP PO SCH (08:24)
[2022-12-14] MEDS: DORZOLAMIDE/TIMOLOL 22.3/6.8MG/ML 10 ML BTL OPB SCH (08:25)
[2022-12-14] MEDS: LIDOCAINE 5% 1 PATCH TD SCH (08:26)
[2022-12-14] MEDS: INSULIN ASPART PER UNIT CHARGE SC SCH ×2 (08:38→12:59)
[2022-12-14] MEDS: LANTUS PER UNIT CHARGE SQ SCH (08:39)
[2022-12-14] MEDS: tiZANidine HCL 4 MG TABLET PO PRN (08:43)
[2022-12-14 09:41] LABS: Calcium 9.9 mg/dl (8.6-10.3); Est GFR (Non-African American) 100.1 ml/min; Potassium 4.1 mmol/L (3.5-5.1)
[2022-12-14] MEDS ORDERED: GLYCERIN ADULT 12 SUPP/BOX SUPP PR PRN (09:46)
--- NOTE | 2022-12-14 09:54 | Orthopedic Progress Note ---
Date of Service December 14, 2022 Assessment & Plan (1) Postoperative back pain: Plan: This time we will allow her to go home. She will continue with her current regiment of sitting longer than 30 minutes and walking to tolerance. Lift no more than 5 pounds. We will see her in the next few weeks my office for updated x-rays. Admission and Anticipated Discharge Date Admission Date: December 11, 2022 Subjective Patient's pain is slightly improved. She is ambulating well. She is able to tolerate sitting for 30 minutes at a time. Physical Exam Physical Exam: Patient is constricted testing appears comfortable. CHRISTOPHER drain decreasing probably. Results & Data Vital Signs (Past 12 Hours) Vital Signs Temp Pulse Resp BP Pulse Ox O2 Del Method 12/14/22 07:17 36.3 C L 54 L 18 136/75 96 Room Air
[2022-12-14 10:06] LABS: Hematocrit (blood only) 40.7 % (37.0-47.0); Hemoglobin 13.4 g/dl (12.0-16.0); Mean Corpuscular Hgb Conc 32.9 g/dL (32.0-36.0); Mean Corpuscular Volume 91.1 fL (80.0-100.0); Mean Platelet Volume 9.7 fL (9.4-12.4); Platelet Count 461 K/uL (130-400); RDW Coefficient of Variation 14.6 % (11.5-14.5); RDW Standard Deviation 48.1 fL (36.4-46.3); Red Blood Count 4.47 M/uL (4.20-5.40); White Blood Count 16.23 K/ul (4.8-10.8)
[2022-12-14 10:33] LABS: Basophils % (auto) 0.6 %; Eosinophils # (auto) 0.08 K/uL (0-0.50); Eosinophils % (auto) 0.5 %; Immature Granulocytes # (auto) 0.11 K/uL (0.01-0.20); Immature Granulocytes % (auto) 0.7 %; Monocytes # (auto) 0.88 K/uL (0.11-0.59); Monocytes % (auto) 5.4 %; Neutrophils # (auto) 8.56 K/uL (1.40-6.50); Neutrophils % (auto) 52.8 %
--- NOTE | 2022-12-14 10:46 | Discharge Summary ---
Date of Service December 14, 2022 Admission HPI Per Admitting Provider Veronica is a 57-year-old female with a past medical history of hyperlipidemia, DM 2, hypertension, anxiety, lumbar degenerative disc disease and left lower extremity radiculopathy s/p lumbar decompression/fusion/hardware placement with Dr. Herndon 12/04/2022 recently discharged 12/07/2022 who read presents to the ER with continued left-sided buttock and back pain radiating down her leg which was present before surgery but is persistent and unchanged and patient is unable to perform her IADLs at home and who reports she is unable to returnhome due to inadequate pain control and ambulatory dysfunction. Her pain did not s ignificantly improved following fentanyl, morphine 6 mg x 2, and methylprednisolone load in the ER. Hx sciatic pain for 1 year n the L buttcheek. Was scheduled for later in the year but pain worsened a week a ago and was admitted for surgical intervention of lumbar DDD/radiculopathy. Pt reprots per Dr. Herndon nerve was noted to be particularly badly impinged and irritated during surgery. She returned home last . Has been taking oxy/tylenol/tramadol. She cannot walk, lay, sit. Sleeps barely a few hours before getting back up for pain. Is taking all medications around the clock but. Bring it down rarely at best to a 4/10 from 10/10. Throbs and hurts 'clear down into the L foot' with numbness in the foot/ankle which is new and was not present before her lumbar surgery. Surgery prior was just down to the butt cheek. Strength in LLE is significantly worse compared to preop, and immediately post-op. INitially could flex at the hip preop and postop, but strength has been progressively worsening and cannot lift off the bed since returning home. Has been able to walk minimally to the bathroom since. - Hsn't been eating due to pain. No vomiting +nausea. No diarrhea. - No fever,chills sweats, but felt shakey and warm for one day last week. Nothing in the last 48 hours. No chest pain, chest pressure, lightheadedness, dizziness, syncope, presyncope, falls. Medical History: Reviewed Medications: Reviewed Surgical History: Reviewed Family history: Reviewed Allergies: Reviewed. No known drug allergies Social History: No tobacco/alcohol use Code Status: Full code Principal Diagnosis Hematoma Discharge Exam Constitutional: well-appearing, no acute distress HEENT: NCAT, no conjunctival injection CV: extremities well-perfused, no LE edema Resp: no increased work of breathing MSK: no gross deformities appreciated Neuro: alert, oriented, no focal neurologic deficit appreciated Discharge Data Allergies Allergy/AdvReac Type Severity Reaction Status Date / Time No Known Allergies Allergy Verified 12/09/22 10:27 Consultations 12/09/22 11:37 ED Decision to Admit Stat 12/10/22 14:42 Consult Orthopedic Surgery Routine Procedures Performed Operation Date: 12/11/22 08:20 Actual Procedures p Incision and Drainage Seroma(Not Applicable) - Samir Herndon DO Ordered Studies 12/10/22 22:52 MRI Lumbar Spine [MR lumbar spine wo/w con] Stat 12/11/22 14:30 FL lumbar spine 2-3V Routine Laboratory Results WBC 16.23 K/ul (4.8-10.8) H 12/14/22 07:49 RBC 4.47 M/uL (4.20-5.40) 12/14/22 07:49 Hgb 13.4 g/dl (12.0-16.0) 12/14/22 07:49 Hct 40.7 % (37.0-47.0) 12/14/22 07:49 MCV 91.1 fL (80.0-100.0) 12/14/22 07:49 MCH 30.0 pg (25.0-34.0) 12/14/22 07:49 MCHC 32.9 g/dL (32.0-36.0) 12/14/22 07:49 RDW Std Deviation 48.1 fL (36.4-46.3) H 12/14/22 07:49 RDW Coeff of Robert 14.6 % (11.5-14.5) H 12/14/22 07:49 Plt Count 461 K/uL (130-400) H 12/14/22 07:49 MPV 9.7 fL (9.4-12.4) 12/14/22 07:49 Immature Gran % (Auto) 0.7 % 12/14/22 07:49 Neut % (Auto) 52.8 % 12/14/22 07:49 Lymph % (Auto) 40.0 % 12/14/22 07:49 Frontier % (Auto) 5.4 % 12/14/22 07:49 Eos % (Auto) 0.5 % 12/14/22 07:49 Baso % (Auto) 0.6 % 12/14/22 07:49 Neut # (Auto) 8.56 K/uL (1.40-6.50) H 12/14/22 07:49 Lymph # (Auto) 6.50 K/uL (1.2-3.4) H 12/14/22 07:49 Frontier # (Auto) 0.88 K/uL (0.11-0.59) H 12/14/22 07:49 Eos # (Auto) 0.08 K/uL (0-0.50) 12/14/22 07:49 Baso # (Auto) 0.10 K/uL (0-0.2) 12/14/22 07:49 Immature Gran # (Auto) 0.11 K/uL (0.01-0.20) 12/14/22 07:49 RBC Morphology Unremarkable 12/13/22 08:25 Sodium 137 mmol/L (136-145) 12/14/22 07:49 Potassium 4.1 mmol/L (3.5-5.1) 12/14/22 07:49 Chloride 102 mmol/L (98-107) 12/14/22 07:49 Carbon Dioxide 27 mmol/L (21-32) 12/14/22 07:49 Anion Gap 8 (3-11) 12/14/22 07:49 BUN 18 mg/dl (6-23) 12/14/22 07:49 Creatinine 0.62 mg/dl (0.6-1.2) 12/14/22 07:49 Est Cr Clr Drug Dosing 94.0 ml/min 12/14/22 07:49 Est GFR ( Amer) 116.0 ml/min 12/14/22 07:49 Est GFR (Non-Af Amer) 100.1 ml/min 12/14/22 07:49 BUN/Creatinine Ratio 29.0 (10-20) H 12/14/22 07:49 Glucose 104 mg/dl (70-99(Fasting)) H 12/14/22 07:49 POC Glucose 104 mg/dl (70-99) H 12/14/22 08:05 Lactate 0.9 mmol/L (0.4-2.0) 12/11/22 00:27 Calcium 9.9 mg/dl (8.6-10.3) 12/14/22 07:49 C-Reactive Protein 1.27 mg/dl (0-0.5) H 12/11/22 00:27 Procalcitonin 0.14 ng/ml (0-0.5) 12/11/22 00:27 SARS-CoV-2, RNA, NAAT NEGATIVE (NEGATIVE) 12/09/22 11:39 Impressions Hip/Pelvis X-Ray 12/09/22 13:01 XR hip 1V LT w pelvis CLINICAL HISTORY: Left hip pain. COMPARISON STUDY: None. FINDINGS: Partially visualized lumbar spinal fusion hardware is noted. No acute fracture or dislocation within the pelvis or hips. The sacrum is intact. Mild degenerative changes within the sacroiliac joints, symphysis pubis, and bilateral hips. IMPRESSION: 1. No fracture or dislocation within the pelvis or hips. 2. Mild degenerative changes are noted. ACT 112: Negative or not required by law. Electronically signed by: Celestino Palma M.D. 12/09/2022 2:06 PM Sacrum X-Ray 12/10/22 13:01 XR sacrum only CLINICAL HISTORY: Increased postertive pain TECHNIQUE: 2 views of the sacrococcygeal spine were obtained. Comparison: None available at the time of this dictation. FINDINGS/IMPRESSION: No acute fractures are seen. Degenerative changes are noted. ACT 112: Negative or not required by law. Electronically signed by: Edd Alejo M.D. 12/10/2022 2:57 PM Lumbar Spine MRI 12/10/22 22:52 Exam(s): MRI L SPINE W/WO Contrast IV Amt: 7.5cc gadavist EXAM: MR Lumbar Spine Without and With Intravenous Contrast CLINICAL HISTORY: Reason for exam: evaluate abscess/hematoma. TECHNIQUE: Magnetic resonance images of the lumbar spine without and with intravenous contrast in multiple planes. CONTRAST: Patient received 7.5cc gadavist of IV contrast COMPARISON: 12/03/2022. FINDINGS: Vertebrae: The patient status post posterior fusion from L4-S1. No acute fracture. Spinal cord: The spinal cord terminates at approximate T12-L1 level with normal signal in the visualized portion. No abnormal enhancement. Soft tissues: There is increased signal within the posterior paraspinal lesion with fluid collection extending from approximate L4-S1 level measuring approximately 5.7 cm in craniocaudal dimension by 3.0 x 3. 2 cm in axial dimension. This could represent postoperative seroma versus infectious process/abscess not entirely excluded. There is surrounding enhancement of the paraspinal musculature following contrast administration. DISCS/SPINAL CANAL/NEURAL FORAMINA: L1-L2: Unremarkable. No significant disc disease. No stenosis. L2-L3: Unremarkable. No significant disc disease. No stenosis. L3-L4: Mild hypertrophy of ligamentum flavum and facet complex. Mild diffuse posterior disc bulge. No spinal stenosis. No neuroforaminal encroachment. L4-L5: Broad-based central disc bulge. Mild narrowing of the thecal sac to approximate 6.5 mm. No significant neuroforaminal encroachment. L5-S1: Postoperative changes with no spinal stenosis or significant neuroforaminal encroachment. Mild multilevel disc desiccation throughout the lumbar spine with mild narrowing of disc height, more significant at L5-S1. IMPRESSION: 1. Postoperative changes with posterior fusion from L4-S1. Mild narrowing of the thecal sac at L4-L5 with mild broad-based central disc bulge. No epidural abscess seen. 2. Posterior paraspinal fluid collection measuring 3.0 x 2.2 x 5.7 cm suggestive of seroma with underlying infectious process or abscess not entirely excluded. Clinical correlation recommended. Surrounding paraspinal edema with mild enhancement which may indicate postoperative inflammatory or infectious process. Electronically signed by: Radha Rodríguez MD 12/11/22 02:15 AM Lumbar Spine X-Ray 12/11/22 14:30 FL lumbar spine 2-3V CLINICAL HISTORY: Incision and drainage with POSSIBLE REVISE INSTRUMENTATION COMPARISON STUDY: Lumbar spine MRI 12/10/2022. FLUOROSCOPY TIME: 6 seconds FLUOROSCOPY IMAGES: 2 Ka,r: 4.7 mGy FINDINGS: There is again noted L4-S1 pedicle screws and rods. The hardware appears intact. A disc spacer at L5-S1 remains in place. IMPRESSION: Fluoroscopic assistance provided for incision and drainage within the lower lumbar spine. ACT 112: Negative or not required by law. Electronically signed by: Celestino Palma M.D. 12/11/2022 4:00 PM Hospital Course (1) Postoperative back pain: Post-operative back pain - s/p lumbar decompression/fusion/hardware placement with Dr. Herndon 12/04/2022; Presented with increased back pain - MRI withPosterior paraspinal fluid collection measuring 3.0 x 2.2 x 5.7 cm suggestive of seroma with underlying infectious process or abscess not entirely excluded - Dr. Herndon drained a large hematoma, no signs of infection - Plan to discharge to home with close ortho f/u - Pain regimen: Tylenol, tizanidine, hydrocodone 2-4mg prn, increase gabapentin to 300mg qAM and 600mg qHS.As pain improves, consider slow tapering on gabapentin DM2 Plan to resume on regimen. HLD Plan to resume home regimen HTN Plan to resume home regimen (2) Anxiety: (3) Diabetes mellitus, type 2: (4) Hypertension: (5) Hyperlipidemia: (6) Buttock pain: Total Time Total Time Spent Total Time Spent (In Minutes): See attending attestation Discharge Plan Discharge Items Patient Disposition: Home - Self-Care Reason For Visit: LLE WEAKNESS, NEUROPATHY, AMBULATORY DYSFUNCTION Discharge Diagnosis: Postop hematoma Activity: As commented below Non-emergency contact: Primary Care Provider Call non-emergency contact if: you have any medication questions Follow-up/Referrals: Nichelle Pryor PA-C [Primary Care Provider] - 12/20/22 1:25 pm Diet: Regular Addtl Attending Provider Instructions: ACTIVITY RECOMMENDATIONS: SELF CARE INSTRUCTIONS AFTER THORACIC/LUMBAR FUSIONS 1. You may walk to your tolerance. It is good exercise for your legs and back. Expect some back and intermittent leg aches and pains. 2. You may perform "counter-top" level activities (make a sandwich, ericka with a project, etc.). 3. No bending or lifting of more than 10 pounds or back twisting of any nature (roll like a log when turning in bed). 4. You may ride in a car for 20-30 minutes at a time. No driving until after your first visit with your doctor. 5. Frequent changes of position and restricting sitting to 30 minutes at a time will help limit the amount of back spasms and stiffness you may experience. 6. You may discontinue the use of ambulatory aids (cane, crutches, etc.) once your strength and confidence allow. 7. You may air conditioning unit assembler the shower and let water strike your incision when you arrive home at least once daily. Do not take a tub bath, sit in a hot tub or go into a swimming pool until after your first recheck in the office. SPECIAL CARE INSTRUCTIONS: VERY IMPORTANT TO READ AND REVIEW A. Your surgical incision has been closed with a cosmetic suture under the skin that will dissolve in about 6 weeks. In 14 days, you can use a pair of clean scissors and cut the suture that is left outside of the skin at the ends of your incision. 1. The small skin tapes can be removed 7 days after surgery if they have not fallen off by that point. 2. You may keep the wound open to air as much as possible to promote healing after post-op day number 5 unless told otherwise by your doctor. 3. If you think the wound looks like it is becoming infected (redness or worsening drainage) and/or you are experiencing fever, chill or worsening back pain and muscle spasms, contact the office so that we may evaluate you as soon as possible. B. Complications are uncommon, but please contact us if you have any signs or symptoms of: 1. wound infection (fever higher than 102.5 degrees F, redness, separation of wound, drainage, or increasing pain from the incision) 2. blood clots in legs (pain, swelling, redness and warmth in legs) 3. urinary tract infection (fever higher than 102.5 degrees F, burning upon urination or increased frequency of urination) 4. nerve problems (inability to walk on your toes or heels, numbness, loss of bowel or bladder control) 5. any other symptoms that concern you C. Please call the office at if you have any concerns or questions about your operation or recovery. D. No smoking! Smoking drastically decreases the chance of a solid fusion. E. Do not take any anti-inflammatory medications (Indocin, Advil, Motrin, Aspirin, Naprosyn, etc.) as these may inhibit the chance of a solid fusion. Tylenol is okay to take for pain. MANAGING PAIN AFTER SPINAL SURGERY 1. Narcotic medication is intended for short-term use and will be provided for surgical pain. Surgical pain usually lasts for a period of 4-6 weeks. Narcotic medication includes Percocet, Vicodin, Darvocet, Tylenol #3 or Lortab. 2. Longer-term pain is more appropriately treated with non-narcotic medication such as Tylenol ES. 3. Muscle spasm is not appropriately treated with narcotics. Muscle relaxers such as Soma, Flexeril or Skelaxin can be used along with Tylenol ES. 4. Remember that we all live with some "aches and pains". This is not unusual or uncommon after an injury or as we get older. a. Back pain is expected and may include muscle spasms for 4 to 6 weeks after surgery. The pain should gradually improve. If the pain worsens for no apparent reason, please contact the office. b. Intermittent leg pain may also be experienced and should not be concerned about unless it worsens for no apparent reason. If so, please contact the office. 5. We will provide appropriate medication within the normal guidelines of their prescribed use. We will also be very cautious and aware of potential abuse and extended duration of patients' medication needs. a. Pain medications are for your comfort and to assist with sleep and rest so that the tissue can heal. They are not provided in order to return to normal activity and should not be used through the day. To do so or worsening pain at night can result from ongoing tissue damage and development of tolerance to the prescribed medicine. 6. Please allow 2-3 days to process refills. Prescriptions will not be mailed but must be picked up at the office. FOLLOW UP VISIT: Keep your scheduled follow-up appointment. Any questions, please call the office at . Pending Studies at Discharge: No Stand-Alone Forms: My [facility], Smoking Cessation Medications and [place] Order Prescriptions: New gabapentin 600 mg Tablet 600 mg PO HS Qty: 30 2RF hydromorphone [Dilaudid] 2 mg Tablet 4 mg PO Q6 PRN (Reason: pain) Qty: 30 0RF gabapentin 300 mg Capsule 300 mg PO DAILY Qty: 30 2RF Continued tizanidine 4 mg tablet 4 mg PO BID PRN (Reason: muscle spasticity) Qty: 30 1RF metformin 500 mg Tablet 500 mg PO HS atorvastatin [Lipitor] 20 mg Tablet 20 mg PO HS cetirizine [Zyrtec] 10 mg Tablet 10 mg PO QAM atenolol 25 mg Tablet 25 mg PO QPM travoprost [Travatan Z] 0.004 % Drops 1 drp OPB HS lorazepam [Ativan] 1 mg Tablet 1 mg PO HS PRN (Reason: Anxiety) fenofibrate nanocrystallized 145 mg Tablet 145 mg PO HS lisinopril 20 mg Tablet 20 mg PO QAM dorzolamide-timolol 22.3-6.8 mg/mL Drops 1 drp OPHTHALMIC (EYE) [facility] Jardiance 25 mg tablet 25 mg PO QAM acetaminophen [Tylenol Extra Strength] 500 mg Tablet 1,000 mg PO DIRECTED PRN (Reason: PAIN/FEVER) docusate sodium [Colace] 100 mg Capsule 100 mg PO DAILY tramadol 50 mg tablet 50 mg PO Q6H PRN (Reason: pain, moderate) Qty: 30 0RF oxycodone 5 mg tablet 5 mg PO Q6H PRN (Reason: pain) Qty: 30 0RF ondansetron HCl 4 mg tablet 4 mg PO QID PRN (Reason: nausea and vomiting) Qty: 20 0RF lidocaine 5 % adhesive patch,medicated 1 patch topical DAILY Qty: 15 0RF Rx Instructions: leave on most painful area for up to 12 hrs Discharge Orders: Discharge Order (Routine); Ordered 12/14/22 Ordered By: Samir Herndon Admission Data Admit Date/Time: 12/11/22 09:11 Attending Provider: Timothy Moser Admit Provider: Kel Baltazar Primary Care Provider: Nichelle Pryor Other Providers: [facility] ; [facility] ; Kel Baltazar ; Samir Herndon Supervising Physician Co-Signing Physician Notes I personally examined the patient and verified all brar points of history and exam, discussed case, and agree with decision making with Dr Hagan. feeling good enough to go home. discussed medications. vitals noted nad heent nc at mmm breathing unlabored no accessory muscles good effort skin no rashes no pallor or icterus Postop hematoma, lumbar radiculopathy with persistent radicular painimproving. safe for home. continue gabapentin for now (anticipate slow weaning over next ~4-6wks most likely) short course of dilauded. wean zanaflex since wasn't really helping much. would benefit from semi-electric hospital bed because this patient requires positioning of the body in ways not feasible with an ordinary bed in order to alleviate pain and requires frequent changes in body position. Resident Activity Tracking Resident Involvement: Resident Care Provided Care Provided: Adult Hospital Medicine
--- NOTE | 2022-12-14 12:22 | Billing Data ---
Date of Service December 14, 2022 Coding Level of Care Code 37395 IN/OBS DISCH 30 MIN/LESS
[2022-12-15] MEDS ORDERED: predniSONE 10 MG TABLET PO SCH (09:00)
== END 2022-12-14 15:12 | disposition home or self-care (01) | DRG 909 ==
LOC: EDINP 07:06 → ED 07:06 → SUATTDRO 12:30 → 3E 12:49

== ENCOUNTER 2023-01-11 07:08 | Inpatient (IN) ==
[2023-01-11] MEDS ORDERED: MoRPHine SULFATE 10 MG/ML CARP/VIAL IV STA (07:21)
[2023-01-11] MEDS ORDERED: ONDANSETRON INJ 2 MG/ML 2 ML VIAL IV STA (07:21)
--- NOTE | 2023-01-11 07:25 | Emergency Department Note ---
Impression & Plan Back pain, Acute leg pain ED Provider Note NAME: NOEL SCHWARZ AGE: 57 SEX: F : 1965 ARRIVES VIA: Walk-In INFORMANT: Patient ED PROVIDER(S): Timothy Fletcher DO CHIEF COMPLAINT: back pain HPI: Patient is a 57-year-old female who presents the ER for back pain. She has a past medical history of spinal stenosis with overall lumbar radiculopathy with surgery on the and then a revision on the secondary to a hematoma. She notes that she was doing well until about December 26. Since then she started having pain in the left leg. It did start to go up into her left hip and back about 3 to 4 days ago. She was seen here and had an MRI which was unremarkable. She notes the pain got significantly worse. It actually improves with walking. She cannot sleep or lay down. She has to sit in a chair. She denies any new weakness or numbness. She is able to urinate move her bowels. No fevers. No other exacerbating or remitting factors. PAST MEDICAL HISTORY:See Below PAST SURGICAL HISTORY:See Below FAMILY HISTORY:See Below SOCIAL HISTORY:See Below HOME MEDICATIONS:See Below ALLERGIES:See Below VITALS:See Below PHYSICAL EXAMINATION: GENERAL: Sitting up in bed, alert, tearful, holding her left lower back EYE EXAM: normal conjunctiva. OROPHARYNX: mucous membranes are moist LUNGS: Clear to auscultation. Normal chest wall mechanics HEART: no murmurs, S1 normal and S2 normal ABDOMEN: abdomen soft, non-tender, normo-active bowel sounds, no masses, no rebound or guarding. BACK: Back is symmetrical on inspection and there is no deformity, midline incision is clean dry and intact, no CVA tenderness. UPPER EXTREMITIES: upper extremities are grossly normal. LOWER EXTREMITIES: Flexion and extension of the hips, knees, ankles, and EHL 5/5 bilaterally. Gross sensation is intact. DPs are 2/4 bilateral. Patellar and Achilles reflexes are 2/4 bilateral NEURO EXAM: Normal sensorium, cranial nerves II-XII grossly intact, normal speech, no gross weakness of arms, no gross weakness of legs. MEDICAL DECISION MAKING: Patient is a 57-year-old female who presents ER for back pain radiating down through her left leg. She had [address] Herndon and presents as the pain has worsened significantly. MRI reviewed within the past [address] Herndon for the same complaint. She has no weakness or numbness. She cannot get comfortable. IV was established blood work was obtained. External records reviewed. Labs show mild leukocytosis of 12.5 thousand. No significant anemia. BMP was unremarkable. COVID was negative. CT was performed at the request of Dr. Herndon. Patient was seen evaluated by Dr. Herndon and admitted to his ser vice. She was given multiple doses of morphine. Triage Nursing notes reviewed. Limited review of prior medical records performed Vital Signs: reviewed and remarkable for no significant abnormalities Differential diagnosis: Musculoskeletal, disc herniation, fracture, metastatic disease, cord compression, discitis, sciatica, cauda equina, infection, aortic disease, renal colic, gastrointestinal, as well as other pathologies. ER treatment provided: See below Diagnostics interpreted by me include EKG and cardiac monitoring as listed below: -Cardiac Monitoring: An order was placed for continuous cardiac monitoring. The monitor shows a rate of 80 with sinus rhythm. -ECG: none -Laboratory studies:Interpreted by me as stated above in MDM and shown below. Imaging studies: Xrays: As interpreted by me:none CTs show: CT of the lumbar spine showed no new acute pathology Consultation(s): As described in MDM Procedures:none Critical Care: None Past Med/Surg History Medical History Anxiety Diabetes mellitus, type 2 Elevated platelet count FOLLOWS HEMATOLOGY (BEING MONITORED) Glaucoma Hx of colonic polyps Hyperlipidemia Hypertension Surgical History History of cardiac cath 7 YRS AGO @ [place] > FOR CHEST PAIN > NO STENTS History of section X 1 History of cholecystectomy History of colonoscopy History of dilatation and curettage History of endoscopic sinus surgery History of tooth extraction Family History Grandmother (Maternal) Diabetes Family history of diabetes mellitus Mother Family history of diabetes mellitus Other No family history of adverse response to anesthesia Social History Smoking Status: Current some day smoker Tobacco Type: Cigarettes Cigarettes Per Day: 10; Second Hand Exposure: Yes (IN THE PAST); Do You Dip or Chew Tobacco: No; Hx Alcohol Use: Yes Hx Substance Use: No Preferred Language: Yakut Communication Ability: Effective Fountain Waitress/Waiter Required: No Beliefs That Will Affect Care: None Current Living Situation: Spouse and Family Current Living Situation Comment: Lives with and step son Feels Safe at Home: Yes Assistive Devices: Walker Allergies Allergies Allergy/AdvReac Type Severity Reaction Status Date / Time No Known Allergies Allergy Verified 01/11/23 10:27 Home Meds Home Medications Medication Instructions Recorded Confirmed atenolol 25 mg tablet 25 mg PO QPM 06/06/19 01/11/23 atorvastatin 20 mg tablet (Lipitor) 20 mg PO HS 06/06/19 01/11/23 cetirizine 10 mg tablet (Zyrtec) 10 mg PO QAM 06/06/19 01/11/23 fenofibrate nanocrystallized 145 145 mg PO HS 06/06/19 01/11/23 mg tablet lorazepam 1 mg tablet (Ativan) 1 mg PO HS PRN Anxiety 06/06/19 01/11/23 metformin 500 mg tablet 500 mg PO HS 06/06/19 01/11/23 travoprost 0.004 % eye drops 1 drp OPB HS 06/06/19 01/11/23 (Travatan Z) dorzolamide 22.3 mg-timolol 6.8 1 drp ophthalmic (eye) [facility] 11/02/20 01/11/23 mg/mL eye drops lisinopril 20 mg tablet 20 mg PO QAM 11/02/20 01/11/23 acetaminophen 500 mg tablet 1,000 mg PO DIRECTED PRN 12/02/22 01/11/23 (Tylenol Extra Strength) PAIN/FEVER docusate sodium 100 mg capsule 100 mg PO DAILY 12/02/22 01/11/23 (Colace) empagliflozin 25 mg tablet 25 mg PO QAM 12/02/22 01/11/23 (Jardiance) methylprednisolone 4 mg tablets in 4 mg PO BID 01/11/23 01/11/23 a dose pack Previous Rx's Medication Instructions Recorded tizanidine 4 mg tablet 4 mg PO BID PRN muscle spasticity 10/06/22 #30 tabs oxycodone 5 mg tablet 5 mg PO Q6H PRN pain #30 tabs 12/05/22 tramadol 50 mg tablet 50 mg PO Q6H PRN pain, moderate 12/05/22 #30 tabs lidocaine 5 % topical patch 1 patch topical DAILY #15 ea 12/07/22 ondansetron HCl 4 mg tablet 4 mg PO QID PRN nausea and 12/07/22 vomiting #20 tabs gabapentin 300 mg capsule 300 mg PO DAILY #30 caps 12/14/22 gabapentin 600 mg tablet 600 mg PO HS #30 tabs 12/14/22 hydromorphone 2 mg tablet 4 mg PO Q6 PRN pain #30 tabs 12/14/22 (Dilaudid) oxycodone 5 mg tablet 5 mg PO TID PRN pain #14 tabs 01/09/23 Results & Data (ED) Vital Signs Vital Signs - 24 hr 01/11/23 07:10 01/11/23 08:11 01/11/23 08:31 Temperature 36.8 C Temperature Source Temporal Artery Scan Pulse Rate 78 71 Pulse Rate [Left Finger] 66 Pulse Rhythm Pulse Rhythm [Left Finger] Pulse Strength [Left Finger] Respiratory Rate 18 18 Respiratory Effort / Characteristics Non-Labored Spontaneous Respiratory Depth Normal Respiratory Pattern Regular Blood Pressure 132/78 Blood Pressure [Left Arm] 117/77 Blood Pressure Mean 96 Blood Pressure Mean [Left Arm] 90 Blood Pressure Position [Left Arm] Pulse Oximetry 98 98 Oxygen Delivery Method Room Air Sepsis Recent Fever Within 48 Hours No Sepsis New/Unexplained Change in Mental Status No Sepsis Action Taken by Nursing No Action Required 01/11/23 10:00 01/11/23 11:00 Temperature Temperature Source Pulse Rate 71 Pulse Rate [Left Finger] 71 Pulse Rhythm Regular Pulse Rhythm [Left Finger] Regular Pulse Strength [Left Finger] Normal Respiratory Rate 20 18 Respiratory Effort / Characteristics Non-Labored Spontaneous Respiratory Depth Normal Respiratory Pattern Regular Blood Pressure Blood Pressure [Left Arm] 123/72 Blood Pressure Mean Blood Pressure Mean [Left Arm] 89 Blood Pressure Position [Left Arm] Lying Pulse Oximetry 98 98 Oxygen Delivery Method Room Air Room Air Sepsis Recent Fever Within 48 Hours Sepsis New/Unexplained Change in Mental Status Sepsis Action Taken by Nursing Laboratory Data 01/11/23 08:07 01/11/23 08:07 Lab Results 01/11/23 01/11/23 01/11/23 Range/Units 08:07 08:07 08:13 WBC 12.50 H (4.8-10.8) K/ul RBC 4.89 (4.20-5.40) M/uL Hgb 14.6 (12.0-16.0) g/dl Hct 44.1 (37.0-47.0) % MCV 90.2 (80.0-100.0) fL MCH 29.9 (25.0-34.0) pg MCHC 33.1 (32.0-36.0) g/dL RDW Std Deviation 46.1 (36.4-46.3) fL RDW Coeff of Robert 14.0 (11.5-14.5) % Plt Count 452 H (130-400) K/uL MPV 9.5 (9.4-12.4) fL Immature Gran % (Auto) 0.6 % Neut % (Auto) 67.0 % Lymph % (Auto) 26.4 % [place] % (Auto) 4.6 % Eos % (Auto) 0.6 % Baso % (Auto) 0.8 % Neut # (Auto) 8.36 H (1.40-6.50) K/uL Lymph # (Auto) 3.30 (1.2-3.4) K/uL [place] # (Auto) 0.58 (0.11-0.59) K/uL Eos # (Auto) 0.08 (0-0.50) K/uL Baso # (Auto) 0.10 (0-0.2) K/uL Immature Gran # (Auto) 0.08 (0.01-0.20) K/uL Sodium 135 L (136-145) mmol/L Potassium 3.8 (3.5-5.1) mmol/L Chloride 101 (98-107) mmol/L Carbon Dioxide 21 (21-32) mmol/L Anion Gap 13 H (3-11) BUN 17 (6-23) mg/dl Creatinine 0.63 (0.6-1.2) mg/dl Est Cr Clr Drug Dosing 93.1 ml/min Est GFR ( Amer) 115.4 ml/min Est GFR (Non-Af Amer) 99.6 ml/min BUN/Creatinine Ratio 27.0 H (10-20) Glucose 95 (70-99(Fasting)) mg/dl Calcium 10.5 H (8.6-10.3) mg/dl SARS-CoV-2, RNA, NAAT NEGATIVE (NEGATIVE) Administered Medications Morphine Sulfate (Morphine Sulfate 4 Mg/Ml 1 Ml Carp\Vial) 4 mg IV Q1H PRN PRN Reason: Severe Pain (Rating 7,8,9,10) Stop: 01/25/23 07:58 Last Admin: 01/11/23 08:35 Dose: 4 mg Documented By: Admin: 01/11/23 08:11 Dose: 4 mg Documented By: CAROL Discontinued Medications Hydromorphone HCl (Hydromorphone Inj 1 Mg/Ml Syringe) Confirm Administered Dose 1 mg .ROUTE .STK-MED ONE Stop: 01/11/23 10:06 Last Admin: 01/11/23 10:07 Dose: 1 mg Documented By: CAROL Lorazepam (Lorazepam 2 Mg/1 Ml Vial) 0.5 mg IV NOW STA Stop: 01/11/23 09:29 Last Admin: 01/11/23 09:52 Dose: 0.5 mg Documented By: CAROL Morphine Sulfate (Morphine Sulfate 10 Mg/Ml Carp/Vial) 6 mg IV NOW STA Stop: 01/11/23 07:22 Last Admin: 01/11/23 08:19 Dose: Not Given Documented By: CAROL Ondansetron HCl (Ondansetron Inj 2 Mg/Ml 2 Ml Vial) 4 mg IV NOW STA Stop: 01/11/23 07:22 Last Admin: 01/11/23 08:11 Dose: 4 mg Documented By: CAROL Imaging Data Radiologist's Impression: Lumbar Spine CT 01/11/23 07:59 CT lumbar spine wo con HISTORY: 57 years-old Female back pain acute low back pain with prior surgery COMPARISON: MRI lumbar spine 01/09/2023 TECHNIQUE: Multiple axial CT images of the lumbar spine were obtained without the use of IV contrast. A dose lowering technique was used consistent with the principals of ALARA. FINDINGS: Atherosclerosis of the aorta. The imaged intra-abdominal structures are unremarkable. No significant paravertebral edema or epidural collections identified. No acute fracture, subluxation or endplate erosion identified. L5-S1 laminectomy and discectomy with posterior and right carotid screw fusion hardware at L4-S1. Prior removal of the left L5 pedicle screw. Unchanged 4 mm anterolisthesis L5 on S1. The L5-S1 disc spacer is again noted within the left lateral aspect of the intervertebral disc space. The left L4 screw extends medial to the pedicle extending into the left lateral recess. The hardware appears to be intact. Streak artifact from the hardware limits the study. Mild multilevel and vertebral disc space narrowing with spondylitic spurring, annular disc bulging and probably moderate facet arthrosis. The small probable seroma within the operative bed described on MRI is not well visualized by CT. The previously described areas of central canal and foraminal narrowing are also better evaluated on MRI. Suboptimal visualization of the neural foramen at L5-S1 secondary to the aforementioned streak artifact. There is apparent at least moderate to severe bilateral foraminal narrowing at this level. IMPRESSION: 1. No acute fracture or subluxation. 2. L5 laminectomy with L4-S1 posterior interbody chuck and screw fusion and L5-S1 discectomy redemonstrated. Artifact from the hardware limits the study, notably evaluation of the L5-S1 neural foramina. 3. The left L4 pedicle screw extends medial to the pedicle into the left lateral recess and the L5-S1 disc spacer is noted within the left lateral aspect of the disc space extending into the adjacent lateral recess. 4. Central canal and neural foraminal stenosis is better evaluated on the comparison MRI study. ACT 112: Negative or not required by law. The above report was generated using voice recognition software. It may contain grammatical, syntax or spelling errors. Electronically signed by: Jayson Floyd M.D. 01/11/2023 8:47 AM Discharge Plan Visit Data Chief Complaint: Back Injury/Pain Stated Complaint: BACK PAIN ED Provider: Timothy Fletcher Discharge Problem: Back pain, Acute leg pain Discharge Instructions Interventions: ED Discharge Assessment Last Done: 01/11/23 12:20 Prescriptions Prescriptions: No Action tizanidine 4 mg tablet 4 mg PO BID PRN (Reason: muscle spasticity) Qty: 30 1RF metformin 500 mg Tablet 500 mg PO HS atorvastatin [Lipitor] 20 mg Tablet 20 mg PO HS cetirizine [Zyrtec] 10 mg Tablet 10 mg PO QAM atenolol 25 mg Tablet 25 mg PO QPM travoprost [Travatan Z] 0.004 % Drops 1 drp OPB HS lorazepam [Ativan] 1 mg Tablet 1 mg PO HS PRN (Reason: Anxiety) fenofibrate nanocrystallized 145 mg Tablet 145 mg PO HS lisinopril 20 mg Tablet 20 mg PO QAM dorzolamide-timolol 22.3-6.8 mg/mL Drops 1 drp OPHTHALMIC (EYE) [facility] gabapentin 600 mg Tablet 600 mg PO HS Qty: 30 2RF hydromorphone [Dilaudid] 2 mg Tablet 4 mg PO Q6 PRN (Reason: pain) Qty: 30 0RF gabapentin 300 mg Capsule 300 mg PO DAILY Qty: 30 2RF oxycodone 5 mg tablet 5 mg PO TID PRN (Reason: pain) Qty: 14 0RF methylprednisolone 4 mg tablets,dose pack 4 mg PO BID Jardiance 25 mg tablet 25 mg PO QAM acetaminophen [Tylenol Extra Strength] 500 mg Tablet 1,000 mg PO DIRECTED PRN (Reason: PAIN/FEVER) docusate sodium [Colace] 100 mg Capsule 100 mg PO DAILY tramadol 50 mg tablet 50 mg PO Q6H PRN (Reason: pain, moderate) Qty: 30 0RF oxycodone 5 mg tablet 5 mg PO Q6H PRN (Reason: pain) Qty: 30 0RF ondansetron HCl 4 mg tablet 4 mg PO QID PRN (Reason: nausea and vomiting) Qty: 20 0RF lidocaine 5 % adhesive patch,medicated 1 patch topical DAILY Qty: 15 0RF Rx Instructions: leave on most painful area for up to 12 hrs
[2023-01-11] MEDS ORDERED: MoRPHine SULFATE 2 MG/ML CARP IV PRN (07:59)
[2023-01-11] MEDS: MoRPHine SULFATE 4 MG/ML 1 ML CARP\\VIAL IV PRN ×3 (08:11→09:52)
[2023-01-11 08:41] LABS: Calcium 10.5 mg/dl (8.6-10.3); Creatinine Clr Calc Pharmacy 93.1 ml/min; Est GFR (African American) 115.4 ml/min; Est GFR (Non-African American) 99.6 ml/min; Potassium 3.8 mmol/L (3.5-5.1)
--- NOTE | 2023-01-11 08:49 | CT Scan Report ---
CT lumbar spine wo con HISTORY: 57 years-old Female back pain acute low back pain with prior surgery COMPARISON: MRI lumbar spine 01/09/2023 TECHNIQUE: Multiple axial CT images of the lumbar spine were obtained without the use of IV contrast. A dose lowering technique was used consistent with the principals of ALARA. FINDINGS: Atherosclerosis of the aorta. The imaged intra-abdominal structures are unremarkable. No significant paravertebral edema or epidural collections identified. No acute fracture, subluxation or endplate er osion identified. L5-S1 laminectomy and discectomy with posterior and right carotid screw fusion hard akers at L4-S1. Prior removal of the left L5 pedicle screw. Unchanged 4 mm anterolisthesis L5 on S1. T he L5-S1 disc spacer is again noted within the left lateral aspect of the intervertebral disc space. The left L4 screw extends medial to the pedicle extending into the left lateral recess. The hardware appears to be intact. Streak artifact from the hardware limits the study. Mild multilevel and vertebral disc space narrowing with spondylitic spurring, annular disc bulging an d probably moderate facet arthrosis. The small probable seroma within the operative bed described on MRI is not well visualized by CT. The previously described areas of central canal and foraminal narro wing are also better evaluated on MRI. Suboptimal visualization of the neural foramen at L5-S1 second navarro to the aforementioned streak artifact. There is apparent at least moderate to severe bilateral fo raminal narrowing at this level. IMPRESSION: 1. No acute fracture or subluxation. 2. L5 laminectomy with L4-S1 posterior interbody chuck and screw fusion and L5-S1 discectomy redemonstr ated. Artifact from the hardware limits the study, notably evaluation of the L5-S1 neural foramina. 3. The left L4 pedicle screw extends medial to the pedicle into the left lateral recess and the L5-S1 disc spacer is noted within the left lateral aspect of the disc space extending into the adjacent la teral recess. 4. Central canal and neural foraminal stenosis is better evaluated on the comparison MRI study. ACT 112: Negative or not required by law. The above report was generated using voice recognition software. It may contain grammatical, syntax o r spelling errors. Electronically signed by: Jayson Floyd M.D. 01/11/2023 8:47 AM
[2023-01-11 08:57] LABS: Hematocrit (blood only) 44.1 % (37.0-47.0); Hemoglobin 14.6 g/dl (12.0-16.0); Mean Corpuscular Hemoglobin 29.9 pg (25.0-34.0); Mean Corpuscular Hgb Conc 33.1 g/dL (32.0-36.0); Mean Corpuscular Volume 90.2 fL (80.0-100.0); Mean Platelet Volume 9.5 fL (9.4-12.4); Platelet Count 452 K/uL (130-400); RDW Standard Deviation 46.1 fL (36.4-46.3); Red Blood Count 4.89 M/uL (4.20-5.40)
[2023-01-11 08:58] LABS: Basophils % (auto) 0.8 %; Eosinophils # (auto) 0.08 K/uL (0-0.50); Eosinophils % (auto) 0.6 %; Immature Granulocytes # (auto) 0.08 K/uL (0.01-0.20); Immature Granulocytes % (auto) 0.6 %; Lymphocytes % (auto) 26.4 %; Monocytes # (auto) 0.58 K/uL (0.11-0.59); Monocytes % (auto) 4.6 %; Neutrophils # (auto) 8.36 K/uL (1.40-6.50)
[2023-01-11] MEDS ORDERED: LORazepam 2 MG/1 ML VIAL IV STA (09:28)
--- NOTE | 2023-01-11 09:56 | History & Physical Report ---
Date of Service January 11, 2023 Assessment & Plan (1) Postoperative back pain: Plan: CAT scan lumbar spine from this morning is available for review. I am concerned that there is a combination of loosening of the S1 pedicle screws bilaterally as well as evidence of bone graft that may have migrated into the lateral recess and foramina of L5-S1 on the left. This undoubtedly would contribute to her symptom complex. I had lengthy discussion today with the patient and her daughter reviewing these findings and her clinical presentation. My recommendation that we consider revision fusion L4-L5 L5-S1 and address any development of neural compression and loosening of hardware. Risk benefits pros cons alternatives in detail. They would like to pursue this. I will have her admitted and plan for surgery soon as possible. History of Present Illness Chief Complaint: Worsening back and left leg pain Primary Care Provider: Nichelle Pryor This is a 57-year-old female known to me that status post lumbar decompression fusion. She was doing well after an I&D of a seroma but early December she department had a marked decline in status that has not improved. She has pain across the left back and left buttock posterior thigh into the foot. It does limit her ability to sit stand and ambulate for any distance. It does awaken her from sleep. She has not been responsive to medications. She returns the ER today with worsening symptoms. Allergies Allergy/AdvReac Type Severity Reaction Status Date / Time No Known Allergies Allergy Verified 12/09/22 10:27 Home Medications Medication Instructions Recorded Confirmed Type atenolol 25 mg tablet 25 mg PO QPM 06/06/19 12/09/22 History atorvastatin 20 mg tablet (Lipitor) 20 mg PO HS 06/06/19 12/09/22 History cetirizine 10 mg tablet (Zyrtec) 10 mg PO QAM 06/06/19 12/09/22 History fenofibrate nanocrystallized 145 145 mg PO HS 06/06/19 12/09/22 History mg tablet lorazepam 1 mg tablet (Ativan) 1 mg PO HS PRN Anxiety 06/06/19 12/09/22 History metformin 500 mg tablet 500 mg PO HS 06/06/19 12/09/22 History travoprost 0.004 % eye drops 1 drp OPB HS 06/06/19 12/09/22 History (Travatan Z) dorzolamide 22.3 mg-timolol 6.8 1 drp ophthalmic (eye) [facility] 11/02/20 12/09/22 History mg/mL eye drops lisinopril 20 mg tablet 20 mg PO QAM 11/02/20 12/09/22 History tizanidine 4 mg tablet 4 mg PO BID PRN muscle spasticity 10/06/22 12/09/22 Rx #30 tabs acetaminophen 500 mg tablet 1,000 mg PO DIRECTED PRN 12/02/22 12/09/22 History (Tylenol Extra Strength) PAIN/FEVER docusate sodium 100 mg capsule 100 mg PO DAILY 12/02/22 12/09/22 History (Colace) empagliflozin 25 mg tablet 25 mg PO QAM 12/02/22 12/09/22 History (Jardiance) oxycodone 5 mg tablet 5 mg PO Q6H PRN pain #30 tabs 12/05/22 12/09/22 Rx tramadol 50 mg tablet 50 mg PO Q6H PRN pain, moderate 12/05/22 12/09/22 Rx #30 tabs lidocaine 5 % topical patch 1 patch topical DAILY #15 ea 12/07/22 12/09/22 Rx ondansetron HCl 4 mg tablet 4 mg PO QID PRN nausea and 12/07/22 12/09/22 Rx vomiting #20 tabs gabapentin 300 mg capsule 300 mg PO DAILY #30 caps 12/14/22 Rx gabapentin 600 mg tablet 600 mg PO HS #30 tabs 12/14/22 Rx hydromorphone 2 mg tablet 4 mg PO Q6 PRN pain #30 tabs 12/14/22 Rx (Dilaudid) oxycodone 5 mg tablet 5 mg PO TID PRN pain #14 tabs 01/09/23 Rx Past Med/Surg History Medical History Anxiety Diabetes mellitus, type 2 Elevated platelet count FOLLOWS HEMATOLOGY (BEING MONITORED) Glaucoma Hx of colonic polyps Hyperlipidemia Hypertension Surgical History History of cardiac cath 7 YRS AGO @ [place] > FOR CHEST PAIN > NO STENTS History of section X 1 History of cholecystectomy History of colonoscopy History of dilatation and curettage History of endoscopic sinus surgery History of tooth extraction Family History Grandmother (Maternal) Diabetes Family history of diabetes mellitus Mother Family history of diabetes mellitus Other No family history of adverse response to anesthesia Social History Smoking Status: Current some day smoker Tobacco Type: Cigarettes Cigarettes Per Day: 10; Second Hand Exposure: Yes (IN THE PAST); Do You Dip or Chew Tobacco: No; Hx Alcohol Use: Yes Hx Substance Use: No Preferred Language: Vietnamese Communication Ability: Effective Labor Relations Teacher Required: No Beliefs That Will Affect Care: None Current Living Situation: Spouse and Family Current Living Situation Comment: Lives with and step son Feels Safe at Home: Yes Assistive Devices: Walker Physical Exam Physical Exam: On exam she is in obvious distress. She is reasonable sensation to cold and light touch to lower extremities. There is tension signs straight leg raising on the left. There is 4+5 bilateral plantarflexion dorsiflexion quadriceps. Results & Data Results & Data Vital Signs (Past 12 Hours) Vital Signs Temp Pulse Pulse Resp BP BP Pulse Ox 01/11/23 08:31 66 18 117/77 98 01/11/23 08:11 71 01/11/23 07:10 36.8 C 78 18 132/78 98 O2 Del Method 01/11/23 08:31 01/11/23 08:11 01/11/23 07:10 Room Air Code Status & VTE Plan VTE Prophylaxis Plan VTE Prophylaxis will be ordered: Yes
[2023-01-11] MEDS ORDERED: HYDROmorphone INJ 1 MG/ML SYRINGE ONE (10:05)
[2023-01-11] MEDS ORDERED: PROMETHAZINE HCL 12.5 MG in SODIUM CHLORIDE 0.9% 50 ML IV PRN (13:02)
[2023-01-11] MEDS ORDERED: LORazepam 0.5 MG TAB PO PRN (13:02)
[2023-01-11] MEDS ORDERED: ONDANSETRON 4 MG OD TAB PO PRN (13:02)
[2023-01-11] MEDS ORDERED: HYDROmorphone INJ 0.5 MG/0.5 ML SYR IV PRN (13:02)
[2023-01-11] MEDS ORDERED: ACETAMINOPHEN 1,000 MG/100 ML VIAL IV PRN (13:02)
[2023-01-11] MEDS ORDERED: METOCLOPRAMIDE HCL INJ 5 MG/ML 2 ML VIAL IV PRN (13:02)
[2023-01-11] MEDS ORDERED: NALOXONE HCL 0.4 MG/1 ML VIAL/CARP IV PRN (13:02)
[2023-01-11] MEDS: HYDROmorphone INJ 1 MG/ML SYRINGE IV PRN ×5 (13:24→23:21)
--- NOTE | 2023-01-11 13:25 | Hospitalist Consultation ---
Date of Consultation January 11, 2023 Assessment & Plan (1) Diabetes mellitus, type 2: Chronic and stable Last HgbA1C was 6.9 in November 2022 Hold Metformin and Jardiance - ISS while in patient - Carb consistent diet will get U/A for mildly elevated but stable leukocytosis (also had steroids recently with no fever) (2) Hypertension: Chronic and stable Continue Atenolol and Lisinopril (3) Hyperlipidemia: Chronic and stable Continue Lipitor and fenofibrate (4) Anxiety: Chronic and stable Continue Ativan prn (5) Postoperative back pain: Acute and unstable see above NPO at midnight for OR tomorrow (6) Spinal stenosis of lumbar region with radiculopathy: Chronic unstable see above (7) Glaucoma: Chronic and stable continue eye gtts Supervising Physician Co-Signing Physician Notes Patient seen and examined, chart reviewed, I agree with the assessment and plan per ERIK Rodriguez as above. In brief, patient is a 57yo female with history of DM, HTN, HLP, recent lumbar decompression with Dr. Herndon on 12/04/22 with return to the OR on 12/11/22 for hematoma evacuation presenting with severe low back pain and pain in her left calf. She has been uncomfortable, sleeping in a chair with her legs dangling. Poor appetite secondary to pain. Plan to go to OR in AM. Patient denies chest pain, cough, SOB. She tolerated her recent surgeries with no complications. On exam she is resting comfortably, NAD Skin - warm, dry, intact, no rashes/lesions HEENT - MMM, Neck supple Heart - +S1/S2, regular, no m/r/g Lungs - CTA Abd - +BS, soft, NT/ND Ext - trace edema of biateral LE - tenderness with palpation LLE. No rubor or asymmetry Neuro -grossly non-focal Labs and images reviewed Assessment/Plan: 57yo female with recent lumbar decompression on 12/04 with subsequent hematoma evacuation on 12/11 presenting wtih ongoing pain - plan for OR in AM with Dr. Herndon -Continue Atenolol -Will hold Lisinopril for OR tomorrow and resume on 01/13/23 AM -Pain and nausea control per primary team -Remainder as above History of Present Illness Reason for Consultation: medical management Requesting Physician: Dr. Juan Herndon Attending Physician: Samir Herndon, DO History of Present Illness Veronica Gresham is a 57 year old with a past medical history of DM, HTN, HLD, glaucoma, anxiety, spinal stenosis with recent lumbar decompression 12/[address] Herndon and subsequent return to the operating room on 12/11 for hematoma evacuation and revision who presented to the ER again today with complaints of severe low back pain with radiation down left later calf. Patient tells me that she has not been able to sleep more than 2-3 hours at a time and that she has lost about 20# over the past month due to decreased appetite secondary to her pain. A routine consult was placed with the hospitalist service for medical management on tis patient. Dr Herndon is planning on surgery tomorrow to consider revision fusion L4-L5 L5-S1 and address any development of neural compression and loosening of hardware. Allergies Allergy/AdvReac Type Severity Reaction Status Date / Time No Known Allergies Allergy Verified 01/11/23 10:27 Home Medications Medication Instructions Recorded Confirmed Type atenolol 25 mg tablet 25 mg PO QPM 06/06/19 01/11/23 History atorvastatin 20 mg tablet (Lipitor) 20 mg PO HS 06/06/19 01/11/23 History cetirizine 10 mg tablet (Zyrtec) 10 mg PO QAM 06/06/19 01/11/23 History fenofibrate nanocrystallized 145 145 mg PO HS 06/06/19 01/11/23 History mg tablet lorazepam 1 mg tablet (Ativan) 1 mg PO HS PRN Anxiety 06/06/19 01/11/23 History metformin 500 mg tablet 500 mg PO HS 06/06/19 01/11/23 History travoprost 0.004 % eye drops 1 drp OPB HS 06/06/19 01/11/23 History (Travatan Z) dorzolamide 22.3 mg-timolol 6.8 1 drp ophthalmic (eye) [facility] 11/02/20 01/11/23 History mg/mL eye drops lisinopril 20 mg tablet 20 mg PO QAM 11/02/20 01/11/23 History tizanidine 4 mg tablet 4 mg PO BID PRN muscle spasticity 10/06/22 01/11/23 Rx #30 tabs acetaminophen 500 mg tablet 1,000 mg PO DIRECTED PRN 12/02/22 01/11/23 History (Tylenol Extra Strength) PAIN/FEVER docusate sodium 100 mg capsule 100 mg PO DAILY 12/02/22 01/11/23 History (Colace) empagliflozin 25 mg tablet 25 mg PO QAM 12/02/22 01/11/23 History (Jardiance) oxycodone 5 mg tablet 5 mg PO Q6H PRN pain #30 tabs 12/05/22 01/11/23 Rx tramadol 50 mg tablet 50 mg PO Q6H PRN pain, moderate 12/05/22 01/11/23 Rx #30 tabs lidocaine 5 % topical patch 1 patch topical DAILY #15 ea 12/07/22 01/11/23 Rx ondansetron HCl 4 mg tablet 4 mg PO QID PRN nausea and 12/07/22 01/11/23 Rx vomiting #20 tabs gabapentin 300 mg capsule 300 mg PO DAILY #30 caps 12/14/22 01/11/23 Rx gabapentin 600 mg tablet 600 mg PO HS #30 tabs 12/14/22 01/11/23 Rx hydromorphone 2 mg tablet 4 mg PO Q6 PRN pain #30 tabs 12/14/22 01/11/23 Rx (Dilaudid) oxycodone 5 mg tablet 5 mg PO TID PRN pain #14 tabs 01/09/23 01/11/23 Rx methylprednisolone 4 mg tablets in 4 mg PO BID 01/11/23 01/11/23 History a dose pack Patient History Medical History Anxiety Diabetes mellitus, type 2 Elevated platelet count FOLLOWS HEMATOLOGY (BEING MONITORED) Glaucoma Hx of colonic polyps Hyperlipidemia Hypertension Surgical History History of cardiac cath 7 YRS AGO @ [place] > FOR CHEST PAIN > NO STENTS History of section X 1 History of cholecystectomy History of colonoscopy History of dilatation and curettage History of endoscopic sinus surgery History of tooth extraction Family History Grandmother (Maternal) Diabetes Family history of diabetes mellitus Mother Family history of diabetes mellitus Other No family history of adverse response to anesthesia Social History Smoking Status: Current some day smoker Tobacco Type: Cigarettes Cigarettes Per Day: 10; Second Hand Exposure: Yes (IN THE PAST); Do You Dip or Chew Tobacco: No; Hx Alcohol Use: Yes Hx Substance Use: No Preferred Language: Nigerien Communication Ability: Effective 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 Beliefs That Will Affect Care: None Current Living Situation: Spouse and Family Current Living Situation Comment: Lives with and step son Feels Safe at Home: Yes Assistive Devices: Walker Review of Systems Constitutional: + anorexia and + weight loss; no fever and no chills Respiratory: no cough, no chest congestion and no dyspnea Cardiovascular: no chest pain, no chest pain at rest, no palpitations, no edema and no calf pain Gastrointestinal: no abdominal pain, no nausea, no vomiting and no change in bowel habits Genitourinary: + urinary hesitancy and + urinary urgency; no dysuria, no urinary frequency, no hematuria and no flank pain Integumentary: no rash, no lesions and no new lesions Psychiatric: + change in appetite and + anxiety; no depression, no suicidal ideation and no confusion Endocrine: no polydipsia, no polyphagia and no polyuria Physical Exam Constitutional: WD/WN, vitals as above Neck: trachea midline, no thyromegaly Respiratory: normal respiratory effort, lungs clear to auscultation Cardiovascular: Rate/Rhythm: regular rate and regular rhythm Heart Sounds: normal S1 and normal S2; no murmur Extremities: normal capillary refill; no calf tenderness and no edema Gastrointestinal (Abdomen): normal bowel sounds, soft, nontender, no hepatosplenomegaly Skin: no rashes, warm and dry Psychiatric: A+Ox3, euthymic affect Results & Data Results & Data Vital Signs (Past 12 Hours) Vital Signs Temp Pulse Pulse Resp BP BP Pulse Ox 01/11/23 11:00 71 18 98 01/11/23 10:00 71 20 123/72 98 01/11/23 08:31 66 18 117/77 98 01/11/23 08:11 71 01/11/23 07:10 36.8 C 78 18 132/78 98 O2 Del Method 01/11/23 11:00 Room Air 01/11/23 10:00 Room Air 01/11/23 08:31 01/11/23 08:11 01/11/23 07:10 Room Air Laboratory Results Abnormal lab results 01/11/23 01/11/23 Range/Units 08:07 08:07 WBC 12.50 H (4.8-10.8) K/ul Plt Count 452 H (130-400) K/uL Neut # (Auto) 8.36 H (1.40-6.50) K/uL Sodium 135 L (136-145) mmol/L Anion Gap 13 H (3-11) BUN/Creatinine Ratio 27.0 H (10-20) Calcium 10.5 H (8.6-10.3) mg/dl Diagnostic Findings Lumbar Spine CT 01/11/23 07:59 CT lumbar spine wo con HISTORY: 57 years-old Female back pain acute low back pain with prior surgery COMPARISON: MRI lumbar spine 01/09/2023 TECHNIQUE: Multiple axial CT images of the lumbar spine were obtained without the use of IV contrast. A dose lowering technique was used consistent with the principals of ALARA. FINDINGS: Atherosclerosis of the aorta. The imaged intra-abdominal structures are unremarkable. No significant paravertebral edema or epidural collections identified. No acute fracture, subluxation or endplate erosion identified. L5-S1 laminectomy and discectomy with posterior and right carotid screw fusion hardware at L4-S1. Prior removal of the left L5 pedicle screw. Unchanged 4 mm anterolisthesis L5 on S1. The L5-S1 disc spacer is again noted within the left lateral aspect of the intervertebral disc space. The left L4 screw extends medial to the pedicle extending into the left lateral recess. The hardware appears to be intact. Streak artifact from the hardware limits the study. Mild multilevel and vertebral disc space narrowing with spondylitic spurring, annular disc bulging and probably moderate facet arthrosis. The small probable seroma within the operative bed described on MRI is not well visualized by CT. The previously described areas of central canal and foraminal narrowing are also better evaluated on MRI. Suboptimal visualization of the neural foramen at L5-S1 secondary to the aforementioned streak artifact. There is apparent at least moderate to severe bilateral foraminal narrowing at this level. IMPRESSION: 1. No acute fracture or subluxation. 2. L5 laminectomy with L4-S1 posterior interbody chuck and screw fusion and L5-S1 discectomy redemonstrated. Artifact from the hardware limits the study, notably evaluation of the L5-S1 neural foramina. 3. The left L4 pedicle screw extends medial to the pedicle into the left lateral recess and the L5-S1 disc spacer is noted within the left lateral aspect of the disc space extending into the adjacent lateral recess. 4. Central canal and neural foraminal stenosis is better evaluated on the comparison MRI study. ACT 112: Negative or not required by law. The above report was generated using voice recognition software. It may contain grammatical, syntax or spelling errors. Electronically signed by: Jayson Floyd M.D. 01/11/2023 8:47 AM PG Care Time/CCT Total # of Minutes Spent Total Time Spent with Patient: Total time spent is greater than 50% in coordination of care (as documented) at patient's floor/unit and/or counseling patient: Coding Level of Care Code 66193 IN/OBS CONSULT LVL 2,35M Diagnoses Diabetes mellitus, type 2 E11.9 Hypertension I10 Hyperlipidemia E78.5 Anxiety F41.9 Postoperative back pain G89.18; M54.9 Spinal stenosis of lumbar region with radiculopathy M48.061; M54.16 Glaucoma H40.9
[2023-01-11] MEDS ORDERED: GLUCOSE 40% GEL 15 GM TUBE PO PRN (13:48)
[2023-01-11] MEDS ORDERED: CARBOHYDRATES FOR HYPOGLYCEMIA PO PRN (13:48)
[2023-01-11] MEDS ORDERED: GLUCOSE 10 TAB/TUBE PO PRN (13:48)
[2023-01-11] MEDS ORDERED: DEXTROSE 50% 50 ML SYRINGE IV PRN (13:48)
[2023-01-11] MEDS ORDERED: GLUCAGON FOR INJ 1 MG VIAL SQ PRN (13:48)
--- NOTE | 2023-01-11 13:49 | Anesthesiology Consultation ---
Date of Service January 11, 2023 Assessment & Plan (1) Encounter for pre-operative examination: Chart Review Chart Review: Acceptable Risk for Surgery History Surgery Operation Date: 01/12/23 13:05 Proposed Procedures p L4-L5, L5-S1 Revision of Fusion - Samir Herndon DO Height/Weight Height: 5 ft 1 in Weight: 77.9 kg Allergies Allergy/AdvReac Type Severity Reaction Status Date / Time No Known Allergies Allergy Verified 01/11/23 10:27 Medications Home Medications Medication Instructions Recorded Confirmed Last Taken atenolol 25 mg tablet 25 mg PO QPM 06/06/19 01/11/23 01/10/23 atorvastatin 20 mg tablet (Lipitor) 20 mg PO HS 06/06/19 01/11/23 01/10/23 cetirizine 10 mg tablet (Zyrtec) 10 mg PO QAM 06/06/19 01/11/23 01/11/23 fenofibrate nanocrystallized 145 145 mg PO HS 06/06/19 01/11/23 01/10/23 mg tablet lorazepam 1 mg tablet (Ativan) 1 mg PO HS PRN Anxiety 06/06/19 01/11/23 01/10/23 metformin 500 mg tablet 500 mg PO HS 06/06/19 01/11/23 01/10/23 travoprost 0.004 % eye drops 1 drp OPB HS 06/06/19 01/11/23 12/08/22 (Travatan Z) dorzolamide 22.3 mg-timolol 6.8 1 drp ophthalmic (eye) [facility] 11/02/20 01/11/23 01/11/23 mg/mL eye drops lisinopril 20 mg tablet 20 mg PO QAM 11/02/20 01/11/23 01/11/23 tizanidine 4 mg tablet 4 mg PO BID PRN muscle spasticity 10/06/22 01/11/23 Unknown #30 tabs acetaminophen 500 mg tablet 1,000 mg PO DIRECTED PRN 12/02/22 01/11/23 Unknown (Tylenol Extra Strength) PAIN/FEVER docusate sodium 100 mg capsule 100 mg PO DAILY 12/02/22 01/11/23 01/11/23 (Colace) empagliflozin 25 mg tablet 25 mg PO QAM 12/02/22 01/11/23 01/11/23 (Jardiance) oxycodone 5 mg tablet 5 mg PO Q6H PRN pain #30 tabs 12/05/22 01/11/23 Unknown tramadol 50 mg tablet 50 mg PO Q6H PRN pain, moderate 12/05/22 01/11/23 Unknown #30 tabs lidocaine 5 % topical patch 1 patch topical DAILY #15 ea 12/07/22 01/11/23 12/08/22 ondansetron HCl 4 mg tablet 4 mg PO QID PRN nausea and 12/07/22 01/11/23 Unknown vomiting #20 tabs gabapentin 300 mg capsule 300 mg PO DAILY #30 caps 12/14/22 01/11/23 01/11/23 gabapentin 600 mg tablet 600 mg PO HS #30 tabs 12/14/22 01/11/23 01/10/23 hydromorphone 2 mg tablet 4 mg PO Q6 PRN pain #30 tabs 12/14/22 01/11/23 Unknown (Dilaudid) oxycodone 5 mg tablet 5 mg PO TID PRN pain #14 tabs 01/09/23 01/11/23 Unknown methylprednisolone 4 mg tablets in 4 mg PO BID 01/11/23 01/11/23 01/11/23 a dose pack Active Medications Generic Name Dose Route Start Last Admin Trade Name Derickq PRN Reason Stop Dose Admin Hydromorphone HCl 1 mg 01/11/23 13:02 01/11/23 13:24 Hydromorphone Inj 1 Mg/Ml Syringe IV 01/25/23 13:01 1 mg Q3H PRN Administration severe pain (scale 7-10) Morphine Sulfate 4 mg 01/11/23 07:59 01/11/23 08:35 Morphine Sulfate 4 Mg/Ml 1 Ml Carp\Vial IV 01/25/23 07:58 4 mg Q1H PRN Administration Severe Pain (Rating 7,8,9,10) Past Medical History Medical History Anxiety Diabetes mellitus, type 2 Elevated platelet count FOLLOWS HEMATOLOGY (BEING MONITORED) Glaucoma Hx of colonic polyps Hyperlipidemia Hypertension Past Family History Family History Grandmother (Maternal) Diabetes Family history of diabetes mellitus Mother Family history of diabetes mellitus Other No family history of adverse response to anesthesia Past Surgical History Surgical History History of cardiac cath 7 YRS AGO @ [place] > FOR CHEST PAIN > NO STENTS History of section X 1 History of cholecystectomy History of colonoscopy History of dilatation and curettage History of endoscopic sinus surgery History of tooth extraction Social History Smoking Status: Current some day smoker tobacco type: cigarettes Smoking cigarettes per day: 10 Do You Dip or Chew Tobacco: No Hx Alcohol Use: Yes alcohol intake frequency: holidays/special occasions only Hx Substance Use: No substance use type: does not use Physical Exam Vital Signs Last Vital Signs Temp 36.8 C 01/11/23 07:10 Pulse 71 01/11/23 11:00 Resp 18 01/11/23 11:00 BP 123/72 01/11/23 10:00 Pulse Ox 98 01/11/23 11:00 O2 Del Method Room Air 01/11/23 11:00 Testing Laboratory Results 01/11/23 08:07 01/11/23 08:07 Electrocardiogram Date: 12/03/22 Findings: + NSST changes and + SB @ (58) Chest X-Ray Date: 12/03/22 Findings: + NAD
[2023-01-11] MEDS: SODIUM CHLORIDE 0.9% 1000ML 1,000 ML IV SCH (14:08)
[2023-01-11 16:20] LABS: Appearance Urine Clear (Clear); Bacteria Urine Automated Negative (Negative); Bilirubin Urine Negative (Negative); Blood Urine 1+ (Negative); Cast Urine Automated 0 /lpf (0-5); Color Urine Yellow; Glucose Urine UA 3+ (Negative); Ketones Urine Negative (Negative); Leukocyte Esterase Urine Negative (Negative); Nitrite Urine Negative (Negative); Protein Urine Negative (Negative); Specific Gravity Urine 1.017 (1.000-1.030); Urobilinogen Urine Negative (Negative); pH Urine 7.5 (4.5-7.5)
[2023-01-11] MEDS: INSULIN ASPART PER UNIT CHARGE SC SCH ×2 (17:46→21:27)
[2023-01-11] MEDS: ONDANSETRON INJ 2 MG/ML 2 ML VIAL IV PRN (18:34)
[2023-01-11] MEDS: LORazepam 2 MG/1 ML VIAL IV PRN (21:26)
[2023-01-11] MEDS: TRAVOPROST Z 0.004% OPH SOLN 2.5 ML BTL OPB SCH (21:28)
[2023-01-11] MEDS: ATENOLOL 25 MG TABLET PO SCH (21:28)
[2023-01-11] MEDS: DORZOLAMIDE/TIMOLOL 22.3/6.8MG/ML 10 ML BTL OP SCH (21:28)
[2023-01-11] MEDS: GABAPENTIN 600 MG TAB PO SCH (21:29)
[2023-01-11] MEDS: FENOFIBRATE NANOCRYSTALLIZED 145 MG TABLET PO SCH (21:29)
[2023-01-11] MEDS: ATORVASTATIN 20 MG TAB PO SCH (21:29)
[2023-01-12] MEDS: HYDROmorphone INJ 1 MG/ML SYRINGE IV PRN ×14 (01:08→23:05)
[2023-01-12] MEDS: MoRPHine SULFATE 4 MG/ML 1 ML CARP\\VIAL IV PRN (02:29)
[2023-01-12] MEDS: SODIUM CHLORIDE 0.9% 1000ML 1,000 ML IV SCH ×2 (03:59→18:25)
[2023-01-12] MEDS: ONDANSETRON INJ 2 MG/ML 2 ML VIAL IV PRN (04:01)
[2023-01-12] MEDS: oxyCODONE HCL IR 5 MG TAB (IMMEDIATE RELEASE) PO PRN (04:55)
[2023-01-12] MEDS: INSULIN ASPART PER UNIT CHARGE SC SCH ×4 (05:27→21:07)
[2023-01-12] MEDS ORDERED: ceFAZolin 2000MG 2,000 MG/15 ML SYR IV SCH (06:00)
[2023-01-12] MEDS: LORazepam 2 MG/1 ML VIAL IV PRN ×2 (06:39→18:51)
[2023-01-12] MEDS: DOCUSATE SODIUM 100 MG CAP PO SCH (08:16)
[2023-01-12] MEDS: GABAPENTIN 300 MG CAP PO SCH (08:16)
[2023-01-12] MEDS: CETIRIZINE HCL 10 MG TABLET PO SCH (08:18)
[2023-01-12] MEDS: DORZOLAMIDE/TIMOLOL 22.3/6.8MG/ML 10 ML BTL OP SCH ×2 (09:58→20:30)
[2023-01-12] MEDS ORDERED: ePHEDrine sulfate 50 MG/ML AMP IV PRN (12:42)
[2023-01-12] MEDS ORDERED: ATROPINE SULFATE 0.1 MG/ML 10ML SYR IV PRN (12:42)
[2023-01-12] MEDS ORDERED: ONDANSETRON INJ 2 MG/ML 2 ML VIAL IV PRN (12:42)
--- NOTE | 2023-01-12 12:44 | Hospitalist Progress Note ---
Date of Service January 12, 2023 Assessment & Plan (1) Diabetes mellitus, type 2: Plan: Chronic and stable Last HgbA1C was 6.9 in November 2022 Hold Metformin and Jardiance - ISS while in patient - Carb consistent diet U/A likely contaminate, no nitrates or bacteria (2) Hypertension: Plan: Chronic and stable BP 126/78 Continue Atenolol Hold Lisinopril today - resume tomorrow AM (3) Hyperlipidemia: Plan: Chronic and stable Continue Lipitor and fenofibrate (4) Anxiety: Plan: Chronic and stable Continue Ativan prn (5) Postoperative back pain: Plan: Acute and unstable see above NPO at midnight for OR today (6) Spinal stenosis of lumbar region with radiculopathy: Plan: Chronic unstable see above (7) Glaucoma: Plan: Chronic and stable continue eye gtts Admission and Anticipated Discharge Date Admission Date: January 11, 2023 Subjective Patient seen this AM on rounds she was resting in bed comfortably with her dtr at bedside. She is scheduled to go to the OR this afternoon. she states she was uncomfortable last night but was able to sleep some. She denies any new complaints. She is passing flatus, has no CP, SOB, Dyspnea. Review of Systems Constitutional: + anorexia and + weight loss; no fever and no chills Respiratory: no cough, no chest congestion and no dyspnea Cardiovascular: no chest pain, no chest pain at rest, no palpitations, no edema and no calf pain Gastrointestinal: no abdominal pain, no nausea, no vomiting and no change in bowel habits Genitourinary: + urinary hesitancy and + urinary urgency; no dysuria, no urinary frequency, no hematuria and no flank pain Integumentary: no rash, no lesions and no new lesions Psychiatric: + change in appetite and + anxiety; no depression, no suicidal ideation and no confusion Endocrine: no polydipsia, no polyphagia and no polyuria Physical Exam Constitutional: WD/WN, vitals as above Neck: trachea midline, no thyromegaly Respiratory: normal respiratory effort, lungs clear to auscultation Cardiovascular: Rate/Rhythm: regular rate and regular rhythm Heart Sounds: normal S1 and normal S2; no murmur Extremities: normal capillary refill; no calf tenderness and no edema Gastrointestinal (Abdomen): normal bowel sounds, soft, nontender, no hepatosplenomegaly Skin: no rashes, warm and dry Psychiatric: A+Ox3, euthymic affect Results & Data Results & Data Vital Signs (Past 12 Hours) Vital Signs Temp Pulse Pulse Resp BP Pulse Ox O2 Del Method 01/12/23 12:20 36.8 C 67 20 126/78 99 Room Air 01/12/23 07:51 36.7 C 62 14 119/78 97 Room Air 01/12/23 05:12 36.7 C 62 18 118/76 97 Room Air Laboratory Results Abnormal lab results 01/11/23 01/11/23 01/12/23 Range/Units 16:08 20:20 00:03 POC Glucose 133 H 105 H (70-99) mg/dl Urine Glucose (UA) 3+ H (Negative) Urine Blood 1+ H (Negative) Urine RBC (Auto) 10-30 H (0-4) /hpf U Epithel Cells (Auto) 5-10 H (0-5) /lpf PG Care Time/CCT Total # of Minutes Spent Total Time Spent with Patient: Total time spent is greater than 50% in coordination of care (as documented) at patient's floor/unit and/or counseling patient: Coding Level of Care Code 78223 SUB INP/OBS CARE 08/16MIN Diagnoses Diabetes mellitus, type 2 E11.9 Hypertension I10 Hyperlipidemia E78.5 Anxiety F41.9 Postoperative back pain G89.18; M54.9 Spinal stenosis of lumbar region with radiculopathy M48.061; M54.16 Glaucoma H40.9
[2023-01-12] MEDS ORDERED: ceFAZolin 330 MG/ML 1 GM VIAL ONE (13:17)
[2023-01-12] MEDS ORDERED: BUPIVACAINE/EPINEPHRINE 0.25% 1:200,000 30 ML VIAL ONE (13:17)
--- NOTE | 2023-01-12 13:19 | History & Physical Bridge Note ---
Date of Service January 12, 2023 History & Physical Bridge Note I have examined the patient, reviewed the History & Physical and in the interval since the performance of the History & Physical I have noted the following changes of clinical significance: no changes noted Revision fusion L4-L5 L5-S1
[2023-01-12] MEDS ORDERED: GENTAMICIN SULFATE 40 MG/ML 2 ML VIAL ONE (13:21)
[2023-01-12] MEDS ORDERED: VANCOMYCIN HCL 1000MG/20ML VIAL ONE (13:22)
[2023-01-12] MEDS ORDERED: FLOSEAL HEMOSTATIC MATRIX 10ML TOP ONE (14:49)
--- NOTE | 2023-01-12 15:12 | Operative Report ---
Post Operative Report Pre & Post Diagnosis Operation Date: 01/12/23 13:05 Pre-Op Diagnosis: Loosening of hardware lumbar fusion with leg pain Post-Op Diagnosis: Same I identified the patient and participated in the time-out.: Yes Procedure Operation Date: 01/12/23 13:05 Actual Procedures 1. Removal of posterior instrumentation L4-S1. #2 exploration of fusion L4-S1. #3 placement of posterior instrumentation L4-S1. #4 placement infuse collagen sponge by master graft in the posterior gutters L4-S1. #5 revision decompression L4-L5 L5-S1. Surgeon Samir Herndon, DO Draper[employer] Sewer Hand Stephane Zimmerman Estimated Blood Loss 100 Findings Consistent with Post-Op Diagnosis Specimens none Indications This is a 57-year-old female that presents with steady decline in status over the past several weeks with worsening back and leg pain. Updated imaging demonstrates suspicion for loosening of instrumentation and migration of bone graft into the neuroforamen. Subsequently she is here for revision procedure. Description of Procedure Patient was met with identified informed consent obtained. Patient was then taken to the operative suite underwent ablation placed in a prone position the [place] table top Surjit frame. All bony promises well-padded eyes inspected to ensure no external pressure placed on the. This point lumbar spine is prepped and draped in a sterile fashion. Sharp dissection with the assistance of Bovie cautery to form down to and exposing the instrumentation at L4-S1 bilaterally. Then remove the end caps and the rods. I explored the fusion mass noted to be immature. The pedicle screws were loose bilaterally at the S1 levels and suspicion of loosening at L4 on the left. The the screws were removed and replaced with fluoroscopic visualization. Appropriate sized rods placed. I did explore the foramen of L5-S1 on the left noting bone graft tear migrating into the foramen as well as bony spurs still present. Revision decompression of L4- L5 L5-S1 was performed including removal of the lamina on the left at L4. The rods then locked into final position bilaterally. The transverse processes of L4-L5 and sacral ala were then burred to subcortically bone. Infuse bone sponge, master graft was then placed in the posterior gutters. 15 round CHRISTOPHER drain was inserted. Approximately 10 cc of Stimulan beads impregnated with vancomycin and gentamicin were placed throughout the incision. Incision was then closed with 1 Vicryl to fascia 2-0 Vicryl subcutaneously and 4 Monocryl for final closure. Steri-Strips sterile testings placed. Patient waken taken PACU stable condition. Please note spinal cord monitoring was utilized at the procedure no changes noted. Lastly Stephane Zimmerman was present at the entire surgery and while the patient positioning complex portions of the surgery and final skin closure. I attest to the content of the Intraoperative Record and any orders documented therein. Any exceptions are noted below.
[2023-01-12] MEDS: fentaNYL citrate PF 100 MCG/2 ML VIAL IV PRN ×4 (15:42→15:57)
--- NOTE | 2023-01-12 15:44 | Fluoroscopy Report ---
FL lumbar spine 2-3V CLINICAL HISTORY: L4-S1 REVISION COMPARISON STUDY: CT 01/11/2023 FLUOROSCOPY TIME: 11.3 seconds FLUOROSCOPY IMAGES: 2 EXPOSURE DOSE: 6.29 mGy FINDINGS: Posterior interbody chuck and screw fusion hardware at L4-S1. L5-S1 discectomy. A surgical sp onge is noted posterior to the hardware. Mild spondylitic spurring. Note that the images were submitt ed following completion of the surgery. IMPRESSION: Fluoroscopic assistance as above. ACT 112: Negative or not required by law. Electronically signed by: Jayson Floyd M.D. 01/12/2023 3:43 PM
--- NOTE | 2023-01-12 16:41 | Anesthesiology Progress Note ---
Date of Service January 12, 2023 Anesthesia Post Procedure Vital Signs Vital Signs: Temp Pulse Pulse Resp BP Pulse Ox O2 Del Method 01/12/23 16:30 71 14 150/82 H 99 Nasal Cannula 01/12/23 16:20 71 16 152/84 H 99 Nasal Cannula 01/12/23 16:10 67 12 157/82 H 98 Nasal Cannula 01/12/23 16:00 72 13 167/84 H 100 Nasal Cannula 01/12/23 15:50 66 15 169/79 H 97 Oxymask 01/12/23 15:40 66 15 161/91 H 98 Oxymask 01/12/23 15:34 66 16 158/81 H 100 Oxymask 01/12/23 12:20 36.8 C 67 20 126/78 99 Room Air 01/12/23 07:51 36.7 C 62 14 119/78 97 Room Air 01/12/23 05:12 36.7 C 62 18 118/76 97 Room Air 01/11/23 20:18 36.8 C 71 16 108/70 97 Room Air O2 Flow Rate 01/12/23 16:30 2 01/12/23 16:20 2 01/12/23 16:10 2 01/12/23 16:00 2 01/12/23 15:50 10 01/12/23 15:40 10 01/12/23 15:34 10 01/12/23 12:20 01/12/23 07:51 01/12/23 05:12 01/11/23 20:18 Pain Intensity Left Hip: Pain Intensity: 9 Left Leg: Pain Intensity: 7 Transfer of Care Handoff Completed per policy Notes Mental Status: alert / awake / arousable and participated in evaluation Patient Amnestic to Procedure: Yes Nausea / Vomiting: adequately controlled Pain: adequately controlled Airway Patency, RR, SpO2: stable & adequate BP & HR: stable & adequate Hydration State: stable & adequate Anesthetic Complications: no major complications apparent and Pt Satisfied with anesthetic care
[2023-01-12] MEDS: FENOFIBRATE NANOCRYSTALLIZED 145 MG TABLET PO SCH (20:30)
[2023-01-12] MEDS: GABAPENTIN 600 MG TAB PO SCH (20:30)
[2023-01-12] MEDS: ATENOLOL 25 MG TABLET PO SCH (20:31)
[2023-01-12] MEDS: ATORVASTATIN 20 MG TAB PO SCH (20:31)
[2023-01-12] MEDS: TRAVOPROST Z 0.004% OPH SOLN 2.5 ML BTL OPB SCH (20:31)
[2023-01-13] MEDS: HYDROmorphone INJ 1 MG/ML SYRINGE IV PRN ×9 (02:20→22:38)
--- NOTE | 2023-01-13 08:20 | Orthopedic Progress Note ---
Date of Service January 13, 2023 Assessment & Plan (1) Spinal stenosis of lumbar region with radiculopathy: Plan: This time initiate physical therapy monitor her CHRISTOPHER output hopefully transition to home in the next few days. Admission and Anticipated Discharge Date Admission Date: January 11, 2023 Subjective Patient's back pain is controlled leg symptoms improved Physical Exam Physical Exam: Patient is lying in bed at this time. She has good strength testing lower extremities. There is some tenderness palpation of the left lateral malleolus. There is no abnormal skin markings. No appreciable swelling. Results & Data Vital Signs (Past 12 Hours) Vital Signs Temp Pulse Resp BP BP Pulse Ox O2 Del Method 01/13/23 07:59 36.6 C 61 16 118/70 97 Room Air 01/13/23 00:00 36.2 C L 89 22 148/81 H 98 Room Air
[2023-01-13] MEDS: oxyCODONE HCL IR 5 MG TAB (IMMEDIATE RELEASE) PO PRN ×2 (08:22→12:22)
[2023-01-13] MEDS: CETIRIZINE HCL 10 MG TABLET PO SCH (08:23)
[2023-01-13] MEDS: DOCUSATE SODIUM 100 MG CAP PO SCH (08:23)
[2023-01-13] MEDS: lisinopril 20 MG TAB PO SCH (08:23)
[2023-01-13] MEDS: GABAPENTIN 300 MG CAP PO SCH (08:24)
[2023-01-13] MEDS: DORZOLAMIDE/TIMOLOL 22.3/6.8MG/ML 10 ML BTL OP SCH ×2 (08:24→20:45)
[2023-01-13] MEDS: EMPAGLIFLOZIN 25 MG TAB PO SCH (08:25)
[2023-01-13] MEDS: INSULIN ASPART PER UNIT CHARGE SC SCH ×4 (08:31→20:46)
[2023-01-13] MEDS: ONDANSETRON INJ 2 MG/ML 2 ML VIAL IV PRN (08:51)
[2023-01-13] MEDS: SODIUM CHLORIDE 0.9% 1000ML 1,000 ML IV SCH (09:06)
[2023-01-13 10:03] LABS: Basophils # (auto) 0.06 K/uL (0-0.2); Basophils % (auto) 0.4 %; Eosinophils # (auto) 0.03 K/uL (0-0.50); Eosinophils % (auto) 0.2 %; Hematocrit (blood only) 35.8 % (37.0-47.0); Hemoglobin 11.7 g/dl (12.0-16.0); Immature Granulocytes # (auto) 0.05 K/uL (0.01-0.20); Immature Granulocytes % (auto) 0.3 %; Lymphocytes # (auto) 2.98 K/uL (1.2-3.4); Lymphocytes % (auto) 20.1 %; Mean Corpuscular Hemoglobin 29.9 pg (25.0-34.0); Mean Corpuscular Hgb Conc 32.7 g/dL (32.0-36.0); Mean Corpuscular Volume 91.6 fL (80.0-100.0); Mean Platelet Volume 9.3 fL (9.4-12.4); Monocytes # (auto) 0.98 K/uL (0.11-0.59); Monocytes % (auto) 6.6 %; Neutrophils # (auto) 10.75 K/uL (1.40-6.50); Neutrophils % (auto) 72.4 %; Platelet Count 409 K/uL (130-400); RDW Coefficient of Variation 13.5 % (11.5-14.5); RDW Standard Deviation 45.8 fL (36.4-46.3); Red Blood Count 3.91 M/uL (4.20-5.40); White Blood Count 14.85 K/ul (4.8-10.8)
[2023-01-13 10:17] LABS: Albumin Globulin Ratio 1.4 (0.9-2); Albumin Level 3.6 gm/dl (3.4-5.0); BUN Creatinine Ratio 21.8 (10-20); Bilirubin,Total 0.4 mg/dl (0.2-1.0); Calcium 9.6 mg/dl (8.6-10.3); Creatinine Clr Calc Pharmacy 106.6 ml/min; Est GFR (African American) 120.7 ml/min; Est GFR (Non-African American) 104.1 ml/min; Globulin 2.6 gm/dl (2.5-4.0); Potassium 3.9 mmol/L (3.5-5.1); Total Protein 6.2 gm/dl (6.0-8.3)
--- NOTE | 2023-01-13 10:36 | XRay Report ---
XR ankle LT 2V CLINICAL HISTORY: pain TECHNIQUE: 2 views of the left ankle were obtained. Comparison: None available at the time of this dictation. FINDINGS: No acute fractures are present. The joint spaces are well preserved. The ankle mortise is intact. No soft tissue abnormality is seen. IMPRESSION: No evidence of acute bony injury. ACT 112: Negative or not required by law. Electronically signed by: Edd Alejo M.D. 01/13/2023 10:35 AM
[2023-01-13] MEDS: HYDROmorphone INJ 0.5 MG/0.5 ML SYR IV PRN (11:28)
--- NOTE | 2023-01-13 17:03 | Hospitalist Progress Note ---
Date of Service January 13, 2023 Assessment & Plan (1) Spinal stenosis of lumbar region with radiculopathy: Plan: Admitted for repeat lumbar back surgery. Had initial surgery over a month ago and then was readmitted for postoperative hematoma which was drained. Now returns for recurrent radicular symptoms On 01/12-s/p 1. Removal of posterior instrumentation L4-S1. #2 exploration of fusion L4-S1. #3 placement of posterior instrumentation L4-S1. #4 placement infuse collagen sponge by master graft in the posterior gutters L4-S1. #5 revision decompression L4-L5 L5-S1 EBL 100 mL, POD#1 hemoglobin 11.7 down from 14.6 preoperatively- consistent with acute blood loss anemia postoperatively Pain down the lower extremities is resolved but having some tightness in the lower extremities -Continue home gabapentin but dose corrected on home med rec and increased here to 600 Mg p.o. twice daily as she takes at home -Continue Tylenol as needed, IV Dilaudid as needed for severe pain, oxycodone p.o. and tramadol p.o. as needed for pain -Add back home cyclobenzaprine 10 mg p.o. twice daily as needed -Monitor for opioid-induced constipation-last bowel movement 01/10 (2) Diabetes mellitus, type 2: Plan: Chronic and stable Last HgbA1C was 6.9 in November 2022 Hold Metformin and -Continue Jardiance - ISS while in patient - Carb consistent diet (3) Anxiety: Plan: Acutely exacerbated by current medical condition She takes lorazepam scheduled 1 mg at nighttime-made this scheduled today She requests as needed dose be increased to 1 mg 3 times a day as needed-made this change (4) Hypertension: Plan: Blood pressures are controlled Continue Atenolol and lisinopril Renal function normal (5) Hyperlipidemia: Plan: Chronic and stable Continue Lipitor and fenofibrate (6) Glaucoma: Plan: Chronic and stable continue home eye gtts (7) Left ankle pain: Plan: Ongoing for several months, possibly due to antalgic gait from radiculopathy With tenderness of the anterior lateral ankle in the soft tissues, suspect tendinopathy X-ray of the ankle 01/12 negative for fracture Continue icing, range of motion exercises Recommend outpatient follow-up with orthopedics Plan Disposition-continued stay, hospitalist service will follow along Admission and Anticipated Discharge Date Admission Date: January 11, 2023 Subjective Patient does not have any further pain down the legs but feels like her calves are starting to tighten up again which is making her anxious. She is anxious that her surgery will not be successful. She is also been having left ankle swelling and pain anteriorly for the last couple of months. Had some nausea earlier which is improved. Has not moved her bowels since 01/10 which is not unusual for her. We reviewed her home medications and made some changes to doses which were recorded improperly on the home medication reconciliation. There were also some medications omitted such as cyclobenzaprine. Physical Exam Constitutional: WD/WN, vitals as above Neck: trachea midline, no thyromegaly Respiratory: normal respiratory effort, lungs clear to auscultation Cardiovascular: RRR, no murmur, no edema Chest (Breasts): Chest: normal inspection of chest Gastrointestinal (Abdomen): normal bowel sounds, soft, nontender, no hepatosplenomegaly Musculoskeletal: Extremities: + extremities abnormal to inspection (L ankle mild edema laterally,+TTP anterior lat), no cyanosis and no clubbing Ankle: no skin erythema and normal ROM of ankle Skin: no rashes, warm and dry Neurologic: moves all extremities and awake; no focal motor deficits Results & Data Results & Data Vital Signs (Past 12 Hours) Vital Signs Temp Pulse Resp BP Pulse Ox O2 Del Method 01/13/23 11:18 36.7 C 58 L 17 130/75 95 Room Air 01/13/23 07:59 36.6 C 61 16 118/70 97 Room Air Laboratory Results CBC, CMP reviewed PG Care Time/CCT Total # of Minutes Spent Total Time Spent with Patient: Total time spent is greater than 50% in coordination of care (as documented) at patient's floor/unit and/or counseling patient: Coding Level of Care Code 83495 SUB INP/OBS CARE 2/35MIN Diagnoses Spinal stenosis of lumbar region with radiculopathy M48.061; M54.16 Diabetes mellitus, type 2 E11.9 Anxiety F41.9 Hypertension I10 Hyperlipidemia E78.5 Glaucoma H40.9 Left ankle pain M25.572
[2023-01-13] MEDS: CYCLOBENZAPRINE HCL 10 MG TAB PO PRN (20:44)
[2023-01-13] MEDS: LORazepam 1 MG TAB PO SCH (20:44)
[2023-01-13] MEDS: ATENOLOL 25 MG TABLET PO SCH (20:45)
[2023-01-13] MEDS: ATORVASTATIN 20 MG TAB PO SCH (20:45)
[2023-01-13] MEDS: TRAVOPROST Z 0.004% OPH SOLN 2.5 ML BTL OPB SCH (20:46)
[2023-01-13] MEDS: GABAPENTIN 600 MG TAB PO SCH (20:46)
[2023-01-13] MEDS: FENOFIBRATE NANOCRYSTALLIZED 145 MG TABLET PO SCH (20:46)
[2023-01-14] MEDS: HYDROmorphone INJ 0.5 MG/0.5 ML SYR IV PRN (02:54)
[2023-01-14] MEDS: HYDROmorphone INJ 1 MG/ML SYRINGE IV PRN ×7 (05:09→21:38)
[2023-01-14 06:26] LABS: Basophils # (auto) 0.06 K/uL (0-0.2); Basophils % (auto) 0.4 %; Eosinophils # (auto) 0.11 K/uL (0-0.50); Eosinophils % (auto) 0.8 %; Hematocrit (blood only) 35.3 % (37.0-47.0); Hemoglobin 11.6 g/dl (12.0-16.0); Immature Granulocytes # (auto) 0.08 K/uL (0.01-0.20); Immature Granulocytes % (auto) 0.6 %; Lymphocytes # (auto) 2.82 K/uL (1.2-3.4); Lymphocytes % (auto) 20.4 %; Mean Corpuscular Hemoglobin 30.1 pg (25.0-34.0); Mean Corpuscular Hgb Conc 32.9 g/dL (32.0-36.0); Mean Corpuscular Volume 91.5 fL (80.0-100.0); Monocytes # (auto) 1.01 K/uL (0.11-0.59); Monocytes % (auto) 7.3 %; Neutrophils # (auto) 9.74 K/uL (1.40-6.50); Neutrophils % (auto) 70.5 %; Platelet Count 368 K/uL (130-400); RDW Coefficient of Variation 13.7 % (11.5-14.5); RDW Standard Deviation 46.2 fL (36.4-46.3); Red Blood Count 3.86 M/uL (4.20-5.40); White Blood Count 13.82 K/ul (4.8-10.8)
[2023-01-14 06:51] LABS: BUN Creatinine Ratio 26.7 (10-20); Calcium 9.5 mg/dl (8.6-10.3); Creatinine Clr Calc Pharmacy 97.7 ml/min; Est GFR (African American) 117.3 ml/min; Est GFR (Non-African American) 101.2 ml/min; Potassium 3.9 mmol/L (3.5-5.1)
[2023-01-14] MEDS: CETIRIZINE HCL 10 MG TABLET PO SCH (08:22)
[2023-01-14] MEDS: lisinopril 20 MG TAB PO SCH (08:22)
[2023-01-14] MEDS: EMPAGLIFLOZIN 25 MG TAB PO SCH (08:22)
[2023-01-14] MEDS: DOCUSATE SODIUM 100 MG CAP PO SCH ×2 (08:22→20:28)
[2023-01-14] MEDS: GABAPENTIN 600 MG TAB PO SCH ×2 (08:22→20:27)
[2023-01-14] MEDS: DORZOLAMIDE/TIMOLOL 22.3/6.8MG/ML 10 ML BTL OP SCH ×2 (08:23→20:28)
[2023-01-14] MEDS: INSULIN ASPART PER UNIT CHARGE SC SCH ×4 (08:25→20:24)
[2023-01-14] MEDS: CYCLOBENZAPRINE HCL 10 MG TAB PO PRN ×2 (09:32→20:25)
[2023-01-14] MEDS: oxyCODONE HCL IR 5 MG TAB (IMMEDIATE RELEASE) PO PRN ×2 (10:05→19:59)
--- NOTE | 2023-01-14 10:20 | Orthopedic Progress Note ---
Date of Service January 14, 2023 Assessment & Plan (1) Spinal stenosis of lumbar region with radiculopathy: Plan: At this time my concern is that she is developing neuropathic leg pain despite revision surgery. I will consult pain management for evaluation on Sunday for any additional medical management that may be reasonable. In the interim I did asked that she ambulate as tolerated and avoid prolonged sitting. Admission and Anticipated Discharge Date Admission Date: January 11, 2023 Subjective Patient's back pain is controlled unfortunately her left leg symptoms seem to be returning. That started last night. She is still up and ambulating. Right lower extremity is asymptomatic. Physical Exam Physical Exam: On exam she is lightheaded. She has reasonable strength testing lower extremities. She has some modest hyperesthesia to palpation left lower extremity. Results & Data Vital Signs (Past 12 Hours) Vital Signs Temp Pulse Resp BP Pulse Ox O2 Del Method 01/14/23 08:00 Room Air 01/14/23 07:05 36.7 C 78 18 104/67 97 Room Air
[2023-01-14] MEDS: dexAMETHasone 8 MG in SYRINGE 0 ML IV SCH ×2 (14:36→21:38)
--- NOTE | 2023-01-14 15:15 | Hospitalist Progress Note ---
Date of Service January 14, 2023 Assessment & Plan (1) Spinal stenosis of lumbar region with radiculopathy: Plan: Admitted for repeat lumbar back surgery. Had initial surgery over a month ago and then was readmitted for postoperative hematoma which was drained. Now returns for recurrent radicular symptoms down LLE On 01/12-s/p 1. Removal of posterior instrumentation L4-S1. #2 exploration of fusion L4-S1. #3 placement of posterior instrumentation L4-S1. #4 placement infuse collagen sponge by master graft in the posterior gutters L4-S1. #5 revision decompression L4-L5 L5-S1 EBL 100 mL, POD#1 hemoglobin 11.7 down from 14.6 preoperatively- consistent with acute blood loss anemia postoperatively. Hgb stable on POD#2 Now with recurrent severe radicular pain down LLE on POD#2, requiring frequent IV dilaudid, po oxycodone with minimal relief -increase gabapentin to add a midday dose of 300mg--> 600/300/600mg -Continue Tylenol as needed, IV Dilaudid as needed for severe pain, oxycodone p.o. and tramadol p.o. as needed for pain -continue home cyclobenzaprine 10 mg p.o. twice daily as needed -Ortho added Decadron 8mg IV tid on 01/14 -Ortho also consulted Pain Management for Sunday -Monitor for opioid-induced constipation-last bowel movement 01/10-add on sennakot, daily Miralax, and prn Fleets enema Pt very worried that she'll be sent home prior to adequate pain control regimen found-reassured her we would work together to find a good pain control regimen for her prior to discharge (2) Diabetes mellitus, type 2: Plan: Chronic and stable Last HgbA1C was 6.9 in November 2022 Hold Metformin -Continue Jardiance - ISS while in patient - Carb consistent diet (3) Anxiety: Plan: Acutely exacerbated by current medical condition She takes lorazepam scheduled 1 mg at nighttime -continue lorazepam 1 mg 3 times a day as needed (4) Hypertension: Plan: Blood pressures are controlled Continue Atenolol and lisinopril Renal function normal (5) Hyperlipidemia: Plan: Chronic and stable Continue Lipitor and fenofibrate (6) Glaucoma: Plan: Chronic and stable continue home eye gtts (7) Left ankle pain: Plan: Ongoing for several months, possibly due to antalgic gait from radiculopathy With tenderness of the anterior lateral ankle in the soft tissues, suspect tendinopathy X-ray of the ankle 01/12 negative for fracture Continue icing, range of motion exercises Recommend outpatient follow-up with orthopedics Plan Disposition-continued stay, hospitalist service will follow along Admission and Anticipated Discharge Date Admission Date: January 11, 2023 Subjective Started having worsening LLE severe pain today, similar to how it was prior to this surgery. SHe is tearful and frustrated that the surgery has not helped her so far. She is also worried that she'll be sent home without adequate pain control plan. No BM in 4 days. Is voiding completely. Had some mild nausea earlier that resolved, is long po. No CP, SOB, lightheadedness. Physical Exam Constitutional: WD/WN, vitals as above Neck: trachea midline, no thyromegaly Respiratory: normal respiratory effort, lungs clear to auscultation Cardiovascular: RRR, no murmur, no edema Chest (Breasts): Chest: normal inspection of chest Gastrointestinal (Abdomen): normal bowel sounds, soft, nontender, no hepatosplenomegaly Musculoskeletal: Extremities: + extremities abnormal to inspection (L ankle mild edema laterally,+TTP anterior lat), no cyanosis and no clubbing Ankle: no skin erythema and normal ROM of ankle Skin: no rashes, warm and dry Neurologic: moves all extremities and awake; no focal motor deficits Results & Data Results & Data Vital Signs (Past 12 Hours) Vital Signs Temp Pulse Resp BP Pulse Ox O2 Del Method 01/14/23 08:00 Room Air 01/14/23 07:05 36.7 C 78 18 104/67 97 Room Air Laboratory Results CBC, BMP reviewed PG Care Time/CCT Total # of Minutes Spent Total Time Spent with Patient: Total time spent is greater than 50% in coordination of care (as documented) at patient's floor/unit and/or counseling patient: Coding Level of Care Code 96787 SUB INP/OBS CARE 2/35MIN Diagnoses Spinal stenosis of lumbar region with radiculopathy M48.061; M54.16 Diabetes mellitus, type 2 E11.9 Anxiety F41.9 Hypertension I10 Hyperlipidemia E78.5 Glaucoma H40.9 Left ankle pain M25.572
[2023-01-14] MEDS ORDERED: SOD PHOSPHATE/SOD BIPHOSPHATE ENEMA 132 ML BTL PR PRN (15:16)
[2023-01-14] MEDS: GABAPENTIN 300 MG CAP PO SCH (15:39)
[2023-01-14] MEDS: LORazepam 1 MG TAB PO PRN (16:15)
[2023-01-14] MEDS: POLYETHYLENE (MIRALAX) 17 GM PACK PO SCH (16:26)
[2023-01-14] MEDS: SENNA 8.6 MG TAB PO SCH (16:26)
[2023-01-14] MEDS: ATENOLOL 25 MG TABLET PO SCH (20:27)
[2023-01-14] MEDS: FENOFIBRATE NANOCRYSTALLIZED 145 MG TABLET PO SCH (20:27)
[2023-01-14] MEDS: ATORVASTATIN 20 MG TAB PO SCH (20:27)
[2023-01-14] MEDS: TRAVOPROST Z 0.004% OPH SOLN 2.5 ML BTL OPB SCH (20:28)
[2023-01-14] MEDS: ACETAMINOPHEN 500 MG TAB PO PRN (20:30)
[2023-01-14] MEDS: LORazepam 1 MG TAB PO SCH (21:38)
[2023-01-15] MEDS: oxyCODONE HCL IR 5 MG TAB (IMMEDIATE RELEASE) PO PRN ×3 (03:14→19:34)
[2023-01-15] MEDS: dexAMETHasone 8 MG in SYRINGE 0 ML IV SCH ×3 (05:15→21:58)
[2023-01-15] MEDS: HYDROmorphone INJ 1 MG/ML SYRINGE IV PRN ×3 (05:15→21:57)
[2023-01-15] MEDS: lisinopril 20 MG TAB PO SCH (07:47)
[2023-01-15] MEDS: CETIRIZINE HCL 10 MG TABLET PO SCH (07:49)
[2023-01-15] MEDS: GABAPENTIN 600 MG TAB PO SCH (07:49)
[2023-01-15] MEDS: EMPAGLIFLOZIN 25 MG TAB PO SCH (07:49)
[2023-01-15] MEDS: DOCUSATE SODIUM 100 MG CAP PO SCH ×2 (07:49→20:23)
[2023-01-15] MEDS: SENNA 8.6 MG TAB PO SCH (07:50)
[2023-01-15] MEDS: CYCLOBENZAPRINE HCL 10 MG TAB PO PRN ×2 (07:50→20:22)
[2023-01-15] MEDS: ACETAMINOPHEN 500 MG TAB PO PRN ×2 (07:50→19:34)
[2023-01-15] MEDS: LORazepam 1 MG TAB PO PRN ×2 (07:50→16:07)
[2023-01-15] MEDS: DORZOLAMIDE/TIMOLOL 22.3/6.8MG/ML 10 ML BTL OP SCH ×2 (07:51→20:23)
[2023-01-15] MEDS: POLYETHYLENE (MIRALAX) 17 GM PACK PO SCH (07:51)
[2023-01-15] MEDS: INSULIN ASPART PER UNIT CHARGE SC SCH ×5 (08:38→21:26)
--- NOTE | 2023-01-15 10:07 | Orthopedic Progress Note ---
Date of Service January 15, 2023 Assessment & Plan (1) Postoperative back pain: Plan: At this time I will await input from pain management. Discontinue her drain today and allow her to shower. We will hopefully be able to control her symptom complex with oral medications in the next few days and allow her to return home. Admission and Anticipated Discharge Date Admission Date: January 11, 2023 Subjective Patient still struggling with abdominal the left leg pain typically below the knee on the lateral side of her lower leg. She is requiring IV narcotics to control her symptoms. She states she is up and ambulating several times of the day yesterday and tolerated this well. Physical Exam Physical Exam: On exam she is currently in bed. She has reasonable strength testing. CHRISTOPHER drain decreasing appropriately. Results & Data Vital Signs (Past 12 Hours) Vital Signs Pulse Resp BP Pulse Ox O2 Del Method 01/15/23 07:52 77 18 109/66 99 Room Air
--- NOTE | 2023-01-15 10:15 | Pain Management Consultation ---
Date of Consultation January 15, 2023 Assessment & Plan (1) Low back pain radiating to left lower extremity: (2) Paresthesia of left lower extremity: (3) S/P lumbar spine operation: Plan 1. Recommend taper off of gabapentin and switch to Lyrica. 2. I had IV Toradol for inflammation control, with possible continuation of oral once out of the hospital. 3. Recommend PT/OT. 4. Consider placement in rehab facility, as patient's main concern is returning home and her pain not being under control and then having to come back to the ER. * Discussed that rehab locations can sometimes offer more options for pain control. History of Present Illness Attending Physician: Samir Herndon DO Allergies Allergy/AdvReac Type Severity Reaction Status Date / Time No Known Allergies Allergy Verified 01/11/23 10:27 Home Medications Medication Instructions Recorded Confirmed Type atenolol 25 mg tablet 25 mg PO QPM 06/06/19 01/11/23 History atorvastatin 20 mg tablet (Lipitor) 20 mg PO HS 06/06/19 01/11/23 History cetirizine 10 mg tablet (Zyrtec) 10 mg PO QAM 06/06/19 01/11/23 History fenofibrate nanocrystallized 145 145 mg PO HS 06/06/19 01/11/23 History mg tablet lorazepam 1 mg tablet (Ativan) 1 mg PO HS PRN Anxiety 06/06/19 01/11/23 History metformin 500 mg tablet 500 mg PO HS 06/06/19 01/11/23 History travoprost 0.004 % eye drops 1 drp OPB HS 06/06/19 01/11/23 History (Travatan Z) dorzolamide 22.3 mg-timolol 6.8 1 drp ophthalmic (eye) [facility] 11/02/20 01/11/23 History mg/mL eye drops lisinopril 20 mg tablet 20 mg PO QAM 11/02/20 01/11/23 History tizanidine 4 mg tablet 4 mg PO BID PRN muscle spasticity 10/06/22 01/11/23 Rx #30 tabs acetaminophen 500 mg tablet 1,000 mg PO DIRECTED PRN 12/02/22 01/11/23 History (Tylenol Extra Strength) PAIN/FEVER docusate sodium 100 mg capsule 100 mg PO DAILY 12/02/22 01/11/23 History (Colace) empagliflozin 25 mg tablet 25 mg PO QAM 12/02/22 01/11/23 History (Jardiance) oxycodone 5 mg tablet 5 mg PO Q6H PRN pain #30 tabs 12/05/22 01/11/23 Rx tramadol 50 mg tablet 50 mg PO Q6H PRN pain, moderate 12/05/22 01/11/23 Rx #30 tabs lidocaine 5 % topical patch 1 patch topical DAILY #15 ea 12/07/22 01/11/23 Rx ondansetron HCl 4 mg tablet 4 mg PO QID PRN nausea and 12/07/22 01/11/23 Rx vomiting #20 tabs hydromorphone 2 mg tablet 4 mg PO Q6 PRN pain #30 tabs 12/14/22 01/11/23 Rx (Dilaudid) oxycodone 5 mg tablet 5 mg PO TID PRN pain #14 tabs 01/09/23 01/11/23 Rx methylprednisolone 4 mg tablets in 4 mg PO BID 01/11/23 01/11/23 History a dose pack cyclobenzaprine 10 mg tablet 10 mg PO BID PRN Muscle Spasm 01/13/23 01/13/23 History gabapentin 300 mg capsule 600 mg PO BID 01/13/23 01/13/23 History oxycodone 5 mg tablet 5 mg PO Q6H PRN pain #30 tabs 01/13/23 Rx tramadol 50 mg tablet 50 mg PO Q6H PRN pain, moderate 01/13/23 Rx #30 tabs Patient History Medical History (Updated 01/15/23 @ 10:12 by Timothy Tay PA-C) Anxiety Diabetes mellitus, type 2 Elevated platelet count FOLLOWS HEMATOLOGY (BEING MONITORED) Glaucoma Hx of colonic polyps Hyperlipidemia Hypertension Paresthesia of left lower extremity Surgical History (Updated 01/15/23 @ 10:12 by Timothy Tay PA-C) History of cardiac cath 7 YRS AGO @ [facility] > FOR CHEST PAIN > NO STENTS History of section X 1 History of cholecystectomy History of colonoscopy History of dilatation and curettage History of endoscopic sinus surgery History of tooth extraction S/P lumbar spine operation Family History Grandmother (Maternal) Diabetes Family history of diabetes mellitus Mother Family history of diabetes mellitus Other No family history of adverse response to anesthesia Social History Smoking Status: Current some day smoker Tobacco Type: Cigarettes Cigarettes Per Day: 10; Second Hand Exposure: Yes (IN THE PAST); Do You Dip or Chew Tobacco: No; Hx Alcohol Use: Yes Hx Substance Use: No Preferred Language: Romanian Communication Ability: Effective Breaster Required: No Beliefs That Will Affect Care: None Current Living Situation: Spouse and Family Current Living Situation Comment: Lives with and step son Feels Safe at Home: Yes Assistive Devices: Hospital Bed and Walker
[2023-01-15] MEDS: traMADol HCL 50 MG TABLET PO PRN ×2 (12:22→20:21)
[2023-01-15] MEDS: GABAPENTIN 300 MG CAP PO SCH (13:11)
--- NOTE | 2023-01-15 15:43 | Hospitalist Progress Note ---
Date of Service January 15, 2023 Assessment & Plan (1) Spinal stenosis of lumbar region with radiculopathy: Plan: Admitted for repeat lumbar back surgery. Had initial surgery over a month ago and then was readmitted for postoperative hematoma which was drained. Now returned for recurrent radicular symptoms down LLE On 01/12- #1- s/p removal of posterior instrumentation L4-S1. #2- exploration of fusion L4-S1. #3- placement of posterior instrumentation L4-S1. #4 - placement infuse collagen sponge by master graft in the posterior gutters L4- S1. #5- revision decompression L4-L5 L5-S1 EBL 100 mL POD#3. (2) Diabetes mellitus, type 2: Plan: ADA diet. Holding metformin. Sliding scale insulin coverage as needed. (3) Anxiety: Plan: Acutely exacerbated by current medical condition. She takes lorazepam (4) Hypertension: Plan: Stable. Continue Atenolol and lisinopril (5) Hyperlipidemia: Plan: Stable. Continue Lipitor and fenofibrate (6) Glaucoma: Plan: Stable. Continue home eye gtts (7) Left ankle pain: Plan: Ongoing for several months, possibly due to antalgic gait from radiculopathy. Tenderness of the anterior lateral ankle in the soft tissues, suspect tendinopathy. X-ray of the ankle 01/12 negative for fracture. Continue icing, range of motion exercises. Recommend outpatient follow-up with orthopedics Plan Disposition- to be determined. OT and PT assessments requested. She may need short-term IPR placement at discharge Admission and Anticipated Discharge Date Admission Date: January 11, 2023 Subjective Alert and oriented. No new problems. Pain management recommendations noted. Gabapentin switched to Lyrica and OT and PT assessments requested. She may need IPR placement temporarily at discharge. Review of Systems Review of Systems: Constitutional-no fever or chills ENT-no blurred vision, no double vision, no epistaxis, no sore throat Respiratory-no cough, no wheezing, no shortness of breath Cardiac-no palpitations, no chest pain, no syncope GI-no nausea, vomiting, diarrhea, melena, hematochezia -no urinary retention, no urinary incontinence, no dysuria, no hematuria Musculoskeletal-no joint pain, no muscle tenderness Skin-no bruising, no rashes, no pruritus Neuro-no isolated weakness. Left lower extremity paresthesia laterally Psych-no depression, no anxiety Physical Exam Physical Exam: General-alert and oriented x3, no fevers, no chills HEENT-head atraumatic and normocephalic, pupils equal and reactive to light, extraocular muscles intact Neck-no lymphadenopathy or thyromegaly, trachea midline Chest-clear to auscultation percussion. No rales wheezing or rhonchi Cardiac-regular rate and rhythm, normal S1 and S2 Abdomen-normal bowel sounds, nontender, no hepatosplenomegaly Extremities-no cyanosis, clubbing, or edema Neuro-cranial nerves II through XII intact, motor and sensory function within normal limits, strength symmetrical , no focal deficits Psych-normal affect, normal mood Results & Data Results & Data Vital Signs (Past 12 Hours) Vital Signs Temp Pulse Resp BP Pulse Ox O2 Del Method 01/15/23 14:45 36.3 C L 75 16 106/67 97 Room Air 01/15/23 07:52 77 18 109/66 99 Room Air Laboratory Results 01/14/23 05:26 01/14/23 05:26 PG Care Time/CCT Total # of Minutes Spent Total Time Spent with Patient: Total time spent is greater than 50% in coordination of care (as documented) at patient's floor/unit and/or counseling patient: Coding Level of Care Code 35533 SUB INP/OBS CARE 3/50MIN Diagnoses Spinal stenosis of lumbar region with radiculopathy M48.061; M54.16 Diabetes mellitus, type 2 E11.9 Anxiety F41.9 Hypertension I10 Hyperlipidemia E78.5 Glaucoma H40.9 Left ankle pain M25.572
--- NOTE | 2023-01-15 17:58 | Pain Management Consultation ---
Agree with Timothy Tay's recommendation to increase PO oxycodone to 10 mg to wean off IV opiates in the immediate post operative period....5-7 days post op. For longer term management (after 90 days post op) of her symptoms, she may be a candidate for a spinal cord stimulator trial pending passing psychiatric evaluation and insurance approval. Date of Consultation January 15, 2023 Assessment & Plan (1) S/P lumbar spine operation: (2) Paresthesia of left lower extremity: (3) Low back pain radiating to left lower extremity: (4) Postoperative back pain: Plan 1. Recommend taper off of gabapentin and switch to Lyrica. * Start 75 mg BID, then increase to 150 mg PO BID within 1 week; (may increase further to 300 mg PO BID after another 2-3-week pending symptoms and m edication tolerance) 2. Recommend adding IV Toradol for inflammation control, with possible contin uation of oral once out of the hospital. 3. As this is the patient's third surgery in a relative short period of time, and the patient has been on home medication of oxycodone 5 mg with less than de sirable pain relief, it would be appropriate to increase to oxycodone 10 mg for home use to allow the patient to have a stronger oral medication since she will be needing to wean off of the IV narcotics to be able to be discharged. * Continue tramadol to alternate with the oxycodone. 4. Recommend PT/OT for mobilization. 5. Consider placement in rehab facility, as patient's main concern is returning home and her pain not being under control and then having to come back to the ER. * Discussed that rehab locations can sometimes offer more options for pain control. Thank you for this consultation; the pain management team will sign off at this time. Please reconsult if further services are needed. History of Present Illness Reason for Consultation: Left lower extremity neuropathic pain Attending Physician: Samir Herndon DO History of Present Illness Patient is a 57-year-old female that is status post lumbar spine surgeries x3 by Dr. Herndon. He she initially had a lumbar decompression bilaterally with facetectomies and foraminotomies at L4-5 and L5-S1. There was a posterior spi nal fusion at L4-5 and L5-S1, as well as placement of posterior instrumentation L4-S1. She also had placement of morselized autograft and interbody fusion at L5-S1. Previous procedures were performed on 12/04/2022. The patient did develop a postoperative hematoma/seroma that was causing left lower extremity weakness, neuropathy, and ambulatory dysfunction, and so subsequently underwent an I&D procedure on 12/11/2022. In early December the had a marked decline in status that has not improved since that time. She was having pain across the left back,left buttock, and posterior thigh into the foot. It limited her ability to si,t stand, and ambulate for any distance. It was awakening her from sleep. She was not responsive to medications. Patient returned the ER on 01/11/[address] Herndon had ordered a CAT scan lumbar spine, which showed concern that there is a combination of loosening of the S1 pedicle screws bilaterally, as well as evidence of bone graft that may have migrated into the lateral recess and foramina of L5-S1 on the left. This undoubtedly would have contributed to her symptom complex. Recommendation was given for a revision fusion L4-L5, L5-S1 a nd address any development of neural compression and loosening of hardware. Patient admitted and she underwent the surgery on 01/12/2023, wherein there was removal of the posterior instrumentation L4-S1, exploration of the fusion L4-S1, placement of posterior instrumentation L4S1, placement of collagen sponge in the posterior gutters L4-S1, and revision decompression L4-5, L5-S1. In the most recent postoperative setting, the patient continued to struggle with left leg pain/paresthesia symptoms, typically below the knee on the left side at the lateral lower leg. It was felt that the patient was developing neuropathic leg pain despite the revision surgery. She was having to utilize IV narcotics and oral narcotics to control her symptoms. Patient was ambulating on her own several times and tolerated that well, but she persisted with pain nonetheless. The pain management service was consulted for additional medication/therapeutic recommendations. Case discussed with Dr. Boggs. Pain Assessment Full Body Front + Back: 1. 2. 3. Allergies Allergy/AdvReac Type Severity Reaction Status Date / Time No Known Allergies Allergy Verified 01/11/23 10:27 Home Medications Medication Instructions Recorded Confirmed Type atenolol 25 mg tablet 25 mg PO QPM 06/06/19 01/11/23 History atorvastatin 20 mg tablet (Lipitor) 20 mg PO HS 11/15/19 06/22/23 History cetirizine 10 mg tablet (Zyrtec) 10 mg PO QAM 06/06/19 01/11/23 History fenofibrate nanocrystallized 145 145 mg PO HS 06/06/19 01/11/23 History mg tablet lorazepam 1 mg tablet (Ativan) 1 mg PO HS PRN Anxiety 06/06/19 01/11/23 History metformin 500 mg tablet 500 mg PO HS 06/06/19 01/11/23 History travoprost 0.004 % eye drops 1 drp OPB HS 06/06/19 01/11/23 History (Travatan Z) dorzolamide 22.3 mg-timolol 6.8 1 drp ophthalmic (eye) [facility] 11/02/20 01/11/23 History mg/mL eye drops lisinopril 20 mg tablet 20 mg PO QAM 11/02/20 01/11/23 History tizanidine 4 mg tablet 4 mg PO BID PRN muscle spasticity 10/06/22 01/11/23 Rx #30 tabs acetaminophen 500 mg tablet 1,000 mg PO DIRECTED PRN 12/02/22 01/11/23 History (Tylenol Extra Strength) PAIN/FEVER docusate sodium 100 mg capsule 100 mg PO DAILY 12/02/22 01/11/23 History (Colace) empagliflozin 25 mg tablet 25 mg PO QAM 12/02/22 01/11/23 History (Jardiance) oxycodone 5 mg tablet 5 mg PO Q6H PRN pain #30 tabs 12/05/22 01/11/23 Rx tramadol 50 mg tablet 50 mg PO Q6H PRN pain, moderate 12/05/22 01/11/23 Rx #30 tabs lidocaine 5 % topical patch 1 patch topical DAILY #15 ea 12/07/22 01/11/23 Rx ondansetron HCl 4 mg tablet 4 mg PO QID PRN nausea and 12/07/22 01/11/23 Rx vomiting #20 tabs hydromorphone 2 mg tablet 4 mg PO Q6 PRN pain #30 tabs 12/14/22 01/11/23 Rx (Dilaudid) oxycodone 5 mg tablet 5 mg PO TID PRN pain #14 tabs 01/09/23 01/11/23 Rx methylprednisolone 4 mg tablets in 4 mg PO BID 01/11/23 01/11/23 History a dose pack cyclobenzaprine 10 mg tablet 10 mg PO BID PRN Muscle Spasm 01/13/23 01/13/23 History gabapentin 300 mg capsule 600 mg PO BID 01/13/23 01/13/23 History oxycodone 5 mg tablet 5 mg PO Q6H PRN pain #30 tabs 01/13/23 Rx tramadol 50 mg tablet 50 mg PO Q6H PRN pain, moderate 01/13/23 Rx #30 tabs Patient History Medical History Anxiety Diabetes mellitus, type 2 Elevated platelet count FOLLOWS HEMATOLOGY (BEING MONITORED) Glaucoma Hx of colonic polyps Hyperlipidemia Hypertension Paresthesia of left lower extremity Surgical History History of cardiac cath 7 YRS AGO @ [facility] > FOR CHEST PAIN > NO STENTS History of section X 1 History of cholecystectomy History of colonoscopy History of dilatation and curettage History of endoscopic sinus surgery History of tooth extraction S/P lumbar spine operation Family History Grandmother (Maternal) Diabetes Family history of diabetes mellitus Mother Family history of diabetes mellitus Other No family history of adverse response to anesthesia Social History Smoking Status: Current some day smoker Tobacco Type: Cigarettes Cigarettes Per Day: 10; Second Hand Exposure: Yes (IN THE PAST); Do You Dip or Chew Tobacco: No; Hx Alcohol Use: Yes Hx Substance Use: No Preferred Language: French Communication Ability: Effective Dba Required: No Beliefs That Will Affect Care: None Current Living Situation: Spouse and Family Current Living Situation Comment: Lives with and step son Feels Safe at Home: Yes Assistive Devices: Hospital Bed and Walker Physical Exam Physical Exam: GENERAL: Speech and cognition is intact. Mood and affect is depressed and crying. Does not appear in acute distress. HEAD: Normocephalic; atraumatic. NECK: Full ROM; trachea is midline. CHEST: Regular chest respiration and excursion. EXTREMITIES: Diminished left lower extremity ROM secondary to pain and ap prehension. Positive TTP over distal, lateral lower left leg. Distal sensation and pulses intact bilaterally. BACK: Unable to test.There is no midline, SI joint, or facet joint tenderness. NEURO: Patellar Reflex R traceL trace Achilles Reflex R traceL trace Negative clonus bilaterally SKIN: No lesions, erythema, or rashes noted. LOWER EXTREMITIES: R Hip flexion 5/5; hip extension 5/5; knee extension 5/5; knee flexion 5/5; ankle dorsiflexion 5/5; ankle plantar flexion 5/5; EHL 5/5 L Hip flexion 5/5; hip extension 5/5; knee extension 5/5; knee flexion 5/5; ankle dorsiflexion 4/5; ankle plantar flexion 5/5; EHL 4/5 Results (Pain Clinic) Diagnostic Review MRI Findings: MRI OF THE LUMBAR SPINE WITHOUT CONTRAST CLINICAL HISTORY: Back pain, recent lumbar surgery. Left leg pain and swelling. Left foot numbness. COMPARISON STUDY: Lumbar spine MRI December 10, 2022. TECHNIQUE: Utilizing a 1.5 Keren magnet and dedicated coil, multiplanar, multiecho imaging of the lumbar spine was performed without IV contrast. FINDINGS: For purposes of numbering on this exam, the L5-S1 disc space is assigned to ax ial image 26 of 30. There are postoperative findings consistent with L5-S1 discectomy with interbody spacer placement. There is a posterior decompression. There are bilateral pedicle screws at the L4 and S1 levels and a right-sided pedicle screw at the L5 level. Paraspinal increased T2 signal within the operative bed is likely postsurgical. There is a small laminectomy bed fluid collection at the L5 level that measures 2.2 x 0.8 cm. This has no mass effect upon the thecal sac. There is no evidence for epidural hematoma or abscess. The conus terminates at the lower L1 level. There is no lumbar spine fracture. There is no evidence for discitis or acute osteomyelitis. L1-2: The central canal and neural foramen are patent. L2-3: There is minimal disc bulge. The central canal and neural foramen are patent. L3-4: The central canal is patent. There is a left foraminal disc protrusion. This does not contact the exiting left L3 nerve root. There is mild narrowing of bilateral neural foramen. L4-5: A small central disc protrusion is present. There is mild central canal stenosis. A left foraminal disc protrusion is present. This contacts the exiting left L4 nerve root. This is unchanged since previous MRI of December 10, 2022. L5-S1: Postoperative findings are noted consistent with discectomy and posterior decompression. Slight anterolisthesis of L5 on S1 is unchanged. This level is suboptimally assessed due to artifact from the hardware. There is no significant central canal stenosis. The disc spacer is within the left aspect of the disc space. By MRI, it is difficult to determine whether this slightly extends into the left neural foramen. However, there is apparent moderate to severe left neural foraminal narrowing. There is also moderate to severe right neural foraminal narrowing. IMPRESSION: 1. Status post L5-S1 discectomy, posterior decompression and pedicle screw fusion from L4 through S1. Paraspinal increased T2 signal within the operative bed is likely postsurgical. Small laminectomy bed fluid collection which measures 2.2 x 0.8 cm is nonspecific although probably reflects a small seroma. 2. Moderate to severe bilateral neural foraminal stenosis at L5-S1. The neural foramen are obscured by susceptibility artifact from the surgical hardware. L5- S1 disc spacer within the left aspect of the disc space. By MRI, it is difficult to determine whether this slightly extends into the left neural foramen. Findings could be correlated with left L5 radiculopathy. 3. Mild central canal stenosis at L4-L5. No severe central canal stenosis. Small left foraminal disc protrusion at L4-L5 contacts the exiting left L4 nerve root. This is unchanged since previous MRI. 4. No lumbar spine fractures. ACT 112: Negative or not required by law. Electronically signed by: Marky Arias M.D. 01/09/2023 10:47 AM Dictated:01/09/23 1030 Transcribed: 01/09/[address] Findings: CT lumbar spine wo con HISTORY: 57 years-old Female back pain acute low back pain with prior surgery COMPARISON: MRI lumbar spine 01/09/2023 TECHNIQUE: Multiple axial CT images of the lumbar spine were obtained without the use of IV contrast. A dose lowering technique was used consistent with the principals of ALARA. FINDINGS: Atherosclerosis of the aorta. The imaged intra-abdominal structures are unremarkable. No significant paravertebral edema or epidural collections identified. No acute fracture, subluxation or endplate erosion identified. L5-S1 laminectomy and discectomy with posterior and right carotid screw fusion hardware at L4-S1. Prior removal of the left L5 pedicle screw. Unchanged 4 mm anterolisthesis L5 on S1. The L5-S1 disc spacer is again noted within the left lateral aspect of the intervertebral disc space. The left L4 screw extends medial to the pedicle extending into the left lateral recess. The hardware appears to be intact. Streak artifact from the hardware limits the study. Mild multilevel and vertebral disc space narrowing with spondylitic spurring, annular disc bulging and probably moderate facet arthrosis. The small probable seroma within the operative bed described on MRI is not well visualized by CT. The previously described areas of central canal and foraminal narrowing are also better evaluated on MRI. Suboptimal visualization of the neural foramen at L5-S1 secondary to the aforementioned streak artifact. There is apparent at least moderate to severe bilateral foraminal narrowing at this level. IMPRESSION: 1. No acute fracture or subluxation. 2. L5 laminectomy with L4-S1 posterior interbody chuck and screw fusion and L5-S1 discectomy redemonstrated. Artifact from the hardware limits the study, notably evaluation of the L5-S1 neural foramina. 3. The left L4 pedicle screw extends medial to the pedicle into the left lateral recess and the L5-S1 disc spacer is noted within the left lateral aspect of the disc space extending into the adjacent lateral recess. 4. Central canal and neural foraminal stenosis is better evaluated on the comparison MRI study. ACT 112: Negative or not required by law. The above report was generated using voice recognition software. It may contain grammatical, syntax or spelling errors. Electronically signed by: Jayson Floyd M.D. 01/11/2023 8:47 AM Dictated:01/11/23837 Transcribed: 01/11/23837
[2023-01-15] MEDS: PREGABALIN 75 MG CAP PO SCH (20:21)
[2023-01-15] MEDS: FENOFIBRATE NANOCRYSTALLIZED 145 MG TABLET PO SCH (20:22)
[2023-01-15] MEDS: ATORVASTATIN 20 MG TAB PO SCH (20:22)
[2023-01-15] MEDS: ATENOLOL 25 MG TABLET PO SCH (20:23)
[2023-01-15] MEDS: TRAVOPROST Z 0.004% OPH SOLN 2.5 ML BTL OPB SCH (20:24)
[2023-01-15] MEDS: LORazepam 1 MG TAB PO SCH (21:58)
[2023-01-16] MEDS: dexAMETHasone 8 MG in SYRINGE 0 ML IV SCH ×3 (06:02→21:11)
[2023-01-16] MEDS: ACETAMINOPHEN 500 MG TAB PO PRN ×2 (06:12→17:14)
[2023-01-16] MEDS: oxyCODONE HCL IR 5 MG TAB (IMMEDIATE RELEASE) PO PRN ×4 (06:12→21:01)
[2023-01-16 07:33] LABS: Basophils # (auto) 0.01 K/uL (0-0.2); Basophils % (auto) 0.1 %; Eosinophils # (auto) 0.01 K/uL (0-0.50); Eosinophils % (auto) 0.1 %; Hematocrit (blood only) 34.5 % (37.0-47.0); Hemoglobin 11.5 g/dl (12.0-16.0); Immature Granulocytes # (auto) 0.09 K/uL (0.01-0.20); Immature Granulocytes % (auto) 0.6 %; Lymphocytes % (auto) 10.8 %; Mean Corpuscular Hemoglobin 29.8 pg (25.0-34.0); Mean Corpuscular Hgb Conc 33.3 g/dL (32.0-36.0); Mean Corpuscular Volume 89.4 fL (80.0-100.0); Mean Platelet Volume 9.7 fL (9.4-12.4); Monocytes # (auto) 0.45 K/uL (0.11-0.59); Monocytes % (auto) 3.2 %; Neutrophils % (auto) 85.2 %; Platelet Count 461 K/uL (130-400); RDW Coefficient of Variation 13.4 % (11.5-14.5); Red Blood Count 3.86 M/uL (4.20-5.40); White Blood Count 13.86 K/ul (4.8-10.8)
[2023-01-16 07:49] LABS: BUN Creatinine Ratio 35.6 (10-20); Calcium 9.7 mg/dl (8.6-10.3); Creatinine Clr Calc Pharmacy 99.4 ml/min; Est GFR (African American) 117.9 ml/min; Est GFR (Non-African American) 101.7 ml/min; Potassium 4.2 mmol/L (3.5-5.1)
[2023-01-16] MEDS: DORZOLAMIDE/TIMOLOL 22.3/6.8MG/ML 10 ML BTL OP SCH ×2 (08:07→21:04)
[2023-01-16] MEDS: lisinopril 20 MG TAB PO SCH (08:08)
[2023-01-16] MEDS: PREGABALIN 75 MG CAP PO SCH ×2 (08:08→21:01)
[2023-01-16] MEDS: CYCLOBENZAPRINE HCL 10 MG TAB PO PRN ×2 (08:08→19:44)
[2023-01-16] MEDS: traMADol HCL 50 MG TABLET PO PRN ×3 (08:08→19:44)
[2023-01-16] MEDS: CETIRIZINE HCL 10 MG TABLET PO SCH (08:09)
[2023-01-16] MEDS: DOCUSATE SODIUM 100 MG CAP PO SCH ×2 (08:09→21:06)
[2023-01-16] MEDS: POLYETHYLENE (MIRALAX) 17 GM PACK PO SCH (08:09)
[2023-01-16] MEDS: SENNA 8.6 MG TAB PO SCH (08:09)
[2023-01-16] MEDS: EMPAGLIFLOZIN 25 MG TAB PO SCH (08:09)
[2023-01-16] MEDS: INSULIN ASPART PER UNIT CHARGE SC SCH ×4 (08:24→21:08)
[2023-01-16] MEDS: LORazepam 1 MG TAB PO PRN ×2 (09:12→17:14)
--- NOTE | 2023-01-16 13:00 | Hospitalist Progress Note ---
Date of Service January 16, 2023 Assessment & Plan (1) Spinal stenosis of lumbar region with radiculopathy: Plan: Admitted for repeat lumbar back surgery. Had initial surgery over a month ago and then was readmitted for postoperative hematoma which was drained. Now returned for recurrent radicular symptoms down E On 01/12-she underwent removal of posterior instrumentation L4-S1, exploration of fusion L4-S1, placement of posterior instrumentation L4-S1, placement infuse collagen sponge by master graft in the posterior gutters L4-S1, revision decompression L4-L5 L5-S1 EBL 100 mL POD#4. (2) Diabetes mellitus, type 2: Plan: ADA diet. Holding metformin. This will be restarted at discharge sliding scale insulin coverage as needed. (3) Anxiety: Plan: Acutely exacerbated by current medical condition. She takes lorazepam (4) Hypertension: Plan: Stable. Continue Atenolol and lisinopril (5) Hyperlipidemia: Plan: Stable. Continue Lipitor and fenofibrate (6) Glaucoma: Plan: Stable. Continue home eye gtts (7) Left ankle pain: Plan: Ongoing for several months, possibly due to antalgic gait from radiculopathy. Tenderness of the anterior lateral ankle in the soft tissues, suspect tendinopathy. X-ray of the ankle 01/12 negative for fracture. Continue icing, range of motion exercises. Recommend outpatient follow-up with orthopedics Plan Disposition- anticipate eventual discharge to [facility] per primary service. Admission and Anticipated Discharge Date Admission Date: January 11, 2023 Subjective Alert and oriented. Ambulating with a walker at the time of my rounds. Postoperative day #4. Awaiting rehab placement Review of Systems Review of Systems: Constitutional-no fever or chills ENT-no blurred vision, no double vision, no epistaxis, no sore throat Respiratory-no cough, no wheezing, no shortness of breath Cardiac-no palpitations, no chest pain, no syncope GI-no nausea, vomiting, diarrhea, melena, hematochezia -no urinary retention, no urinary incontinence, no dysuria, no hematuria Musculoskeletal-no joint pain, no muscle tenderness Skin-no bruising, no rashes, no pruritus Neuro-no isolated weakness. Left lower extremity paresthesia laterally Psych-no depression, no anxiety Physical Exam Physical Exam: General-alert and oriented x3, no fevers, no chills HEENT-head atraumatic and normocephalic, pupils equal and reactive to light, extraocular muscles intact Neck-no lymphadenopathy or thyromegaly, trachea midline Chest-clear to auscultation percussion. No rales wheezing or rhonchi Cardiac-regular rate and rhythm, normal S1 and S2 Abdomen-normal bowel sounds, nontender, no hepatosplenomegaly Extremities-no cyanosis, clubbing, or edema Neuro-cranial nerves II through XII intact, motor and sensory function within normal limits, strength symmetrical , no focal deficits Psych-normal affect, normal mood Results & Data Results & Data Vital Signs (Past 12 Hours) Vital Signs Temp Pulse Resp BP Pulse Ox O2 Del Method 01/16/23 07:26 36.5 C 58 L 16 103/68 95 Room Air Laboratory Results 01/16/23 07:07 01/16/23 07:07 PG Care Time/CCT Total # of Minutes Spent Total Time Spent with Patient: Total time spent is greater than 50% in coordination of care (as documented) at patient's floor/unit and/or counseling patient: Coding Level of Care Code 01143 SUB INP/OBS CARE 2/35MIN Diagnoses Spinal stenosis of lumbar region with radiculopathy M48.061; M54.16 Diabetes mellitus, type 2 E11.9 Anxiety F41.9 Hypertension I10 Hyperlipidemia E78.5 Glaucoma H40.9 Left ankle pain M25.572
--- NOTE | 2023-01-16 14:27 | Orthopedic Progress Note ---
Date of Service January 16, 2023 Assessment & Plan (1) Paresthesia of left lower extremity: Plan: At this time we will continue to titrate her medication to the point that it is tolerable for return home. If she responds appropriately we may discharge home tomorrow or . Admission and Anticipated Discharge Date Admission Date: January 11, 2023 Subjective Patient feels that her leg symptoms somewhat improved with Lyrica. She did require 1 dose of IV Dilaudid last night. She is tolerating physical therapy. Physical Exam Physical Exam: On exam she is currently in bed. She has good strength testing. Does appear comfortable at this time. Results & Data Vital Signs (Past 12 Hours) Vital Signs Temp Pulse Resp BP Pulse Ox O2 Del Method 01/16/23 07:26 36.5 C 58 L 16 103/68 95 Room Air
[2023-01-16] MEDS: LORazepam 1 MG TAB PO SCH (21:02)
[2023-01-16] MEDS: ATENOLOL 25 MG TABLET PO SCH (21:05)
[2023-01-16] MEDS: TRAVOPROST Z 0.004% OPH SOLN 2.5 ML BTL OPB SCH (21:05)
[2023-01-16] MEDS: ATORVASTATIN 20 MG TAB PO SCH (21:06)
[2023-01-16] MEDS: FENOFIBRATE NANOCRYSTALLIZED 145 MG TABLET PO SCH (21:06)
[2023-01-17] MEDS: dexAMETHasone 8 MG in SYRINGE 0 ML IV SCH ×3 (05:28→21:02)
[2023-01-17] MEDS: oxyCODONE HCL IR 5 MG TAB (IMMEDIATE RELEASE) PO PRN ×3 (05:33→20:59)
[2023-01-17] MEDS: ACETAMINOPHEN 500 MG TAB PO PRN ×2 (05:34→15:16)
[2023-01-17] MEDS: traMADol HCL 50 MG TABLET PO PRN ×3 (08:04→19:40)
[2023-01-17] MEDS: PREGABALIN 75 MG CAP PO SCH ×2 (08:04→20:59)
[2023-01-17] MEDS: CYCLOBENZAPRINE HCL 10 MG TAB PO PRN ×2 (08:04→19:40)
[2023-01-17] MEDS: DOCUSATE SODIUM 100 MG CAP PO SCH ×2 (08:05→20:59)
[2023-01-17] MEDS: CETIRIZINE HCL 10 MG TABLET PO SCH (08:05)
[2023-01-17] MEDS: EMPAGLIFLOZIN 25 MG TAB PO SCH (08:06)
[2023-01-17] MEDS: lisinopril 20 MG TAB PO SCH (08:06)
[2023-01-17] MEDS: DORZOLAMIDE/TIMOLOL 22.3/6.8MG/ML 10 ML BTL OP SCH ×2 (08:06→20:59)
[2023-01-17] MEDS: POLYETHYLENE (MIRALAX) 17 GM PACK PO SCH (08:07)
[2023-01-17] MEDS: SENNA 8.6 MG TAB PO SCH (08:07)
[2023-01-17] MEDS: INSULIN ASPART PER UNIT CHARGE SC SCH ×4 (08:09→20:53)
--- NOTE | 2023-01-17 08:31 | Orthopedic Progress Note ---
Date of Service January 17, 2023 Assessment & Plan (1) Paresthesia of left lower extremity: Plan: Veronica is postoperative day 5 status post revision decompression fusion L4-S1. We will work on aggressive bowel regimen today. DVT prophylaxis is in the form of teds and SCDs. Continue physical therapy. We will have to discuss with pain management team on guidelines for titrating Lyrica. Will hopefully be able to discharge home over the next couple of days. Admission and Anticipated Discharge Date Admission Date: January 11, 2023 Reece Martin is postoperative day 5 status post revision decompression and fusion L4-S1. Still has left leg pain mostly when lying down. Does not seem to have it when ambulating. Yesterday in physical therapy ambling 170 feet. She is requesting if Lyrica can be increased. She is passing flatus but no bowel movement. Review of Systems Review of Systems: All systems reviewed & are unremarkable except as noted in HPI & below Physical Exam Physical Exam: She is lying in bed in no acute distress Lumbar dressing is clean dry and intact Calf soft nontender bilateral Strength unchanged bilateral lower extremity Results & Data Vital Signs (Past 12 Hours) Vital Signs Temp Pulse Resp BP Pulse Ox O2 Del Method 01/17/23 07:55 36.4 C L 66 14 131/76 93 Room Air 01/16/23 20:31 36.4 C L 74 18 121/73 98 Room Air
[2023-01-17] MEDS: HYDROmorphone INJ 1 MG/ML SYRINGE IV PRN ×2 (09:12→23:31)
[2023-01-17 09:14] LABS: Basophils # (auto) 0.01 K/uL (0-0.2); Basophils % (auto) 0.1 %; Hematocrit (blood only) 36.9 % (37.0-47.0); Hemoglobin 12.2 g/dl (12.0-16.0); Immature Granulocytes # (auto) 0.12 K/uL (0.01-0.20); Lymphocytes # (auto) 1.31 K/uL (1.2-3.4); Mean Corpuscular Hemoglobin 30.2 pg (25.0-34.0); Mean Corpuscular Hgb Conc 33.1 g/dL (32.0-36.0); Mean Corpuscular Volume 91.3 fL (80.0-100.0); Mean Platelet Volume 9.9 fL (9.4-12.4); Monocytes # (auto) 0.37 K/uL (0.11-0.59); Monocytes % (auto) 3.1 %; Neutrophils # (auto) 10.12 K/uL (1.40-6.50); Neutrophils % (auto) 84.8 %; Platelet Count 476 K/uL (130-400); RDW Coefficient of Variation 13.6 % (11.5-14.5); RDW Standard Deviation 45.8 fL (36.4-46.3); Red Blood Count 4.04 M/uL (4.20-5.40); White Blood Count 11.93 K/ul (4.8-10.8)
[2023-01-17 09:25] LABS: BUN Creatinine Ratio 29.7 (10-20); Calcium 9.7 mg/dl (8.6-10.3); Creatinine Clr Calc Pharmacy 79.2 ml/min; Est GFR (African American) 104.2 ml/min; Est GFR (Non-African American) 89.9 ml/min; Potassium 4.6 mmol/L (3.5-5.1)
--- NOTE | 2023-01-17 12:48 | Hospitalist Progress Note ---
Date of Service January 17, 2023 Assessment & Plan (1) Spinal stenosis of lumbar region with radiculopathy: Plan: Admitted for repeat lumbar back surgery. Had initial surgery over a month ago and then was readmitted for postoperative hematoma which was drained. Now retu rned for recurrent radicular symptoms down LLE. On 01/12-she underwent removal of posterior instrumentation L4-S1, exploration of fusion L4-S1, placement of posterior instrumentation L4-S1, placement infuse collagen sponge by master graft in the posterior gutters L4-S1, revision decompression L4-L5 L5-S1 EBL 100 mL. POD#5. (2) Diabetes mellitus, type 2: Plan: ADA diet. Holding metformin. This will be restarted at discharge. Sliding scale insulin coverage as needed. (3) Anxiety: Plan: Acutely exacerbated by current medical condition. She takes lorazepam (4) Hypertension: Plan: Stable. Continue Atenolol and lisinopril (5) Hyperlipidemia: Plan: Stable. Continue Lipitor and fenofibrate (6) Glaucoma: Plan: Stable. Continue home eye gtts (7) Left ankle pain: Plan: Ongoing for several months, possibly due to antalgic gait from radiculopathy. Tenderness of the anterior lateral ankle in the soft tissues, suspect tendinopathy. X-ray of the ankle 01/12 negative for fracture. Continue icing, range of motion exercises. Recommend outpatient follow-up with orthopedics Plan Disposition- anticipate eventual discharge to [facility] or SNF per primary service. Admission and Anticipated Discharge Date Admission Date: January 11, 2023 Subjective Alert and oriented. No acute distress. Postoperative day #5. Vital signs stable. She is on room air. Review of Systems Review of Systems: Constitutional-no fever or chills ENT-no blurred vision, no double vision, no epistaxis, no sore throat Respiratory-no cough, no wheezing, no shortness of breath Cardiac-no palpitations, no chest pain, no syncope GI-no nausea, vomiting, diarrhea, melena, hematochezia -no urinary retention, no urinary incontinence, no dysuria, no hematuria Musculoskeletal-postoperative lumbar discomfort as expected Skin-no bruising, no rashes, no pruritus Neuro-no isolated weakness. Psych-no depression, no anxiety Physical Exam Physical Exam: General-alert and oriented x3, no fevers, no chills HEENT-head atraumatic and normocephalic, pupils equal and reactive to light, extraocular muscles intact Neck-no lymphadenopathy or thyromegaly, trachea midline Chest-clear to auscultation percussion. No rales wheezing or rhonchi Cardiac-regular rate and rhythm, normal S1 and S2 Abdomen-normal bowel sounds, nontender, no hepatosplenomegaly Extremities-no cyanosis, clubbing, or edema Neuro-cranial nerves II through XII intact, motor and sensory function within normal limits, strength symmetrical , no focal deficits Psych-normal affect, normal mood Results & Data Results & Data Vital Signs (Past 12 Hours) Vital Signs Temp Pulse Resp BP Pulse Ox O2 Del Method 01/17/23 07:55 36.4 C L 66 14 131/76 93 Room Air Laboratory Results 01/17/23 08:30 01/17/23 08:30 PG Care Time/CCT Total # of Minutes Spent Total Time Spent with Patient: Total time spent is greater than 50% in coordination of care (as documented) at patient's floor/unit and/or counseling patient: Coding Level of Care Code 80034 SUB INP/OBS CARE 2/35MIN Diagnoses Spinal stenosis of lumbar region with radiculopathy M48.061; M54.16 Diabetes mellitus, type 2 E11.9 Anxiety F41.9 Hypertension I10 Hyperlipidemia E78.5 Glaucoma H40.9 Left ankle pain M25.572
[2023-01-17] MEDS: LORazepam 1 MG TAB PO PRN (13:00)
[2023-01-17] MEDS ORDERED: bisacodyL 10 MG SUPP PR PRN (13:28)
[2023-01-17] MEDS: ATORVASTATIN 20 MG TAB PO SCH (20:59)
[2023-01-17] MEDS: LORazepam 1 MG TAB PO SCH (20:59)
[2023-01-17] MEDS: FENOFIBRATE NANOCRYSTALLIZED 145 MG TABLET PO SCH (20:59)
[2023-01-17] MEDS: ATENOLOL 25 MG TABLET PO SCH (20:59)
[2023-01-17] MEDS: TRAVOPROST Z 0.004% OPH SOLN 2.5 ML BTL OPB SCH (21:00)
[2023-01-18] MEDS: oxyCODONE HCL IR 5 MG TAB (IMMEDIATE RELEASE) PO PRN ×4 (01:54→14:25)
[2023-01-18] MEDS: ACETAMINOPHEN 500 MG TAB PO PRN ×2 (06:01→14:25)
[2023-01-18] MEDS: dexAMETHasone 8 MG in SYRINGE 0 ML IV SCH ×2 (06:01→14:26)
[2023-01-18] MEDS: POLYETHYLENE (MIRALAX) 17 GM PACK PO SCH (07:58)
[2023-01-18] MEDS: EMPAGLIFLOZIN 25 MG TAB PO SCH (07:59)
[2023-01-18] MEDS: lisinopril 20 MG TAB PO SCH (07:59)
[2023-01-18] MEDS: DORZOLAMIDE/TIMOLOL 22.3/6.8MG/ML 10 ML BTL OP SCH (07:59)
[2023-01-18] MEDS: CETIRIZINE HCL 10 MG TABLET PO SCH (08:00)
[2023-01-18] MEDS: DOCUSATE SODIUM 100 MG CAP PO SCH (08:00)
[2023-01-18] MEDS: SENNA 8.6 MG TAB PO SCH (08:00)
[2023-01-18] MEDS: LORazepam 1 MG TAB PO PRN (08:10)
[2023-01-18] MEDS: CYCLOBENZAPRINE HCL 10 MG TAB PO PRN (08:11)
[2023-01-18] MEDS: traMADol HCL 50 MG TABLET PO PRN ×2 (08:11→12:07)
[2023-01-18] MEDS: PREGABALIN 75 MG CAP PO SCH (08:11)
--- NOTE | 2023-01-18 08:29 | Discharge Summary ---
Date of Service January 18, 2023 Admission HPI Per Admitting Provider This is a 57-year-old female known to me that status post lumbar decompression fusion. She was doing well after an I&D of a seroma but early December she department had a marked decline in status that has not improved. She has pain across the left back and left buttock posterior thigh into the foot. It does limit her ability to sit stand and ambulate for any distance. It does awaken her from sleep. She has not been responsive to medications. She returns the ER today with worsening symptoms. Principal Diagnosis Failed lumbar fusion with loosening of hardware Discharge Data Allergies Allergy/AdvReac Type Severity Reaction Status Date / Time No Known Allergies Allergy Verified 01/11/23 10:27 Consultations 01/11/23 07:59 ED Decision to Admit Stat 01/11/23 13:02 Consult Anesthesiology Routine Consult Internal Medicine Routine 01/14/23 10:17 Consult Pain Management Routine Procedures Performed Operation Date: 01/12/23 13:05 Actual Procedures p L4-L5, L5-S1 Revision of Fusion, (Not Applicable) - Samir Herndon DO s Removal and replacement of hardware(Not Applicable) - Samir Herndon DO Ordered Studies 01/11/23 07:59 CT lumbar spine wo con Stat 01/12/23 13:05 FL lumbar spine 2-3V Routine Hospital Course (1) Spinal stenosis of lumbar region with radiculopathy: Patient was admitted with worsening back and left leg pain. She underwent revision decompression fusion. She tolerated procedure well. Postoperatively she continued to have neuropathic leg pain throughout her stay. Were able to manage her medications with some changes that became more effective in controlling her symptoms. She improved appropriately. Bowels working well. Ambulating without difficulty subsequent discharge home. Discharge orders instructions found in chart for further review. Total Time Total Time Spent Total Time Spent (In Minutes): 20 minutes Discharge Plan Discharge Items Patient Disposition: Home - Self-Care Reason For Visit: BACK PAIN Discharge Diagnosis: Loosening of lumbar instrumentation with radiculopathy Activity: As commented below Non-emergency contact: Primary Care Provider Call non-emergency contact if: you have any medication questions Follow-up/Referrals: Nichelle Pryor PA-C [Primary Care Provider] - Diet: Regular Addtl Attending Provider Instructions: ACTIVITY RECOMMENDATIONS: SELF CARE INSTRUCTIONS AFTER THORACIC/LUMBAR FUSIONS 1. You may walk to your tolerance. It is good exercise for your legs and back. Expect some back and intermittent leg aches and pains. 2. You may perform "counter-top" level activities (make a sandwich, ericka with a project, etc.). 3. No bending or lifting of more than 10 pounds or back twisting of any nature (roll like a log when turning in bed). 4. You may ride in a car for 20-30 minutes at a time. No driving until after your first visit with your doctor. 5. Frequent changes of position and restricting sitting to 30 minutes at a time will help limit the amount of back spasms and stiffness you may experience. 6. You may discontinue the use of ambulatory aids (cane, crutches, etc.) once your strength and confidence allow. 7. You may information technology data analyst the shower and let water strike your incision when you arrive home at least once daily. Do not take a tub bath, sit in a hot tub or go into a swimming pool until after your first recheck in the office. SPECIAL CARE INSTRUCTIONS: VERY IMPORTANT TO READ AND REVIEW A. Your surgical incision has been closed with a cosmetic suture under the skin that will dissolve in about 6 weeks. In 14 days, you can use a pair of clean scissors and cut the suture that is left outside of the skin at the ends of your incision. 1. The small skin tapes can be removed 7 days after surgery if they have not fallen off by that point. 2. You may keep the wound open to air as much as possible to promote healing after post-op day number 5 unless told otherwise by your doctor. 3. If you think the wound looks like it is becoming infected (redness or worsening drainage) and/or you are experiencing fever, chill or worsening back pain and muscle spasms, contact the office so that we may evaluate you as soon as possible. B. Complications are uncommon, but please contact us if you have any signs or symptoms of: 1. wound infection (fever higher than 102.5 degrees F, redness, separation of wound, drainage, or increasing pain from the incision) 2. blood clots in legs (pain, swelling, redness and warmth in legs) 3. urinary tract infection (fever higher than 102.5 degrees F, burning upon urination or increased frequency of urination) 4. nerve problems (inability to walk on your toes or heels, numbness, loss of bowel or bladder control) 5. any other symptoms that concern you C. Please call the office at if you have any concerns or questions about your operation or recovery. D. No smoking! Smoking drastically decreases the chance of a solid fusion. E. Do not take any anti-inflammatory medications (Indocin, Advil, Motrin, Aspirin, Naprosyn, etc.) as these may inhibit the chance of a solid fusion. Tylenol is okay to take for pain. MANAGING PAIN AFTER SPINAL SURGERY 1. Narcotic medication is intended for short-term use and will be provided for surgical pain. Surgical pain usually lasts for a period of 4-6 weeks. Narcotic medication includes Percocet, Vicodin, Darvocet, Tylenol #3 or Lortab. 2. Longer-term pain is more appropriately treated with non-narcotic medication such as Tylenol ES. 3. Muscle spasm is not appropriately treated with narcotics. Muscle relaxers such as Soma, Flexeril or Skelaxin can be used along with Tylenol ES. 4. Remember that we all live with some "aches and pains". This is not unusual or uncommon after an injury or as we get older. a. Back pain is expected and may include muscle spasms for 4 to 6 weeks after surgery. The pain should gradually improve. If the pain worsens for no apparent reason, please contact the office. b. Intermittent leg pain may also be experienced and should not be concerned about unless it worsens for no apparent reason. If so, please contact the office. 5. We will provide appropriate medication within the normal guidelines of their prescribed use. We will also be very cautious and aware of potential abuse and extended duration of patients' medication needs. a. Pain medications are for your comfort and to assist with sleep and rest so that the tissue can heal. They are not provided in order to return to normal activity and should not be used through the day. To do so or worsening pain at night can result from ongoing tissue damage and development of tolerance to the prescribed medicine. 6. Please allow 2-3 days to process refills. Prescriptions will not be mailed but must be picked up at the office. FOLLOW UP VISIT: Keep your scheduled follow-up appointment. Any questions, please call the office at . Pending Studies at Discharge: No Stand-Alone Forms: [facility], Smoking Cessation Medications and DC Order Prescriptions: New tramadol 50 mg tablet 50 mg PO Q6H PRN (Reason: pain, moderate) Qty: 30 0RF oxycodone 5 mg Tablet 10 mg PO Q6 PRN (Reason: pain) Qty: 30 0RF pregabalin [Lyrica] 75 mg Capsule 75 mg PO BID Qty: 60 3RF Continued tizanidine 4 mg tablet 4 mg PO BID PRN (Reason: muscle spasticity) Qty: 30 1RF metformin 500 mg Tablet 500 mg PO HS atorvastatin [Lipitor] 20 mg Tablet 20 mg PO HS cetirizine [Zyrtec] 10 mg Tablet 10 mg PO QAM atenolol 25 mg Tablet 25 mg PO QPM travoprost [Travatan Z] 0.004 % Drops 1 drp OPB HS lorazepam [Ativan] 1 mg Tablet 1 mg PO HS PRN (Reason: Anxiety) fenofibrate nanocrystallized 145 mg Tablet 145 mg PO HS lisinopril 20 mg Tablet 20 mg PO QAM dorzolamide-timolol 22.3-6.8 mg/mL Drops 1 drp OPHTHALMIC (EYE) [facility] hydromorphone [Dilaudid] 2 mg Tablet 4 mg PO Q6 PRN (Reason: pain) Qty: 30 0RF oxycodone 5 mg tablet 5 mg PO TID PRN (Reason: pain) Qty: 14 0RF methylprednisolone 4 mg tablets,dose pack 4 mg PO BID Jardiance 25 mg tablet 25 mg PO QAM acetaminophen [Tylenol Extra Strength] 500 mg Tablet 1,000 mg PO DIRECTED PRN (Reason: PAIN/FEVER) docusate sodium [Colace] 100 mg Capsule 100 mg PO DAILY tramadol 50 mg tablet 50 mg PO Q6H PRN (Reason: pain, moderate) Qty: 30 0RF oxycodone 5 mg tablet 5 mg PO Q6H PRN (Reason: pain) Qty: 30 0RF ondansetron HCl 4 mg tablet 4 mg PO QID PRN (Reason: nausea and vomiting) Qty: 20 0RF lidocaine 5 % adhesive patch,medicated 1 patch topical DAILY Qty: 15 0RF Rx Instructions: leave on most painful area for up to 12 hrs Discontinued cyclobenzaprine 10 mg tablet 10 mg PO BID PRN (Reason: Muscle Spasm) gabapentin 300 mg capsule 600 mg PO BID Discharge Orders: Discharge Order (Routine); Ordered 01/18/23 Ordered By: Samir Herndon Admission Data Admit Date/Time: 01/11/23 09:52 Attending Provider: Samir Herndon Admit Provider: Samir Herndon Primary Care Provider: Nichelle Pryor Other Providers: Samir Herndon ; Brandon Barrientos ; John Alcantara ; Fatemeh Angel ; Tio Clay ; [facility]
[2023-01-18 08:45] LABS: Basophils # (auto) 0.02 K/uL (0-0.2); Basophils % (auto) 0.2 %; Hematocrit (blood only) 39.6 % (37.0-47.0); Hemoglobin 12.7 g/dl (12.0-16.0); Immature Granulocytes # (auto) 0.19 K/uL (0.01-0.20); Immature Granulocytes % (auto) 1.5 %; Lymphocytes # (auto) 1.92 K/uL (1.2-3.4); Lymphocytes % (auto) 15.3 %; Mean Corpuscular Hemoglobin 29.7 pg (25.0-34.0); Mean Corpuscular Hgb Conc 32.1 g/dL (32.0-36.0); Mean Corpuscular Volume 92.5 fL (80.0-100.0); Mean Platelet Volume 9.8 fL (9.4-12.4); Monocytes # (auto) 0.52 K/uL (0.11-0.59); Monocytes % (auto) 4.2 %; Neutrophils # (auto) 9.88 K/uL (1.40-6.50); Neutrophils % (auto) 78.8 %; Platelet Count 488 K/uL (130-400); RDW Coefficient of Variation 13.4 % (11.5-14.5); Red Blood Count 4.28 M/uL (4.20-5.40); White Blood Count 12.53 K/ul (4.8-10.8)
[2023-01-18] MEDS: INSULIN ASPART PER UNIT CHARGE SC SCH ×2 (09:13→13:07)
[2023-01-18 09:14] LABS: BUN Creatinine Ratio 36.6 (10-20); Calcium 9.5 mg/dl (8.6-10.3); Creatinine Clr Calc Pharmacy 82.6 ml/min; Est GFR (African American) 109.6 ml/min; Est GFR (Non-African American) 94.6 ml/min; Potassium 4.8 mmol/L (3.5-5.1)
--- NOTE | 2023-01-18 12:04 | Hospitalist Progress Note ---
Date of Service January 18, 2023 Assessment & Plan (1) Spinal stenosis of lumbar region with radiculopathy: Plan: Admitted for repeat lumbar back surgery. Had initial surgery over a month ago and then was readmitted for postoperative hematoma which was drained. Now retu rned for recurrent radicular symptoms down LLE. On 01/12-she underwent removal of posterior instrumentation L4-S1, exploration of fusion L4-S1, placement of posterior instrumentation L4-S1, placement infuse collagen sponge by master graft in the posterior gutters L4-S1, revision decompression L4-L5 L5-S1 EBL 100 mL. POD#6. (2) Diabetes mellitus, type 2: Plan: ADA diet. Holding metformin. This will be restarted at discharge. Sliding scale insulin coverage as needed. (3) Anxiety: Plan: Acutely exacerbated by current medical condition. She takes lorazepam (4) Hypertension: Plan: Stable. Continue Atenolol and lisinopril (5) Hyperlipidemia: Plan: Stable. Continue Lipitor and fenofibrate (6) Glaucoma: Plan: Stable. Continue home eye gtts (7) Left ankle pain: Plan: Ongoing for several months, possibly due to antalgic gait from radiculopathy. Tenderness of the anterior lateral ankle in the soft tissues, suspect tendinopathy. X-ray of the ankle 01/12 negative for fracture. Continue icing, range of motion exercises. Recommend outpatient follow-up with orthopedics Plan Disposition- anticipate eventual discharge to IPR/snf or home per primary service. Admission and Anticipated Discharge Date Admission Date: January 11, 2023 Subjective Alert and oriented. Medically stable. Glucose 124. Postoperative day #6. She will be discharged by primary service either to home or to inpatient [facility] today, January 18 Review of Systems Review of Systems: Constitutional-no fever or chills ENT-no blurred vision, no double vision, no epistaxis, no sore throat Respiratory-no cough, no wheezing, no shortness of breath Cardiac-no palpitations, no chest pain, no syncope GI-no nausea, vomiting, diarrhea, melena, hematochezia -no urinary retention, no urinary incontinence, no dysuria, no hematuria Musculoskeletal-postoperative lumbar discomfort as expected Skin-no bruising, no rashes, no pruritus Neuro-no isolated weakness. Psych-no depression, no anxiety Physical Exam Physical Exam: General-alert and oriented x3, no fevers, no chills HEENT-head atraumatic and normocephalic, pupils equal and reactive to light, extraocular muscles intact Neck-no lymphadenopathy or thyromegaly, trachea midline Chest-clear to auscultation percussion. No rales wheezing or rhonchi Cardiac-regular rate and rhythm, normal S1 and S2 Abdomen-normal bowel sounds, nontender, no hepatosplenomegaly Extremities-no cyanosis, clubbing, or edema Neuro-cranial nerves II through XII intact, motor and sensory function within normal limits, strength symmetrical , no focal deficits Psych-normal affect, normal mood Results & Data Results & Data Vital Signs (Past 12 Hours) Vital Signs Temp Pulse Resp BP Pulse Ox O2 Del Method 01/18/23 08:06 36.4 C L 52 L 14 126/79 98 Room Air Laboratory Results 01/18/23 07:47 01/18/23 07:47 PG Care Time/CCT Total # of Minutes Spent Total Time Spent with Patient: Total time spent is greater than 50% in coordination of care (as documented) at patient's floor/unit and/or counseling patient: Coding Level of Care Code 82795 SUB INP/OBS CARE 2/35MIN Diagnoses Spinal stenosis of lumbar region with radiculopathy M48.061; M54.16 Diabetes mellitus, type 2 E11.9 Anxiety F41.9 Hypertension I10 Hyperlipidemia E78.5 Glaucoma H40.9 Left ankle pain M25.572
== END 2023-01-18 15:55 | disposition home health service (06) | DRG 460 ==
LOC: ED 07:08 → 3E 09:52